=== PATIENT | female | born 2000 | race Caucasian/White ===

== ENCOUNTER 2020-05-26 20:30 | Observation (INO) | payer OTHER, SELFPAY ==
--- OUTSIDE RECORDS SUMMARY | 2020-05-26 20:32 | XMS REPORT | Continuity of Care Document ---
:2000 Author Organization [facility] t Address [facility]3 Amari Rivera [address] [place] [address] Care Team Providers Name Role Phone Doctor Unassigned, Name Attending Clinician Unavailable Problems This patient has no known problems. Allergies, Adverse Reactions, Alerts This patient has no known allergies or adverse reactions. Medications This patient has no known medications. Procedures This patient has no known procedures. Encounters Start End Encounter Admission Attending Care Care Encounter Source Date/Time Date/Time Type Type Clinicians Facility Department ID 2019-12-04 2019-12-04 Orders Doctor BERTA [id number] 00:00:00 00:00:00 Only UnassignedMICHELLE [id number] [place] [facility] [id number] Results This patient has no known results.
[2020-05-26] MEDS ORDERED: ONDANSETRON 4 MG/2 ML VIAL ONE (20:58)
[2020-05-26] MEDS ORDERED: NA CHLORIDE 0.9% 1,000 ML ONE ×2 (20:58→21:36)
[2020-05-26 21:21] LABS: Absolute Lymphocytes (CBC) 1.2 K/uL (0.7-4.9); Basophils % 0.1 % (0-1.3); Hematocrit 43.9 % (36.0-45.0); Lymphocytes % 10.1 % (15.3-44.8); MPV 10.2 fL (7.6-11.3)
[2020-05-26 21:30] LABS: Albumin 4.9 g/dL (3.4-5.0); Bilirubin Direct 0.1 mg/dL (0-0.2); Bilirubin Total 0.6 mg/dL (0.2-1.0); Potassium 3.5 mmol/L (3.5-5.1); Protein, Total 8.1 g/dL (6.4-8.2)
[2020-05-26] MEDS ORDERED: DIPHENHYDRAMINE 50 MG/ML VIAL ONE (21:36)
[2020-05-26] MEDS ORDERED: METOCLOPRAMIDE 10 MG/2mL INJ ONE (21:36)
[2020-05-26] MEDS ORDERED: MAGNE/ALUM HYDROXD 30 ML UCUP ONE (22:20)
[2020-05-26] MEDS ORDERED: LIDOCAINE VISCOUS 2% SOLN 15 ML UDC ONE (22:20)
[2020-05-26 22:51] LABS: Blood Morphology Comment NOT SEEN (NOT SEEN); Platelet Estimate ADEQ
[2020-05-26] MEDS ORDERED: PIPER/TAZO/NS 3.375gm 3.375 GM/100 ML BAG ONE (23:26)
[2020-05-26 23:42] LABS: Urine Blood NEGATIVE (NEG); Urine Glucose NEGATIVE (NEG); Urine Protein NEGATIVE (NEG)
[2020-05-26 23:42] LABS: Barbiturates NEGATIVE (NEGATIVE); Benzodiazepines NEGATIVE (NEGATIVE); Cocaine NEGATIVE (NEGATIVE); METHAMPHETAM NEGATIVE (NEGATIVE); Methadone NEGATIVE (NEGATIVE); Opiates NEGATIVE (NEGATIVE); Phencyclidine NEGATIVE (NEGATIVE); THC Cannibis POSITIVE (NEGATIVE)
[2020-05-27] MEDS ORDERED: NA CHLORIDE 0.9% 1,000 ML ONE (00:59)
--- NOTE | 2020-05-27 01:03 | EDPHYS ---
Physician Documentation [facility] Name: Dafne Munguia Age: 20 yrs Sex: Female : 2000 Arrival Date: 05/26/2020 Time: 20:32 Bed 6 Private MD: ED Physician Adrian Martinez HPI: 05/26 20:49 This 20 yrs old Female presents to ER via Wheelchair with complaints of mh7 Vomiting, Dehydration. 20:49 The patient presents to the emergency department with nausea, that is moderate, mh7 vomiting, that is intermittent. Onset: The symptoms/episode began/occurred today. Possible causes: unknown. The symptoms are aggravated by nothing. The symptoms are alleviated by nothing. 20:50 Associated signs and symptoms: Pertinent positives: abdominal pain, nausea, vomiting, mh7 Pertinent negatives: anorexia, belching, constipation, diarrhea, dysuria, fever, flatulence, GI bleeding, hematuria, vaginal discharge. Severity of symptoms: At their worst the symptoms were moderate today, in the emergency department the symptoms are unchanged. Patient states that she has been walking outside for four hours then started having nausea and vomiting. She has had some abdominal cramping. Denies any fever, chest pain, cough, SOB, diarrhea, dysuria, sick contacts, or recent travel.. 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 - Social history:: Smoking status: Patient denies any tobacco usage or history of. Patient uses street drugs, marijuana, Patient/guardian denies using alcohol. ROS: 20:50 Constitutional: Negative for fever, chills, and weight loss, Eyes: Negative for injury, mh7 pain, redness, and discharge, ENT: Negative for injury, pain, and discharge, Neck: Negative for injury, pain, and swelling, Cardiovascular: Negative for chest pain, palpitations, and edema, Respiratory: Negative for shortness of breath, cough, wheezing, and pleuritic chest pain, Back: Negative for injury and pain, : Negative for injury, bleeding, discharge, and swelling, MS/Extremity: Negative for injury and deformity, Skin: Negative for injury, rash, and discoloration, Neuro: Negative for headache, weakness, numbness, tingling, and seizure, Psych: Negative for depression, anxiety, suicide ideation, homicidal ideation, and hallucinations, Allergy/Immunology: Negative for hives, rash, and allergies, Endocrine: Negative for neck swelling, polydipsia, polyuria, polyphagia, and marked weight changes, Hematologic/Lymphatic: Negative for swollen nodes, abnormal bleeding, and unusual bruising. Exam: 20:50 Head/Face: Normocephalic, atraumatic. Eyes: Pupils equal round and reactive to light, mh7 extra-ocular motions intact. Lids and lashes normal. Conjunctiva and sclera are non-icteric and not injected. Cornea within normal limits. Periorbital areas with no swelling, redness, or edema. Neck: Trachea midline, no thyromegaly or masses palpated, and no cervical lymphadenopathy. Supple, full range of motion without nuchal rigidity, or vertebral point tenderness. No Meningismus. Chest/axilla: Normal chest wall appearance and motion. Nontender with no deformity. No lesions are appreciated. Cardiovascular: Regular rate and rhythm with a normal S1 and S2. No gallops, murmurs, or rubs. Normal PMI, no JVD. No pulse deficits. Respiratory: Lungs have equal breath sounds bilaterally, clear to auscultation and percussion. No rales, rhonchi or wheezes noted. No increased work of breathing, no retractions or nasal flaring. Abdomen/GI: Soft, non-tender, with normal bowel sounds. No distension or tympany. No guarding or rebound. No evidence of tenderness throughout. Back: No spinal tenderness. No costovertebral tenderness. Full range of motion. Skin: Warm, dry with normal turgor. Normal color with no rashes, no lesions, and no evidence of cellulitis. MS/ Extremity: Pulses equal, no cyanosis. Neurovascular intact. Full, normal range of motion. Neuro: Awake and alert, GCS 15, oriented to person, place, time, and situation. Cranial nerves II-XII grossly intact. Motor strength 5/5 in all extremities. Sensory grossly intact. Cerebellar exam normal. Normal gait. Psych: Awake, alert, with orientation to person, place and time. Behavior, mood, and affect are within normal limits. 20:50 Constitutional: The patient appears in no acute distress, alert, awake, uncomfortable. Vital Signs: 20:40 BP 145 / 93; Pulse 63; Resp 16; Temp 97.6(O); Pulse Ox 100% on R/A; Weight 65.77 kg jb4 (R); Height 5 ft. 5 in. (165.10 cm) (R); Pain 10/10; 22:15 BP 159 / 98; Pulse 62; Resp 16; Pulse Ox 100% on R/A; jb4 23:15 BP 126 / 76; Pulse 73; Resp 16; Pulse Ox 100% on R/A; Pain 5/10; jb4 05/27 00:00 BP 112 / 70; Pulse 53; Resp 16; Pulse Ox 98% on R/A; rr5 01:15 BP 124 / 93; Pulse 55; Resp 16; Pulse Ox 100% ; Pain 10/10; rr5 01:39 BP 126 / 87; Pulse 53; Resp 17; Temp 98; Pulse Ox 98% ; rr5 05/26 20:40 Body Mass Index 24.13 (65.77 kg, 165.10 cm) jb4 MDM: 05/26 20:47 Patient medically screened. 7 05/27 00:58 Differential diagnosis: Nonspecific abd pain, gastritis, cholecystitis, pancreatitis, mh7 appendicitis, diverticulitis, viral gastroenteritis, gastroenteritis. Data reviewed: vital signs, nurses notes, lab test result(s), CBC, electrolytes, radiologic studies, CT scan. Data interpreted: Pulse oximetry: on room air is 100 %. Interpretation: normal. Counseling: I had a detailed discussion with the patient and/or guardian regarding: the historical points, exam findings, and any diagnostic results supporting the discharge/admit diagnosis, lab results, radiology results, the need for further work-up and treatment in the hospital. Response to treatment: the patient's symptoms have mildly improved after treatment. Physician consultation: Alcon Sen MD regarding patient's condition, and will see patient in inpatient room. Admission orders: after a detailed discussion of the patient's condition and case, the admit orders are written by me. 05/26 20:49 Order name: Basic Metabolic Panel; Complete Time: 21:36 [facility] 05/26 20:49 Order name: CBC with Diff; Complete Time: 23:02 [facility] 05/26 20:49 Order name: Hepatic Function; Complete Time: 21:36 [facility] 05/26 20:49 Order name: Lipase; Complete Time: 21:36 [facility] 05/26 20:49 Order name: Test, Serum; Complete Time: 21:36 [facility] 05/26 20:49 Order name: UDS; Complete Time: 23:47 [facility] 05/26 20:49 Order name: CPK; Complete Time: 21:36 [facility] 05/26 21:24 Order name: Manual Differential; Complete Time: 23:02 [facility] 05/26 23:16 Order name: Urine --Ancillary (enter results); Complete Time: 23:47 [facility] 05/26 23:16 Order name: Urine Dipstick--Ancillary (enter results); Complete Time: 23:47 [facility] 05/27 01:07 Order name: Basic Metabolic Panel [facility] 05/27 01:07 Order name: Basic Metabolic Panel [facility] 05/27 01:07 Order name: Lipase [facility] 05/27 01:07 Order name: Lipase [facility] 05/26 21:37 Order name: CT Abd/Pelvis - IV Contrast Only [facility] 05/27 01:07 Order name: Liver (Hepatic) Function [facility] 05/27 01:08 Order name: NPO [facility] 05/27 01:08 Order name: CBC with Automated Diff [facility] 05/27 01:08 Order name: CBC with Automated Diff [facility] 05/27 01:08 Order name: Liver (Hepatic) Function [facility] 05/26 20:49 Order name: IV Saline Lock; Complete Time: 21:00 [facility] 05/26 20:49 Order name: Labs collected and sent; Complete Time: 21:01 [facility] 05/26 20:49 Order name: Urine Dipstick-Ancillary (obtain specimen); Complete Time: 23:18 [facility] Administered Medications: 05/26 20:50 Drug: NS 0.9% 1000 ml {Note: Administered by RN. Danielito} Route: IV; Rate: 1000 ml; jb4 Site: right antecubital; 20:50 Drug: Pepcid 20 mg {Note: Administered by RN. Danielito} Route: IVP; Site: right jb4 antecubital; 21:22 Follow up: Response: No adverse reaction jb4 20:51 Drug: Zofran (Ondansetron) 4 mg {Note: Administered by DRU Esteves.} Route: IVP; Site: [facility] right antecubital; 21:22 Follow up: Response: No adverse reaction; Nausea unchanged; Vomiting unchanged jb4 21:30 Drug: Reglan 10 mg Route: IVP; Site: left antecubital; jb4 22:05 Follow up: Response: No adverse reaction; Marked relief of symptoms; Pain is decreased; jb4 Nausea is decreased; Vomiting decreased 21:32 Drug: Benadryl 25 mg Route: IVP; Site: left antecubital; jb4 22:05 Follow up: Response: No adverse reaction; Marked relief of symptoms jb4 21:33 Drug: NS 0.9% 1000 ml Route: IV; Rate: 1 bolus; Site: left antecubital; jb4 22:20 Drug: GI Cocktail without - (Maalox Suspension 30 ml, Lidocaine Liquid 2 % 15 jb4 ml) Route: PO; 23:35 Drug: Zosyn 3.375 grams Route: IVPB; Infused Over: 60 mins; Site: left antecubital; jb4 05/27 00:45 Drug: NS 0.9% 1000 ml Route: IV; Rate: 1000 ml; Site: left antecubital; rr5 01:41 Follow up: Response: No adverse reaction; IV Status: Completed infusion; IV Intake: rr5 1000ml 01:30 Drug: morphine 4 mg {Note: rass 0.} Route: IVP; Site: left antecubital; rr5 01:41 Follow up: Response: No adverse reaction; Pain is decreased; RASS: Alert and Calm (0) rr5 Disposition: 05/27/20 01:02 Hospitalization ordered by Alcon Sen for Observation. Preliminary diagnosis are Abdominal Pain, Vomiting. - Bed requested for Telemetry/MedSurg (observation). - Status is Observation. jb4 - Condition is Stable. - Problem is new. - Symptoms have improved. Signatures: Dispatcher [employer] EDWei Avery RN RN Flavia Borrego RN RN Aditya Peck RN RN [facility] Harmeet Biggs RN RN rr5 Adrian Martinez MD MD 7 Corrections: (The following items were deleted from the chart) 01:18 01:02 Hospitalization Ordered by Alcon Sen MD for Observation. Preliminary diagnosis cg is Abdominal Pain; Vomiting. Bed requested for Telemetry/MedSurg (observation). Status is Observation. Condition is Stable. Problem is new. Symptoms have improved. mh7 01:54 01:18 05/27/2020 01:02 Hospitalization Ordered by Alcon Sen MD for Observation. jb4 Preliminary diagnosis is Abdominal Pain; Vomiting. Bed requested for Telemetry/MedSurg (observation). Status is Observation. Condition is Stable. Problem is new. Symptoms have improved. cg
--- NOTE | 2020-05-27 01:03 | ER ---
Nurse's Notes [facility] Name: Dafne Munguia Age: 20 yrs Sex: Female : 2000 Arrival Date: 05/26/2020 Time: 20:32 Bed 6 Private MD: Diagnosis: Abdominal Pain;Vomiting Presentation: 05/26 20:40 Chief complaint: Patient states: I was walking around in the sun today for about 4 jb4 hours without eating or drinking anything. I have been vomiting since 1300. My stomach, chest, and esophagus are burning. Coronavirus screen: Proceed with normal triage. Ebola Screen: No symptoms or risks identified at this time. Initial Sepsis Screen: Does the patient meet any 2 criteria? No. Patient's initial sepsis screen is negative. Does the patient have a suspected source of infection? No. Patient's initial sepsis screen is negative. Risk Assessment: Do you want to hurt yourself or someone else? Patient reports no desire to harm self or others. Onset of symptoms was May 26, 2020. Transition of care: patient was not received from another setting of care. 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 - Social history:: Smoking status: Patient denies any tobacco usage or history of. Patient uses street drugs, marijuana, Patient/guardian denies using alcohol. Screenin:00 Abuse screen: Denies threats or abuse. Denies injuries from another. Nutritional rr5 screening: No deficits noted. Tuberculosis screening: No symptoms or risk factors identified. Fall Risk IV access (20 points). Total Brantley Fall Scale indicates No Risk (0-24 pts). Assessment: 20:49 General: Appears in no apparent distress. comfortable, Behavior is calm, cooperative. jb4 Pain: Complains of pain in chest and abdomen Pain does not radiate. Pain currently is 10 out of 10 on a pain scale. Quality of pain is described as burning, Pain began 1300 Is continuous. Neuro: Level of Consciousness is awake, alert, obeys commands, Oriented to person, place, time, situation. Cardiovascular: Patient's skin is warm and dry. Respiratory: Airway is patent Respiratory effort is even, unlabored, Respiratory pattern is regular, symmetrical. GI: Abdomen is flat, Bowel sounds present X 4 quads. Abd is soft X 4 quads Abd is non tender in right upper quadrant, left upper quadrant and right lower quadrant Abdomen is tender to palpation in left lower quadrant Reports lower abdominal pain, nausea, vomiting. : No signs and/or symptoms were reported regarding the genitourinary system. EENT: No signs and/or symptoms were reported regarding the EENT system. Derm: Skin is intact, Skin is dry, Skin is pale, Skin temperature is warm. Musculoskeletal: Circulation, motion, and sensation intact. Range of motion: intact in all extremities. 21:08 Reassessment: Pt's family member called, said something inaudible and hung up. Pt jb4 notified. 22:04 Reassessment: Patient appears in no apparent distress at this time. Patient and/or jb4 family updated on plan of care and expected duration. Pain level reassessed. Patient is alert, oriented x 3, equal unlabored respirations, skin warm/dry/pink. Patient states feeling better. 23:00 Reassessment: Patient appears in no apparent distress at this time. Patient and/or jb4 family updated on plan of care and expected duration. Pain level reassessed. Patient is alert, oriented x 3, equal unlabored respirations, skin warm/dry/pink. Provider at the bedside explaining test results. Pt verbalizes wanting to go home, provider and myself explained to the patient the possibility of worsening of symptoms up to the point of . Pt verbalized understanding of teaching, verbalized willingness to think it over. 23:30 Reassessment: Pt charging her phone to call family to determine if she wants to be jb4 admitted. 05/27 00:00 Reassessment: Patient appears in no apparent distress at this time. Patient and/or jb4 family updated on plan of care and expected duration. Pain level reassessed. Patient is alert, oriented x 3, equal unlabored respirations, skin warm/dry/pink. 01:00 Reassessment: Patient appears in no apparent distress at this time. Patient and/or jb4 family updated on plan of care and expected duration. Pain level reassessed. Patient is alert, oriented x 3, equal unlabored respirations, skin warm/dry/pink. Pt reports pain in her abdomen. Is doubled over in pain. Provider notified, see MAR for orders. Vital Signs: 05/26 20:40 BP 145 / 93; Pulse 63; Resp 16; Temp 97.6(O); Pulse Ox 100% on R/A; Weight 65.77 kg jb4 (R); Height 5 ft. 5 in. (165.10 cm) (R); Pain 10/10; 22:15 BP 159 / 98; Pulse 62; Resp 16; Pulse Ox 100% on R/A; jb4 23:15 BP 126 / 76; Pulse 73; Resp 16; Pulse Ox 100% on R/A; Pain 5/10; jb4 05/27 00:00 BP 112 / 70; Pulse 53; Resp 16; Pulse Ox 98% on R/A; rr5 01:15 BP 124 / 93; Pulse 55; Resp 16; Pulse Ox 100% ; Pain 10/10; rr5 01:39 BP 126 / 87; Pulse 53; Resp 17; Temp 98; Pulse Ox 98% ; rr5 05/26 20:40 Body Mass Index 24.13 (65.77 kg, 165.10 cm) jb4 ED Course: 05/26 20:32 Patient arrived in ED. cl3 20:33 Adrian Martinez MD is Attending Physician. mh7 20:40 Aditya Peck RN is Primary Nurse. jb4 20:44 Triage completed. jb4 20:45 Arm band placed on right wrist. jb4 20:55 Inserted saline lock: 20 gauge in left antecubital area, using aseptic technique. Blood rr5 collected. 21:01 Patient has correct armband on for positive identification. Bed in low position. Call rr5 light in reach. Pulse ox on. NIBP on. 22:14 CT Abd/Pelvis - IV Contrast Only In Process Unspecified. EDMS 05/27 01:00 Alcon Sen MD is Hospitalizing Provider. 7 01:41 No provider procedures requiring assistance completed. Patient admitted, IV remains in rr5 place. intact, No redness/swelling at site. Administered Medications: 05/26 20:50 Drug: NS 0.9% 1000 ml {Note: Administered by RN. Danielito} Route: IV; Rate: 1000 ml; jb4 Site: right antecubital; 20:50 Drug: Pepcid 20 mg {Note: Administered by RN. Danielito} Route: IVP; Site: right jb4 antecubital; 21:22 Follow up: Response: No adverse reaction jb4 20:51 Drug: Zofran (Ondansetron) 4 mg {Note: Administered by RN. Danielito} Route: IVP; Site: jb right antecubital; 21:22 Follow up: Response: No adverse reaction; Nausea unchanged; Vomiting unchanged jb4 21:30 Drug: Reglan 10 mg Route: IVP; Site: left antecubital; jb4 22:05 Follow up: Response: No adverse reaction; Marked relief of symptoms; Pain is decreased; jb4 Nausea is decreased; Vomiting decreased 21:32 Drug: Benadryl 25 mg Route: IVP; Site: left antecubital; jb4 22:05 Follow up: Response: No adverse reaction; Marked relief of symptoms jb4 21:33 Drug: NS 0.9% 1000 ml Route: IV; Rate: 1 bolus; Site: left antecubital; jb4 22:20 Drug: GI Cocktail without - (Maalox Suspension 30 ml, Lidocaine Liquid 2 % 15 jb4 ml) Route: PO; 23:35 Drug: Zosyn 3.375 grams Route: IVPB; Infused Over: 60 mins; Site: left antecubital; jb4 05/27 00:45 Drug: NS 0.9% 1000 ml Route: IV; Rate: 1000 ml; Site: left antecubital; rr5 01:41 Follow up: Response: No adverse reaction; IV Status: Completed infusion; IV Intake: rr5 1000ml 01:30 Drug: morphine 4 mg {Note: rass 0.} Route: IVP; Site: left antecubital; rr5 01:41 Follow up: Response: No adverse reaction; Pain is decreased; RASS: Alert and Calm (0) rr5 Intake: 01:41 IV: 1000ml; Total: 1000ml. rr5 Outcome: 01:02 Decision to Hospitalize by Provider. [facility] 01:41 Admitted to Med/surg accompanied by nurse, via stretcher, room 210, with chart, Report rr5 called to danyelle 01:41 Condition: stable 01:41 Instructed on the need for admit. 01:54 Patient left the ED. jb4 Signatures: Dispatcher [employer] EDAditya Fletcher RN RN jb4 Harmeet Biggs RN RN rr5 Valeriano Flores cl3 Adrian Martinez MD MD mh7
[2020-05-27] MEDS ORDERED: MORPHINE 4 MG/ML SYR IV PRN (01:06)
[2020-05-27] MEDS ORDERED: ONDANSETRON 4 MG/2 ML VIAL IV PRN (01:06)
[2020-05-27] MEDS ORDERED: MORPHINE 4 MG/ML SYR ONE (01:38)
[2020-05-27] MEDS ORDERED: D5 0.45 NS 1,000 ML IV SCH (02:00)
[2020-05-27 03:44] VITALS: BMI 24.0
[2020-05-27] MEDS ORDERED: PIPER/TAZO/NS 3.375gm 3.375 GM/100 ML BAG IVPB SCH ×2 (09:00)
[2020-05-27] MEDS ORDERED: Ringers Lactate 1,000 ML IV ONE (09:22)
[2020-05-27] MEDS ORDERED: BUPIVACA 0.25%/EPI 0.0005%/PF 30 ML VIAL ONE (09:23)
[2020-05-27] MEDS ORDERED: propofoL 200 MG/20 ML VIAL IV ONE (09:26)
[2020-05-27] MEDS ORDERED: MIDAZOLAM HCL 2 MG/2 ML INJ ONE (09:26)
[2020-05-27] MEDS ORDERED: FENTANYL CITR 100 MCG/2 ML ONE ×2 (09:26→10:28)
[2020-05-27] MEDS ORDERED: dexAMETHasone 10 MG/ML VIAL ONE (09:27)
[2020-05-27] MEDS ORDERED: LIDOCAINE 2% MPF 5 ML VIAL ONE (09:27)
[2020-05-27] MEDS ORDERED: KETOROLAC 30 MG/ML INJ ONE (09:27)
[2020-05-27] MEDS ORDERED: ROCURONIUM 50 MG/5 ML VIAL IV ONE (09:28)
[2020-05-27] MEDS ORDERED: ONDANSETRON 4 MG/2 ML VIAL ONE (09:28)
--- NOTE | 2020-05-27 09:57 | HP ---
Date of Admission: 05/27/2020 Brief History Of Present Illness: The patient is a 20-year-old female, who presents to [facility] with 1-day history of epigastric abdominal pain. She was working outside. She felt like she g ot dehydrated, had some nausea, vomiting, profuse abdominal pain in the epigastrium and periumbilical region which radiated predominantly down to the right lower quadrant. She has not had similar episo kraig before of this level of intensity, but has had a few episodes of abdominal pain in the right lowe r quadrant before, but were very mild compared to this. They only lasted for a day or two and ultima tely she resolved. She states that many of her family members have had their appendix removed. She is concerned that it might be an appendicitis, and as such, she came to the emergency room with the esther hawkins-stated complaint. Since being admitted, she has a significant improvement of pain with pain med ication, but otherwise continues to have pain in the right lower quadrant. It is essentially focused at this point and has some irritation to the suprapubic and right lower quadrant predominantly, but is predominantly focused and most intense in the right lower quadrant. She had some nausea and vomit ing associated. No sick contacts. No recent travel. No new food exposures. Past Medical History: Denies any medical problems. Past Surgical History: She has had an umbilical hernia repair at age 2. She does not recall the det ails of which other than she had her umbilical hernia repair, unknown mesh placement. She additional ly had left forearm surgery for an injury. Allergies: SHE IS ALLERGIC TO AN ANTIFUNGAL MEDICATION, NOT SULFA BY HER DESCRIPTION. SHE IS NOT AW ARE OF BEING ALLERGIC TO ANY SULFA ANTIBIOTICS, WHICH IS LISTED IN THE COMPUTER. SHE STATES THAT SHE IS ONLY ALLERGIC TO A FOOT SPRAY, WHICH WAS AN ANTIFUNGAL, WHICH CAUSED IRRITATION. Medications: She denies taking medications. She admits to smoking marijuana daily. She denies any recreational drug use. Otherwise, she drinks alcohol very sparingly by her report and denies cigaret te usage. Review of Systems: Ten-point review of systems other than HPI, denies. Family History: Reviewed and noncontributory. Physical Examination: Vital Signs: At the time of my examination, blood pressure was 119/71, pulse 75, respiratory rate 20 , temperature 98.0. Her pain level was between a 3 and a 5. She is saturating 97% on room air. General: She is awake, alert, and oriented. Psychiatric: She is appropriate and conversive. HEENT: Normocephalic. Sclerae anicteric. Mucous membranes are moist. Oropharynx is clear. Neck: Supple. No JVD. Chest: Normal expansion and excursion. Cardiovascular: Regular rate and rhythm. Pulmonary: Clear to auscultation bilaterally. Abdomen: Soft with positive right lower quadrant tenderness to palpation, focal at McBurney point. She has some mild voluntary guarding. No rebound. She has a scar from a well-healed umbilical herni a repair. There is no obvious umbilical hernia at this point. Pelvis: Stable. Extremities: No clubbing, cyanosis, edema. Skin: Warm and dry. Laboratory Data: Reveals a white blood cell count 11.6, hemoglobin of 14.9, hematocrit of 43.9, plat elet count is 182, neutrophils 87%. Her sodium 141, potassium 3.5, chloride 108, carbon dioxide 23, BUN 14, creatinine 0.8, glucose is 118. Her total bilirubin is 0.6, direct component 0.1. Her AST w as 33, ALT 36, alkaline phosphatase was 83. Her CK was 357, lipase was 49. Urine test was negative. She had trace leukocyte esterase in her urine, 4+ ketones. Her THC screen was positive; otherwise, tox screen was negative. Otherwise, she had a CT scan performed of the abdomen and pelvis . The official dictation was read as nonvisualization of the appendix and small amount of fluid in t he right lower quadrant. Acute appendicitis cannot be entirely excluded. Correlate with rebound ten derness. Physiologic pelvic change with heterogeneous enlargement of the uterus, 2 cm left ovarian c yst, and moderate amount of free pelvic fluid. No followup imaging is recommended. [id number] re periportal edema and a moderate hiatal hernia. Assessment And Plan: This is a 20-year-old female, who comes in with abdominal pain, nausea, vomitin g, and pain now localized to the right lower quadrant concerning for possible early appendicitis. 1.IV fluid hydration. 2.Antibiotic coverage with Zosyn 3.375 IV q.6. 3.I have explained the risks, benefits, and alternatives of diagnostic laparoscopy and possible appe ndectomy including, but not limited to bleeding, infection, damage to the surrounding tissue, need fo r further operative procedures. The patient agrees to proceed as indicated. BRANDIE/GLENN Voice ID: [id number]
[2020-05-27] MEDS ORDERED: GLYCOPYRROLATE 0.2 MG/ML SYR ONE ×2 (10:34→10:35)
[2020-05-27] MEDS ORDERED: NEOSTIGMINE 1 MG/ML -5 ML ONE (10:35)
--- NOTE | 2020-05-27 10:44 | P.OP ---
Preoperative diagnosis: Appendicitis Postoperative diagnosis: Appendicitis Primary procedure: Laparoscopic Appendectomy Anesthesia: GETA + Local Estimated blood loss: <5cc Specimen: Vermiform Appendix Findings: Mild dilation, RLQ inflammatory changes to periappediceal pelvis Complications: None Transferred to: Recovery Room Condition: Good
[2020-05-27 10:59] VITALS: O2SAT 100
[2020-05-27] MEDS ORDERED: HYDROCODONE/APAP 5/325 MG TAB PO PRN (11:36)
--- NOTE | 2020-05-27 11:47 | OP ---
Date of Procedure: 05/27/2020 Surgeon: Alcon Sen MD, Preoperative Diagnosis: Appendicitis. Postoperative Diagnosis: Appendicitis. Procedure Performed: Laparoscopic appendectomy. Anesthesia: General endotracheal plus local with 0.25% Marcaine with epinephrine. Estimated Blood Loss: Less than 5 mL. Specimen: Vermiform appendix. Findings: Mild dilatation to the appendix and right lower quadrant. Inflammatory changes in the per iappendiceal pelvis. Complications: None. Disposition: Transferred to recovery room in good condition. Procedure In Detail: After informed consent was obtained, the patient was brought to the operating r oom, prepped and draped in the usual sterile fashion. After adequate anesthesia was achieved, an inf raumbilical area was anesthetized with 0.25% Marcaine, sharply incised. A 5 mm trocar was introduced into the abdomen without evidence of complication. Insufflation was obtained to 15 mm at this time. No injury to vital structures upon entry into the abdomen. The abdomen was inspected this time. T here were some inflammatory changes and free physiologic fluid, which appeared murky in the pelvis an d the right lower quadrant and some mild inflammatory changes of the right lower quadrant in the sergo appendiceal region. Two additional trocars were placed, 1 in the right lower quadrant, 1 in the left lower quadrant. This was similarly anesthetized and sharply incised, and 5 mm trocar was introduced in the abdomen without evidence of complication. The umbilical trocar was then up-sized to a 12 mm under direct visualization without evidence of complication. The patient was positioned head down an d right side up position. Ratcheted grasper was used to grasp the patient's appendix, create a mesoa ppendiceal window at the confluence of the cecum with a [place] retractor and the Endo TRESA 35 blue l oad fired across the base of the appendix with good approximation of tissues. The mesoappendix was t hen taken down using LigaSure device without any additional hemostatic measures required. The staple line appeared to be good and intact without any evidence of bleeding or leakage. The appendix was t hen placed in EndoCatch bag and removed through the umbilical trocar and sent off for pathologic exam ination. The abdomen was completely reinsufflated at this point and irrigated copiously with multipl e liters of saline and suctioned out dry. The patient was positioned multiple ways and the pelvis wa s inspected. The adnexa was inspected also which had some physiologic fluid and evidence of possible recent ruptured luteal cyst, but no obvious cysts were appreciated. The area was copiously irrigate d multiple times. There was no bleeding. No additional hemostasis is required. No abscess or drain able collections were evident. All effluent was then sucked out until completely dry. The patient w as then positioned back in neutral position. The remainder of the effluent was suctioned out and the trocar site was inspected and the trocar was removed at the umbilical position. The umbilical troca r site was then closed using a Michael-Danilo suture passer with 0 Vicryl in an interrupted fashion without evidence of complication with good apposition of tissues. The abdomen was then completely de sufflated under direct visualization without evidence of complication. All trocars were removed. Al l skin incisions were copiously irrigated and closed with 4-0 Monocryl in a running fashion. Dermabo nd was placed over top. The patient tolerated the procedure well without evidence of complication, t ransferred to the PACU in good condition. All counts were correct at the end of the case. BRANDIE/GLENN Voice ID: [id number] Report ID: [id number]
[2020-05-27 12:14] VITALS: BP 129/79; TEMP 97.7
--- NOTE | 2020-05-30 08:52 | RAD REPORT ---
EXAM DESCRIPTION: CT - Abdomen Pelvis W Contrast - 05/27/2020 7:50 am ADDENDUM #1 ADDENDUM: THIS REPORT CONTAINS FINDINGS THAT MAY BE CRITICAL TO PATIENT'S CARE: The findings were verbally discussed via telephone conference with Adrian Martinez by Dr. Vega on 05/26/2020 10:57 PM CDT. The results were acknowledged and understood. Electronically signed by: Asif Vega DO 05/26/2020 10:57 PM CDT End of Addendum EXAM DESCRIPTION: CT Abdomen and Pelvis With Intravenous Contrast CLINICAL HISTORY: The patient is 20 years old and is Female; Abd pain; Nausea / vomiting TECHNIQUE: Axial computed tomography images of the abdomen and pelvis with intravenous contrast. S agittal and coronal reformatted images were created and reviewed. This CT exam was performed using one or more of the following dose reduction techniques: automated exposure control, adjustment of t he mA and/or kV according to patient size, and/or use of iterative reconstruction technique. DLP: 829 mGy*cm COMPARISON: None. FINDINGS: LUNG BASES: Lung bases are clear. HEART: Visualized heart is normal. MEDIASTINUM: Moderate hiatal hernia. ABDOMEN: LIVER: Moderate to severe periportal edema. GALLBLADDER AND BILE DUCTS: Unremarkable. No calcified stones. No ductal dilation. PANCREAS: Unremarkable. No mass. No ductal dilation. SPLEEN: Unremarkable. No splenomegaly. ADRENALS: Unremarkable. No mass. KIDNEYS AND URETERS: Subcentimeter left renal cyst. No hydronephrosis. STOMACH AND BOWEL: Unremarkable. No obstruction. No mucosal thickening. PELVIS: APPENDIX: Nonvisualization of the appendix. Small amount of fluid in the right lower quadrant. BLADDER: Bladder is decompressed. REPRODUCTIVE: Unremarkable as visualized. ABDOMEN and PELVIS: INTRAPERITONEAL SPACE: Physiologic pelvic changes with heterogenous enlargement of the uterus, 2 c m left ovarian cyst and moderate amount of free pelvic fluid. No free air. BONES/JOINTS: No acute fracture. No dislocation. SOFT TISSUES: Unremarkable. VASCULATURE: Unremarkable. No abdominal aortic aneurysm. LYMPH NODES: Unremarkable. No enlarged lymph nodes. IMPRESSION: 1. Nonvisualization of the appendix and small amount of fluid in the right lower quadr ant. Acute appendicitis cannot be entirely excluded. Correlate with rebound tenderness. 2. Physiologic pelvic changes with heterogenous enlargement of the uterus, 2 cm left ovarian cyst a nd moderate amount of free pelvic fluid. No follow-up imaging is recommended. Reference: US recommendations based on Radiology 2010 Sep;256(3):943-54; CT/MR recommendations based on J Am Ivon Radiol 2013;10:675-681. 3. Moderate to severe periportal edema. 4. Moderate hiatal hernia. Electronically signed by: Asif Vega DO 05/26/2020 10:44 PM CDT Due to temporary technical issues with the PACS/Fluency reporting system, reports are being signed by the in house radiologist without review as a courtesy to ensure prompt reporting. The interpreting r adiologist is fully responsible for the content of the report.
== END 2020-05-27 12:55 | disposition home or self-care (01) ==
LOC: ER 20:30 → ERHOLD 05-27 01:15 → 2ND 05-27 01:37
PROVIDERS: ADMIT Surgery; ATTEND Surgery
PROC: 0DTJ4ZZ Resection of Appendix, Percutaneous Endoscopic Approach (ICD-10-PCS; principal; 2020-05-27 09:15)
DX: K37 Unspecified appendicitis (principal); F12.90 Cannabis use, unspecified, uncomplicated; Z20.828 Contact with and (suspected) exposure to other viral communicable diseases; Z88.8 Allergy status to other drugs, medicaments and biological substances
CPT/HCPCS: 36415; 74177; 80048; 80076; 80307; 81003; 81025; 82550; 83690; 84703; 85025; 88304; 96361; 96374; 96375; 99285; G0378; J1100; J1200; J2250; J2405; J2543; J2704; J2710; J2765; J3010; J7030; J7120; J7799; Q9967; U0002

== ENCOUNTER 2020-07-28 17:10 | Emergency (ER) | payer BC, SELFPAY ==
--- OUTSIDE RECORDS SUMMARY | 2020-07-28 17:12 | XMS REPORT | Continuity of Care Document ---
:2000 Author Organization [facility] t Address [address] [place] [address] Care Team Providers Name Role Phone Doctor [...] ID 2019-12-04 2019-12-04 Orders Doctor BERTA [id number] 00:00:00 00:00:00 Only UnassMICHELLE schroeder [id number] [place] [facility] [id number] Results This patient has no known results.
[2020-07-28 18:56] LABS: Urine Blood NEGATIVE (NEG); Urine Glucose NEGATIVE (NEG); Urine Protein NEGATIVE (NEG); Urine Specific Gravity >1.030 (1.005-1.030); Urine pH 5.5 (5.0-7.0)
[2020-07-28] MEDS ORDERED: ONDANSETRON 4 MG (ODT) TAB ONE (19:01)
[2020-07-28] MEDS ORDERED: KETOROLAC 30 MG/ML INJ ONE (19:12)
--- NOTE | 2020-07-28 20:08 | EDPHYS ---
Physician Documentation [facility] Name: Dafne Munguia Age: 20 yrs Sex: Female : 2000 Arrival Date: 07/28/2020 Time: 17:12 Bed 19 Private MD: ED Physician Valente Mccormack HPI: 07/28 21:48 This 20 yrs old Female presents to ER via Ambulatory with complaints of kb Headache, Throat Problem. 21:50 The patient presents with sore throat. The patient describes throat pain as constant. kb Onset: The symptoms/episode began/occurred 3 day(s) ago. Severity of symptoms: At their worst the symptoms were moderate, in the emergency department the symptoms are unchanged. Modifying factors: The symptoms are alleviated by nothing, the symptoms are aggravated by nothing. Associated signs and symptoms: Pertinent positives: fever, Sore throat. The patient has not experienced similar symptoms in the past. The patient has not recently seen a physician. 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 - Social history:: Smoking status: Patient denies any tobacco usage or history of. ROS: 21:48 Cardiovascular: Negative for chest pain, palpitations, and edema, Respiratory: Negative kb for shortness of breath, cough, wheezing, and pleuritic chest pain, Abdomen/GI: Negative for abdominal pain, nausea, vomiting, diarrhea, and constipation, Back: Negative for injury and pain, MS/Extremity: Negative for injury and deformity, Skin: Negative for injury, rash, and discoloration. 21:48 Constitutional: Positive for body aches, fatigue, fever, malaise. 21:48 ENT: Positive for sore throat. 21:48 Neuro: Positive for headache. Exam: 21:48 Constitutional: This is a well developed, well nourished patient who is awake, alert, kb and in no acute distress. Head/Face: Normocephalic, atraumatic. ENT: Nares patent. No nasal discharge, no septal abnormalities noted. Tympanic membranes are normal and external auditory canals are clear. Oropharynx with no redness, swelling, or masses, exudates, or evidence of obstruction, uvula midline. Mucous membranes moist. Chest/axilla: Normal chest wall appearance and motion. Nontender with no deformity. No lesions are appreciated. Cardiovascular: Regular rate and rhythm with a normal S1 and S2. No gallops, murmurs, or rubs. Normal PMI, no JVD. No pulse deficits. Respiratory: Lungs have equal breath sounds bilaterally, clear to auscultation and percussion. No rales, rhonchi or wheezes noted. No increased work of breathing, no retractions or nasal flaring. Abdomen/GI: Soft, non-tender, with normal bowel sounds. No distension or tympany. No guarding or rebound. No evidence of tenderness throughout. Skin: Warm, dry with normal turgor. Normal color with no rashes, no lesions, and no evidence of cellulitis. MS/ Extremity: Pulses equal, no cyanosis. Neurovascular intact. Full, normal range of motion. Neuro: Awake and alert, GCS 15, oriented to person, place, time, and situation. Cranial nerves II-XII grossly intact. Motor strength 5/5 in all extremities. Sensory grossly intact. Cerebellar exam normal. Normal gait. 21:48 Neck: Lymph nodes: lymphadenopathy is appreciated, anterior cervical nodes. Vital Signs: 17:37 BP 126 / 83; Pulse 97; Resp 14; Temp 99.0(TE); Pulse Ox 99% on R/A; Weight 72.57 kg; ss Height 5 ft. 4 in. (162.56 cm); Pain 8/10; 18:53 BP 142 / 72; Pulse 87; Resp 16; Temp 98.5; Pulse Ox 98% on R/A; ll2 19:50 BP 113 / 49; Pulse 78; Resp 16; Pulse Ox 99% on R/A; ll2 17:37 Body Mass Index 27.46 (72.57 kg, 162.56 cm) ss MDM: 18:28 Patient medically screened. kb 21:48 Data reviewed: vital signs, nurses notes. Data interpreted: Pulse oximetry: on room air kb is 99 %. Interpretation: normal. Counseling: I had a detailed discussion with the patient and/or guardian regarding: the historical points, exam findings, and any diagnostic results supporting the discharge/admit diagnosis, lab results, the need for outpatient follow up, a family practitioner, to return to the emergency department if symptoms worsen or persist or if there are any questions or concerns that arise at home. 07/28 18:38 Order name: Urine Dipstick--Ancillary (enter results); Complete Time: 18:59 em1 07/28 18:38 Order name: Urine --Ancillary (enter results); Complete Time: 18:59 em1 07/28 18:50 Order name: Flu; Complete Time: 19:45 kb 07/28 18:50 Order name: Strep; Complete Time: 19:45 kb 07/28 19:43 Order name: Throat Culture EDMS Administered Medications: 18:58 Drug: Zofran (Ondansetron) 4 mg Route: PO; ll2 19:00 Follow up: Response: No adverse reaction ll2 19:08 Drug: TORadol 30 mg Route: IM; Site: left deltoid; ll2 Disposition: 07/28/20 20:07 Discharged to Home. Impression: Acute lymphadenitis, Acute pharyngitis. - Condition is Stable. - Discharge Instructions: Pharyngitis, [id number], Viral Respiratory Infection, [id number]. - Medication Reconciliation Form, Thank You Letter, Antibiotic Education, Prescription Opioid Use, Work release form form. - Follow up: Emergency Department; When: As needed; Reason: Worsening of condition. Follow up: Private Physician; When: 2 - 3 days; Reason: Recheck today's complaints, Continuance of care, Re-evaluation by your physician. Addendum: 08/02/2020 19:06 Co-signature as Attending Physician, Valente Mccormack MD. r n Signatures: Dispatcher [facility] Valentina Umanzor, FERMIN-Jovan EXCELLENCE MANAGER-CkValente Leach MD MD rn Smirch, Shelby, RN RN ss Linscombe, Lacie, RN RN ll2 Corrections: (The following items were deleted from the chart) 07/28 20:08 20:07 07/28/2020 20:07 Discharged to Home. Impression: Acute lymphadenitis. Condition kb is Stable. Forms are Medication Reconciliation Form, Thank You Letter, Antibiotic Education, Prescription Opioid Use. Follow up: Emergency Department; When: As needed; Reason: Worsening of condition. Follow up: Private Physician; When: 2 - 3 days; Reason: Recheck today's complaints, Continuance of care, Re-evaluation by your physician. kb 20:29 20:08 07/28/2020 20:07 Discharged to Home. Impression: Acute lymphadenitis; Acute ll2 pharyngitis. Condition is Stable. Forms are Medication Reconciliation Form, Thank You Letter, Antibiotic Education, Prescription Opioid Use. Follow up: Emergency Department; When: As needed; Reason: Worsening of condition. Follow up: Private Physician; When: 2 - 3 days; Reason: Recheck today's complaints, Continuance of care, Re-evaluation by your physician. kb
--- NOTE | 2020-07-28 20:08 | ER ---
Nurse's Notes [facility] Name: Dafne Munguia Age: 20 yrs Sex: Female : 2000 Arrival Date: 07/28/2020 Time: 17:12 Bed 19 Private MD: Diagnosis: Acute lymphadenitis;Acute pharyngitis Presentation: 07/28 17:37 Chief complaint: Patient states: Bump behind ear x 1 week that seems to be spreading ss down throat. Sore throat and chills that come and go that began yesterday. Coronavirus screen: Client denies travel out of the [place] in the last 14 days. Ebola Screen: Patient denies exposure to infectious person. Patient denies travel to an Ebola-affected area in the 21 days before illness onset. Initial Sepsis Screen: Does the patient meet any 2 criteria? No. Patient's initial sepsis screen is negative. Does the patient have a suspected source of infection? No. Patient's initial sepsis screen is negative. Risk Assessment: Do you want to hurt yourself or someone else? Patient reports no desire to harm self or others. Note Pt believes she may be . States, "It won't show up on a urine test. I'm scheduled to have a blood test on the .". Onset of symptoms was July 22, 2020. 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 - Social history:: Smoking status: Patient denies any tobacco usage or history of. Screenin:27 Abuse screen: Denies threats or abuse. Nutritional screening: No deficits noted. ll2 Tuberculosis screening: No symptoms or risk factors identified. Fall Risk None identified. Assessment: 18:51 General: Appears in no apparent distress. Behavior is calm, cooperative, appropriate ll2 for age. Pain: Complains of pain in neck and right ear Pain currently is 7 out of 10 on a pain scale. Neuro: Level of Consciousness is awake, alert, obeys commands, Oriented to person, place, time, situation. Cardiovascular: Capillary refill < 3 seconds Patient's skin is warm and dry. Respiratory: Airway is patent Respiratory effort is even, unlabored, Respiratory pattern is regular, symmetrical. GI: No signs and/or symptoms were reported involving the gastrointestinal system. : No signs and/or symptoms were reported regarding the genitourinary system. EENT: No signs and/or symptoms were reported regarding the EENT system. Derm: Skin is intact, is healthy with good turgor, Skin is dry, Skin is pink, warm \\T\\ dry. Musculoskeletal: Circulation, motion, and sensation intact. Range of motion: intact in all extremities. Vital Signs: 17:37 BP 126 / 83; Pulse 97; Resp 14; Temp 99.0(TE); Pulse Ox 99% on R/A; Weight 72.57 kg; ss Height 5 ft. 4 in. (162.56 cm); Pain 8/10; 18:53 BP 142 / 72; Pulse 87; Resp 16; Temp 98.5; Pulse Ox 98% on R/A; ll2 19:50 BP 113 / 49; Pulse 78; Resp 16; Pulse Ox 99% on R/A; ll2 17:37 Body Mass Index 27.46 (72.57 kg, 162.56 cm) ED Course: 17:12 Patient arrived in ED. ag5 17:39 Triage completed. ss 17:39 Arm band placed on right wrist. ss 18:19 Ariana Knutson, DRU is Primary Nurse. ll2 18:27 Valentina Umanzor FNP-C [facility]. kb 18:27 Valente Mccormack MD is Attending Physician. kb 20:27 Patient has correct armband on for positive identification. Bed in low position. Call ll2 light in reach. Side rails up X 1. Pulse ox on. NIBP on. 20:28 No provider procedures requiring assistance completed. Patient did not have IV access ll2 during this emergency room visit. Administered Medications: 18:58 Drug: Zofran (Ondansetron) 4 mg Route: PO; ll2 19:00 Follow up: Response: No adverse reaction ll2 19:08 Drug: TORadol 30 mg Route: IM; Site: left deltoid; ll2 Outcome: 20:07 Discharge ordered by . kb 20:29 Discharged to ll2 20:29 Condition: stable 20:29 Discharge instructions given to patient, Instructed on discharge instructions, follow up and referral plans. Demonstrated understanding of instructions, follow-up care. 20:29 Patient left the ED. ll2 Signatures: Valentina Umanzor FNP-C FNP-Gladys Nogueira, RN RN Frank Kate ag5 Ariana Knutson RN RN ll2
[2020-07-28 20:36] VITALS: TEMP 98.5
[2020-07-28 20:37] VITALS: BP 113/49; O2SAT 99
== END 2020-07-28 20:29 | disposition home or self-care (01) ==
LOC: ER 17:10
DX: L04.9 Acute lymphadenitis, unspecified (principal); Z88.8 Allergy status to other drugs, medicaments and biological substances
CPT/HCPCS: 81003; 81025; 87070; 87081; 87804; 96372; 99283

== ENCOUNTER 2020-10-02 13:47 | Emergency (ER) | payer BC ==
--- OUTSIDE RECORDS SUMMARY | 2020-10-02 13:49 | XMS REPORT | Continuity of Care Document ---
:2000 Author Organization [facility] t Address [address] [place] [address] Care Team Providers Name Role Phone Lew Viveros MD Attending Clinician Problems This patient has no known problems. Allergies, Adverse Reactions, Alerts This patient has no known allergies or adverse reactions. Medications This patient has no known medications. Procedures This patient has no known procedures. Encounters Start End Encounter Admission Attending Care Care Encounter Source Date/Time Date/Time Type Type Clinicians Facility Department ID 2020-08-02 2020-08-02 Telephone Ana Laura Viveros [id number] 00:00:00 00:00:00 Lew Alanis [id number] Rajani [id number] Profleo [id number] [facility] [address] Building Results This patient has no known results.
--- OUTSIDE RECORDS SUMMARY | 2020-10-02 13:50 | XMS REPORT | Summary of Care ---
:2000 Author Organization [facility] - [facility] Address [address] [place] [address] Care Team Providers Name Role Phone Pcp, Does Not Have A Primary Care Provider Encounter Details Date Type Department Care Team Description 08/01/2020 Orders Only [facility] Doctor Unassigned, No [address] [facility] [place] [address] [address] [id number] Allergies Active Allergy Reactions Severity Noted Date Comments Undecylenic Ac-Zinc Undecylena Hives 12/01/2015 documented as of this encounter (statuses as of 08/01/2020) Medications Medication Sig Dispensed Refills Start Date End Date Status ferrous sulfate (IRON) Take 325 mg by 0 Active 325 mg (65 mg iron) mouth 3 (three) tablet times daily with meals. miSOPROStol 200 mcg Take 1 tablet by 2 tablet 0 09/29/2018 Active tablet mouth SEE-INSTRUCTIONS. Take one tab the night before and one tab the morning of procedure ondansetron 4 mg Take 1 tablet by 12 tablet 0 04/20/2019 Active disintegrating mouth every 8 tabletIndications: (eight) hours as Nausea and vomiting in needed for Nausea adult patient, Chest and Vomiting pain in adult, Adverse (N/V). effect of nicotinic acid, initial encounter documented as of this encounter (statuses as of 08/01/2020) Active Problems Problem Noted Date 39 weeks gestation of 08/21/2018 Liveborn , of thakkar , born in [facility] by vaginal 08/21/2018 delivery Obesity (BMI 30-39.9) 08/15/2018 Anemia of in third trimester 07/23/2018 Gastroesophageal reflux disease, esophagitis presence not specified 07/14/2018 Family history of Down syndrome 01/23/2018 documented as of this encounter (statuses as of 08/01/2020) Resolved Problems Problem Noted Date Resolved Date Cervical shortening 08/21/2018 08/21/2018 35 weeks gestation of 07/23/2018 08/21/20 18 uterine contractions, antepartum, third trimester 08/21/2018 Constipation, unspecified constipation type 02/20/2018 08/21/2018 Nausea and vomiting during prior to 22 weeks 01/2307/30/2018 gestation Nausea and vomiting during 01/09/2018 Nausea and vomiting in 01/08/2018 018 with inconclusive viability 01/08/2018 07/30/2018 Hypokalemia 01/08/2018 07/30/2018 Uses oral contraception 12/23/2015 01/08/2018 documented as of this encounter (statuses as of 08/01/2020) Immunizations Name Administration Dates Next Due Influenza Virus Vaccine Quad .5 mL IM 6+ MO 08/07/2018 08/07/2019 MMR 08/22/2018 TDAP 06/18/2018 documented as of this encounter Social History Tobacco Use Types Packs/Day Years Used Date Never Smoker Smokeless Tobacco: Never Used Alcohol Use Drinks/Week oz/Week Comments No 0 Standard drinks or equivalent 0.0 occasional with parental consent Sex Assigned at Date Recorded Not on file documented as of this encounter Last Filed Vital Signs Not on filedocumented in this encounter Plan of Treatment Health Maintenance Due Date Last Done Comments VARICELLA VACCINES (1 of 2 - 02/20/2001 2-dose childhood series) MENINGOCOCCAL B VACCINES (1 of 02/20/2010 2 - Risk Bexsero 2-dose series) HPV VACCINES (1 - 2-dose 02/20/2011 series) Depression Screening 2012 WELL CARE VISIT: 12-21 YEARS 01/17/2018 01/17/2017, (yearly) 12/01/2015 CHLAMYDIA SCREENING 07/28/2019 07/28/2018, 07/23/2018, 01/17/2017 INFLUENZA VACCINE (#1) 2020 08/07/2018 DTaP,Tdap,and Td Vaccines (2 - 06/18/2028 06/18/2018 Td) MENINGOCOCCAL VACCINE Aged Out No longer eligible based on patient's age to complete this to pic PNEUMOCOCCAL 0-64 YEARS Aged Out No longe r eligible based COMBINED SERIES on patient's age to complete this to pic documented as of this encounter Procedures Procedure Name Priority Date/Time Associated Diagnosis Comme nts ASSIGNMENT OF BENEFITS Routine 08/01/2020 8:10 AM CDT documented in this encounter Results Not on filedocumented in this encounter Insurance Payer Benefit Plan / Subscriber ID Effective Dates Phone Addre ss Type Group BCBS OF BL[employer] [id number] 2020-[place]ase [phone] [address] [facility] [id number] [place] [address] documented as of this encounter Advance Directives Name Relationship Healthcare Agent Communication Relationship Abbi Lopez Mother Health Care Agent
--- OUTSIDE RECORDS SUMMARY | 2020-10-02 13:50 | XMS REPORT | Summary of Care ---
:2000 Author Organization [facility] Address [address] [place] [address] Care Team Providers Name Role Phone Pcp, Does Not Have A Primary Care Provider Reason for Visit Reason Comments LAB Encounter Details Date Type Department Care Team Description 08/01/2020 House Repairer Visit [facility] Ana Laura Viveros MD [address] [facility] [address] [place] [address] Screen for STD (sexually transmitted dis ease); Professional Office 2, [facility] Lab Breast tenderness; Building Phlebotomy Nausea; Lab Patient requested diagnostic testing Professional Office Building [address] [facility] , [address] [place] [address] Allergies Active Allergy Reactions Severity Noted Date Comments Undecylenic Ac-Zinc Undecylena Hives 12/01/2015 documented as of this encounter (statuses as of 08/01/2020) Medications Medication Sig Dispensed Refills Start Date End Date Status ferrous sulfate (IRON) Take 325 mg by 0 Active 325 mg (65 mg iron) mouth 3 (three) tablet times daily with meals. ondansetron 4 mg Take 1 tablet by 12 tablet 0 04/20/2019 Active disintegrating mouth every 8 tabletIndications: (eight) hours as Nausea and vomiting in needed for Nausea adult patient, Chest and Vomiting pain in adult, Adverse (N/V). effect of nicotinic acid, initial encounter vit Take by mouth. 0 A ctive calc,iron,folic ( VITAMIN ORAL) documented as of this encounter (statuses as of 08/01/2020) Active Problems Problem Noted Date 39 weeks gestation of 08/21/2018 Liveborn infant, of thakkar , born in [facility] by vaginal 08/21/2018 delivery Obesity (BMI [...] Never Used Alcohol Use Drinks/Week oz/Week Comments Not Currently 0 Standard drinks or equivalent occasional with parental consent Sex Assigned at Date Recorded Not on file COVID-19 Exposure Response Date Recorded In the last month, have you been in contact with No / Unsure 08/01/2020 8:12 AM CDT someone who was confirmed or suspected to have Coronavirus / COVID-19? documented as of this encounter Last Filed Vital Signs Not on filedocumented in this encounter Nursing Notes Venice Sloan - 08/01/2020 9:00 AM CDT Venipuncture collection performed by clean technique on the left anticubitus. Total of 1 attempts were made. Slight pressure and a bandage/dressing were applied to the site(s). The patient experienced no complications. The following specimens were processed according to instructions and sent to [facility] laboratories per lab order on 08/01/20: LT BLUE SST 3 RED 1 LAV 1 PPT DK GREEN (LiHep) DK GREEN (SodH) MOORE DK BLUE (K2) DK BLUE (S) ACD Blood Culture NIPT/NTD documented in this encounter Plan of Treatment Health [...] to pic documented as of this encounter Results Not on filedocumented in this encounter Visit Diagnoses Diagnosis Screen for STD (sexually transmitted dis ease) Screening examination for venereal disea se Breast tenderness Mastodynia Nausea Nausea alone Patient requested diagnostic testing Other specified general medical examinat ion documented in this encounter Insurance Payer Benefit Plan / Subscriber ID Effective Dates Phone Addre ss Type Group BCBS OF BLUE [employer]ENTIALS [id number] 2020-[place]ase [phone] [address] [facility] [address] [place] [address] documented as of this encounter Advance Directives Name Relationship Healthcare Agent Communication Relationship Abbi John Mother Health Care Agent
--- OUTSIDE RECORDS SUMMARY | 2020-10-02 13:50 | XMS REPORT | Summary of Care ---
:2000 Author Organization [facility] Address [address] [place] [address] Care Team Providers Name Role Phone Pcp, Does Not Have A Primary Care Provider Reason for Visit Reason Comments STD Screen Nausea SPOTTING 2-3 days last week Encounter Details Date Type Department Care Team Description 08/01/2020 Initial [facility] Women's ViverosAna Laura am, MD Breast tenderness (Primary Dx); Visit Healthcare- [address] [place] [address] Screen for STD (sexually transmitted disease); Annabelle ADORNO Nausea; [address] [facility] [address] requested [address] testing [address], [address] [place] [phone] Allergies Active Allergy Reactions Severity Noted Date Comments Undecylenic Ac-Zinc Undecylena Hives 12/01/2015 documented as of this encounter (statuses as of 08/01/2020) Medications Medication Sig Dispensed Refills Start Date End Date Status ferrous sulfate Take 325 mg by 0 Active (IRON) 325 mg (65 mouth 3 mg iron) tablet (three) times daily with meals. ondansetron 4 mg Take 1 tablet 12 tablet 0 04/20/2019 Active disintegrating by mouth every tabletIndications: 8 (eight) Nausea and vomiting hours as in adult patient, needed for Chest pain in Nausea and adult, Adverse Vomiting effect of nicotinic (N/V). acid, initial encounter vit Take by 0 Active calc,iron,folic mouth. ( VITAMIN ORAL) miSOPROStol 200 mcg Take 1 tablet 2 tablet 0 09/29/201808/01 Discontinued tablet by mouth 20 (Therapy SEE-INSTRUCTIO compl eted) NS. Take one tab the night before and one tab the morning of procedure documented as of this encounter (statuses as of 08/01/2020) Active Problems Problem Noted Date 39 weeks gestation of 08/21/2018 Liveborn , of thakkar , born in [facility] by vaginal 08/21/2018 delivery Obesity (BMI 30-39.9) [...] of this encounter Last Filed Vital Signs Vital Sign Reading Time Taken Comments Blood Pressure 126/78 08/01/2020 8:31 AM CDT Pulse 105 08/01/2020 8:31 AM CDT Temperature 37.1 C (98.8 F) 08/01/2020 8:31 AM CDT Respiratory Rate 18 08/01/2020 8:31 AM CDT Oxygen Saturation - - Inhaled Oxygen Concentration - - Weight 60.1 kg (132 lb 6.4 oz) 08/01/2020 8:31 AM CDT Height 167.6 cm (5' 6") 08/01/2020 8:31 AM CDT Body Mass Index 21.37 08/01/2020 8:31 AM CDT documented in this encounter Progress Notes Ana Laura Viveros MD - 08/01/2020 8:00 AM CDT Chief complaint: Chief Complaint Patient presents with STD Screen Nausea SPOTTING 2-3 days last week HPI Dafne Munguia is a 20 year old female . Patient is here for test and STD testing. Denies symptoms. LMP was 07/06/2020, given her 3 5/7 weeks. Patient reports having normal menstrual cycles monthly except for this month, she has vaginal spotting for about 2-3 days last week with nausea and breast tenderness. Patient reports has started taking prenatals. Histories OB History Para Term AB Living 2 1 1 0 1 1 SAB TAB Ectopic Multiple Live Births 0 0 0 0 1 # Outcome Date GA Lbr Eleazar/2nd Weight Sex Delivery Anes PTL Lv 2 AB 12/28/19 1 Term 08/21/18 39w0d 7 lb 9 oz (3.43 kg) M VAGINAL EPI SO Past Medical History: Diagnosis Date Anemia of in third trimester 07/23/2018 Anxiety situational in the past two years Family History Problem Relation Age of Onset Hypertension Mother Asthma Mother Arthritis Mother Asthma Sister Asthma Brother Diabetes Maternal Grandmother Hypertension Maternal Grandmother Diabetes Maternal Grandfather Hypertension Maternal Grandfather High cholesterol Maternal Grandfather Diabetes Paternal Grandmother Heart Paternal Grandmother Arthritis Paternal Grandmother defects NoFHx Breast Cancer NoFHx Colon Cancer NoFHx Ovarian Cancer NoFHx Uterine Cancer NoFHx Cancer NoFHx Depression NoFHx Genetic NoFHx Mental retardation NoFHx Neurological NoFHx Osteoporosis NoFHx Psychiatry NoFHx Family Status Relation Name Status Mo Alive Fa Alive Sis (Not Specified) Bro (Not Specified) MGMo (Not Specified) MGFa (Not Specified) PGMo (Not Specified) NoFHx (Not Specified) Past Surgical History: Procedure Laterality Date ABDOMEN SURGERY PROC UNLISTED APPENDECTOMY 04/2020 FRACTURE SURGERY Left Forearm HERNIA REPAIR @ age 2 UMBILICAL HERNIORRHAPHY @ age 2 Social History Socioeconomic History Marital status: Single Spouse name: Not on file Number of children: Not on file Years of education: Not on file Highest education level: Not on file Occupational History Occupation: [employer] Student Comment: [employer] Social Needs Financial resource strain: Not on file Food insecurity Worry: Not on file Inability: Not on file Transportation needs Medical: Not on file Non-medical: Not on file Tobacco Use Smoking status: Never Smoker Smokeless tobacco: Never Used Substance and Sexual Activity Alcohol use: Not Currently Comment: occasional with parental consent Drug use: Not Currently Types: Marijuana Comment: Last THC consumption over a year Sexual activity: Yes Partners: Male control/protection: None Lifestyle Physical activity Days per week: Not on file Minutes per session: Not on file Stress: Not on file Relationships Social connections Talks on phone: Not on file Gets together: Not on file Attends restoration service: Not on file Active member of club or organization: Not on file Attends meetings of clubs or organizations: Not on file Relationship status: Not on file Intimate partner violence Fear of current or ex partner: Not on file Emotionally abused: Not on file Physically abused: Not on file Forced sexual activity: Not on file Other Topics Concern Service Not Asked Blood Transfusions Not Asked Caffeine Concern Not Asked Occupational Exposure Not Asked Hobby Hazards Not Asked Sleep Concern Not Asked Stress Concern Not Asked Weight Concern Not Asked Special Diet Not Asked Back Care Not Asked Exercise Not Asked Bike Helmet Not Asked Seat Belt Yes Self-Exams Yes Comment: Breast Self Awarness discussed Social History Narrative Denies any physical or domestic abuse within the home Lives with her Fiance' Anglican Preference: Latter-Day Social History Substance and Sexual Activity Sexual Activity Yes Partners: Male control/protection: None Labs No new labs Radiology No new radiology. Allergies Dafne is allergic to antifungal [undecylenic ac-zinc undecylena]. Medications Dafne has a current medication list which includes the following prescription(s): vit calc,iron,folic, ondansetron, and ferrous sulfate. Review of Systems Constitutional: Negative for chills, fatigue and fever. HENT: Negative for congestion, rhinorrhea, sneezing and sore throat. Respiratory: Negative for cough, chest tightness, shortness of breath and wheezing. Breasts: Negative for discharge, mass, pain and unequal size. Tenderness Cardiovascular: Negative for chest pain and palpitations. Gastrointestinal: Positive for nausea. Negative for abdominal distention, abdominal pain, anal bleeding, blood in stool, constipation, diarrhea and vomiting. Genitourinary: Negative for dysuria, urgency, frequency, vaginal bleeding and vaginal discharge. Musculoskeletal: Negative for gait problem. Skin: Negative for rash. Neurological: Negative for syncope, light-headedness and headaches. Psychiatric/Behavioral: Negative for dysphoric mood, self-injury and suicidal ideas. Hematological: Negative for cold intolerance and heat intolerance. Does not bruise/bleed easily. Endocrine: Negative for cold intolerance and heat intolerance. BP 126/78 (BP Location: Left arm, Patient Position: Sitting, BP CUFF SIZE: Adult Medium) | Pulse 105 | Temp 37.1 C (98.8 F) (Oral) | Resp 18 | Ht 5' 6" (1.676 m) | Wt 132 lb 6.4 oz (60.1 kg) | LMP 07/06/2020 (Exact Date) | No | BMI 21.37 kg/m Pregravid BMI: Could not be calculated Physical Exam Vitals reviewed. Constitutional: She is oriented to person, place, and time. Her body habitus is normal. Cardiovascular: Regular rate and rhythm. Pulmonary/Chest: Normal inspiratory effort. Neuro/Psychiatric: She has a normal mood and affect. She is oriented to person, place, and time. Assessment/Plan Breast tenderness (primary encounter diagnosis) Plan: HCG, QUANTITATIVE, Screen for STD (sexually transmitted disease) Plan: ADC / [facility] - DRUG SCREEN TRIAGE, ADC OR [facility] ONLY - RPR, GC & CHLAMYDIA AMPLIFIED ASSAY, TRICHOMONAS AMPLIFIED ASSAY, HEPATITIS B SURFACE ANTIGEN, HCV ANTIBODY, POCT TEST, POCT URINALYSIS W/O SPECIFIC GRAVITY, WORKUP, BLOOD BANK, HIV 1/2 AG-AB WITH REFLEX, HSV 1 AND 2 GLYCOPROTEIN G IGG Nausea Plan: POCT TEST, HCG, QUANTITATIVE, Patient requested diagnostic testing Plan: HCG, QUANTITATIVE, . If Beta-HCG is negative and if patient does not have a period, RTC for further evaluation. This visit did not involve counseling and coordination that comprised more than 50% of the visit time. Scribe's Attestation I, Drew Mcdonnell , am scribing for, and in the presence of, Ana Laura Viveros MD who performed the services described here-in. Drew Mcdonnell, August 01, 2020, 8:31 AM Physician's Attestation I have seen and examined the patient and agreed with the note above Ana Laura Viveros MD 08/01/2020 8:48 AM documented in this encounter Plan of Treatment Name Type Priority Associated Diagnoses Order S chedule ADC / [facility] - DRUG SCREEN LAB Routine Screen for STD (s exually Ordered: 08/01/2020 TRIAGE transmitted disease) ADC OR [facility] ONLY - RPR LAB Routine Screen for STD (sexually Expected: 08/01/2020, transmitted disease) Expires : 10/31/2020 GC & CHLAMYDIA AMPLIFIED LAB Routine Screen for STD ( sexually Ordered: 08/01/2020 ASSAY transmitted disease) TRICHOMONAS AMPLIFIED LAB Routine Screen for STD (sex ually Ordered: 08/01/2020 ASSAY transmitted disease) HEPATITIS B SURFACE LAB Routine Screen for STD (sexua lly Expected: 08/01/2020, ANTIGEN transmitted disease) Expires : 10/31/2020 HCV ANTIBODY LAB Routine Screen for STD (sexually Exp ected: 08/01/2020, transmitted disease) Expires : 10/31/2020 WORKUP, BLOOD LAB Routine Screen for STD (se xually Expected: 08/01/2020, BANK transmitted disease) Expires : 10/31/2020 HIV 1/2 AG-AB WITH REFLEX LAB Routine Screen for STD (sexually Expected: 08/01/2020, transmitted disease) Expires : 08/01/2021 HSV 1 AND 2 GLYCOPROTEIN G LAB Routine Screen for STD (sexually Expected: 08/01/2020, IGG transmitted disease) Expires : 08/01/2021 HCG, QUANTITATIVE, LAB Routine Breast tender ness Expected: 08/01/2020, Nausea Expires: 08/01/2021 Patient requested diagnostic testing Health Maintenance Due Date Last Done Comments [...] Name Priority Date/Time Associated Diagnosis Comme nts POCT URINALYSIS W/O Routine 08/01/2020 Screen for STD Result s for this SPECIFIC GRAVITY (sexually transmitted pr ocedure are in the disease) results section . POCT TEST Routine 08/01/2020 Screen for STD Result s for this (sexually transmitted proced ure are in the disease) results section. Nausea documented in this encounter Results POCT URINALYSIS W/O SPECIFIC GRAVITY (08/01/2020) Pathologist Sig nature POCT PH U 6.5 5 - 8 mg/dl POCT U LEUK EST neg Negative - Negative POCT U NIT neg Negative - Negative POCT U PROT neg Negative - Negative POCT U GLU neg Negative - Negative POCT U KETONE trace Negative - Negative POCT U BLD neg Negative - Negative Specimen Urine - URINE, CLEAN CATCH POCT TEST (08/01/2020) Pathologist Sig nature POCT PREG Negative On board controls acceptable Yes with C Line POCT PREG LOT # POCT PREG TEST DATE Specimen Urine - URINE, CLEAN CATCH documented in this encounter Visit Diagnoses Diagnosis Breast tenderness - Primary Mastodynia Screen for STD (sexually transmitted dis ease) Screening examination for venereal disea se Nausea Nausea alone Patient requested diagnostic testing Other specified general medical examinat ion documented in this encounter Insurance Payer Benefit Plan / Subscriber ID Effective Dates Phone Addre ss Type Group BCBS OF [employer] [id number] 2020-[place] [phone] [address] [place] [id number] [place] [address] documented as of this encounter Advance Directives Name Relationship Healthcare Agent Communication Relationship Abbi Lopez Mother Health Care Agent
--- OUTSIDE RECORDS SUMMARY | 2020-10-02 13:50 | XMS REPORT | Summary of Care ---
:2000 Author Organization [facility] Address [address] [place] [address] Care Team Providers Name Role Phone Pcp, Does Not Have A Primary Care Provider Reason for Visit Reason Comments Results Encounter Details Date Type Department Care Team Description 08/01/2020 Telephone [facility] Women's ViverosAna Laura MD Results Healthcare- [address] [address] [address] [place] [address] [place] [address] [phone] Allergies Active Allergy Reactions Severity Noted Date [...] Liveborn infant, of thakkar , [facility] by vaginal 08/21/2018 delivery Obesity (BMI [...] Signs Not on filedocumented in this encounter Miscellaneous Notes Telephone Encounter - Aarti Jennings RN - 08/01/2020 5:04 PM CDTSee result note Aarti Jennings RN 08/01/2020 5:04 PM Telephone Encounter - Krystyna Meza - 08/01/2020 2:24 PM CDTPatient is calling and is requesting to speak to the nurse in regards to her lab results, please call patient back in regards to this encounter. documented in this encounter Plan of Treatment [...] ss Type Group BCBS OF BLUE ESSENTIALS [id number] 2020-[place]ase [phone] [address] [address] [id number] [place] [address] documented as of this encounter Advance Directives Name Relationship Healthcare Agent Communication Relationship Abbi John Mother Health Care Agent
--- OUTSIDE RECORDS SUMMARY | 2020-10-02 13:51 | XMS REPORT | Summary of Care ---
:2000 Author Organization [facility] Address [address] [place] [address] Care Team Providers Name Role Phone Pcp, Does Not Have A Primary Care Provider Reason for Visit Reason Comments STD Screen Nausea SPOTTING 2-3 days last week Encounter Details Date Type Department Care Team Description 08/01/2020 Initial [facility] Women's ViverosAna Laura am, MD Breast tenderness (Primary Dx); Visit Healthcare- [address] [place] [address] Screen for STD (sexually transmitted disease); Annabelle ADORNO Nausea; [address] [facility] Kris [address], [address] [place] [phone] Allergies Active Allergy Reactions Severity Noted Date Comments Undecylenic Ac-Zinc Undecylena Hives 12/01/2015 documented as of this encounter (statuses as of 08/02/2020) Medications Medication Sig Dispensed Refills Start Date [...] as of this encounter (statuses as of 08/02/2020) Active Problems Problem Noted Date 39 weeks gestation of 08/21/2018 Liveborn , of thakkar , born in [facility] by vaginal 08/21/2018 delivery Obesity (BMI 30-39.9) 08/15/2018 Anemia of in third trimester 07/23/2018 Gastroesophageal reflux disease, esophagitis presence not specified 07/14/2018 Family history of Down syndrome 01/23/2018 documented as of this encounter (statuses as of 08/02/2020) Resolved Problems Problem Noted Date Resolved Date [...] as of this encounter (statuses as of 08/02/2020) Immunizations Name Administration Dates Next Due Influenza [...] level: Not on file 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 Allergies Dafen is allergic to antifungal [undecylenic ac-zinc undecylena]. [...] STD (sexually transmitted disease) Plan: ADC / [facility] - DRUG SCREEN TRIAGE, ADC OR [facility] ONLY - RPR, GC & CHLAMYDIA AMPLIFIED [...] 08/01/2020 8:48 AM documented in this encounter Miscellaneous Notes Addendum Note - Teresa Humphreys MA - 08/01/2020 8:00 AM CDT Addended by: TERESA HUMPHREYS on: 08/02/2020 09:52 AM Modules accepted: Orders ddendum Note - Jeffery Barnard - 08/01/2020 8:00 AM CDT Addended by: JEFFERY BARNARD on: 08/02/2020 09:02 AM Modules accepted: Orders documented in this encounter Plan of Treatment Name Type Priority Associated Diagnoses Date/Ti me GC & CHLAMYDIA AMPLIFIED LAB Routine Screen for STD ( sexually 08/01/2020 8:46 AM ASSAY transmitted disease) CDT TRICHOMONAS AMPLIFIED LAB Routine Screen for STD (sex ually 08/01/2020 8:46 AM ASSAY transmitted disease) CDT HSV 1 AND 2 GLYCOPROTEIN LAB Routine Screen for STD ( sexually 08/01/2020 9:05 AM G IGG transmitted disease) CDT Name Type Priority Associated Diagnoses Order S chedule HSV 1 AND 2 GLYCOPROTEIN G LAB Routine Screen for STD (sexually Expected: 08/01/2020, IGG transmitted disease) Expires : 08/01/2021 URINE DRUG (LCMSMS) - LAB Routine Nausea Expect ed: 08/02/2020, CANNABINOID Expires: 2020 (MARIJUANA/THC) PANEL Health Maintenance Due Date Last Done Comments [...] Name Priority Date/Time Associated Diagnosis Comme nts ADC / LCC - DRUG Routine 08/01/2020 8:46 Screen for STD Resul ts for this SCREEN TRIAGE AM CDT (sexually procedure are in transmitted disease) the res ults section. POCT URINALYSIS W/O Routine 08/01/2020 Screen for STD Result s for this SPECIFIC GRAVITY (sexually procedure a re in transmitted disease) the res ults section. POCT TEST Routine 08/01/2020 Screen for STD Result s for this (sexually procedure are i n transmitted dise ase) the results Nausea section. documented in this encounter Results HCG, QUANTITATIVE, (08/01/2020 9:05 AM CDT) Pathologist Sig nature BETA HCG <2.39 Non- female [facility] HOSP ITAL and male patients: <5 LABORATORY mIU/mL Specimen Blood Narrative Performed At [facility] LABORATORY Gestational Age Range (mIU/mL) 1-10 Weeks 4 4-400303 11-15 Weeks 29619-028334 16-22 Weeks 7480-525717 23-40 Weeks 1531-770149 Biotin has been reported to cause a negative bias, interpret results relative to patient's use of biotin. Performing Organization Address City/State/Zipcode Phone Number [facility] CLIA: [id number] [place], [place] [id number] LABORATORY [address] HIV 1/2 AG-AB WITH REFLEX (08/01/2020 9:05 AM CDT) Pathologist Sig [facility] HIV 1/2 Ag-Ab with Negative Negative [facility] HOSPITAL LABORATORY HIV Semi-quantitative 0.10 [facility] LABORATORY Specimen Blood Narrative Performed At Non-reactive for HIV-1 antigen and HIV-1/HIV-2 [facility] LABORATORY antibodies. No laboratory evidence of HIV infection. Repeat in 2-4 weeks if acute HIV infection is suspected. Performing Organization Address City/State/Zipcode Phone Number [facility] CLIA: [id number] [place] [address] [place] [address] HCV ANTIBODY (08/01/2020 9:05 AM CDT) Pathologist Sig nature HCV Ab Negative [facility] LABORATORY SERVICES HCV Semi-Quantitative 0.01 [facility] LABORATORY SERVICES Specimen Blood Performing Organization Address City/[facility]/Zipcode Phone Number [facility] LABORATORY SERVICES CLIA: [id number] [place], [place] [address] [address] [place] [address] HEPATITIS B SURFACE ANTIGEN (08/01/2020 9:05 AM CDT) Pathologist Sig [facility] HBsAg Negative Negative [facility] LABORATORY SERVICES HBsAg 0.12 [facility] LABORATORY Semi-Quantitative SERVICES Specimen Blood Performing Organization Address City/[facility]/Zipcode Phone Number [facility] LABORATORY SERVICES CLIA: [id number] [place], [place] [address]185 [address] [place] [address] ADC OR [facility] ONLY - RPR (08/01/2020 9:05 AM CDT) Pathologist Sig [facility] RPR (Qualitative) Nonreactive Nonreactive [facility] LABORATORY Specimen Blood Performing Organization Address City/State/Zipcode Phone Number [facility] CLIA: [id number] [place], [place] [address] LABORATORY [address] [place] [address] WORKUP, BLOOD BANK (08/01/2020 9:03 AM CDT) Pathologist Sig [facility] ABO & RH O POSITIVE LAB Comment: Performed at [facility] Laboratory Services - [facility] Blood Bank [address] [place] [address], [place], [place] [address] Toll Free: [phone] CLIA No. [id number] IAT Negative LAB Comment: Performed at [facility] Laboratory Services - [facility] Blood Bank [address] [place] [address] Toll Free: [phone] CLIA No. [id number] Specimen Blood - VENOUS Performing Organization Address City/[facility] Phone Number D LAB ADC / LCC - DRUG SCREEN TRIAGE (08/01/2020 8:46 AM CDT) BENZO U Negative Negative [facility] LABORAT[facility] KARSTEN U Negative Negative [facility] AMPHET Negative Negative [facility] LABOR[facility] THC Presumptive Positive Negative [facility] (A)Comment: HOSPITAL Confirmation of LABORATORY Presumptive Positive THC result requires physician order. METHADONE Negative Negative [facility] LABORATORY Meth U Negative Negative [facility] LAB[facility] OPIATES Negative Negative [facility] Cocaine Metabolite Negative Negative [facility] PROPOXY Negative Negative [facility] Tric U Negative Negative [facility] PCP Negative Negative [facility] OXYCOD Negative Negative [facility] LABOR[facility] Specimen Urine - URINE, CLEAN CATCH Narrative Performed At Urine Drug Cutoff Ranges [facility] LABORATORY Benzodiazepines: 150 ng/mL Barbiturates: 200 ng/mL Amphetamine: 500 ng/mL Cannabinoids: 50 ng/mL Methadone: 200 ng/mL Methamphetamine: 500 ng/mL Opiates: 100 ng/mL or 2000 ng/mL Cocaine: 150 ng/mL Propoxyphene: 300 ng/mL Tricyclics: 300 ng/mL Oxycodone: 100 ng/mL PCP: 25 ng/mL The results are to be used only for medical (i.e., treatment) purposes. Unconfirmed screening results must not be used for non-medical purposes (e.g., employment testing, legal testing). Performing Organization Address [facility] Phone Number [facility] CLIA: [id number] [place] [address] POCT URINALYSIS W/O SPECIFIC GRAVITY (08/01/2020) Pathologist [...] ss Type Group BCBS OF BLUE ESSENTIALS [id number] 2020-[facility] [phone] [address] [place] [address] documented as of this encounter Advance Directives Name Relationship Healthcare Agent Communication Relationship Abbi Lopez Mother Health Care Agent
--- OUTSIDE RECORDS SUMMARY | 2020-10-02 13:51 | XMS REPORT | Summary of Care ---
:2000 Author Organization [facility] Address [address] [place] [address] Care Team Providers Name Role Phone Pcp, Does Not Have A Primary Care Provider Reason for Visit Reason Comments New Medication Encounter Details Date Type Department Care Team Description 08/02/2020 Case Management [facility] Women's Sirena Baptiste N ew Medication Healthcare- [facility] [address] [place] [address], [address] [place] [address] [address] [address] [place] [address] [phone] Allergies Active Allergy Reactions Severity Noted Date [...] as Nausea and vomiting in needed for adult patient, Chest Nausea and pain in adult, Adverse Vomiting (N/V). effect of nicotinic acid, initial encounter vit Take by mouth. 0 A ctive calc,iron,folic ( VITAMIN ORAL) azithromycin 500 mg Take 2 tablets 2 tablet 0 08/02/202007/07 Active tabletIndications: by mouth daily Chlamydia trachomatis for 1 day. infection of lower genitourinary sites documented as of this encounter (statuses as of 08/02/2020) Active Problems Problem Noted Date 39 weeks gestation of 08/21/2018 Liveborn infant, of thakkar , born in [facility] by vaginal 08/21/2018 delivery Obesity (BMI [...] filedocumented in this encounter Visit Diagnoses Diagnosis Chlamydia trachomatis infection of lower genitourinary sites - Primary documented in this encounter Insurance Payer Benefit Plan / Subscriber ID Effective Dates Phone Addre ss Type Group BCBS OF Skin Scan [id number] 2020-[facility] [phone] [address] [id number] [place] [address] documented as of this encounter Advance Directives Name Relationship Healthcare Agent Communication Relationship Abbi Lopez Mother Health Care Agent
--- OUTSIDE RECORDS SUMMARY | 2020-10-02 13:51 | XMS REPORT | Summary of Care ---
:2000 Author Organization [facility] Address [address] [place] [address] Care Team Providers Name Role Phone Pcp, Does Not Have A Primary Care Provider Reason for Visit Reason Comments Results Encounter Details Date Type Department Care Team Description 08/02/2020 Telephone [facility] Women's CasperAna Laura MD Results Healthcare- [address] [address] [address] [place] [address] [place] [address] [phone] Allergies Active Allergy Reactions Severity Noted Date [...] Liveborn , of thakkar , born in [facility] by vaginal 08/21/2018 delivery Obesity (BMI [...] this encounter Miscellaneous Notes Telephone Encounter - Jeffery Barnard - 08/02/2020 2:22 PM CDT Component Ref Range & Units 1d ago 2yr ago C. trachomatis Nucleic Acid Negative PositiveAbnormal Negative N. gonorrhoeae Nucleic Acid Negative Negative Negative Patient advised and aware Partner treatment called in for Hafsa Umana MARIANO [facility] Azithromycin 1 gram One dose as partner treatment No Refills Telephone Encounter - Gisela Larson - 08/02/2020 1:56 PM CDTPt states she received results on my chart but is also wanting to know if DR CASPER can give her enoughmedication for her partner also. elephone Encounter - Ally Vee - 08/02/2020 1:02 PM CDTPatient is calling back regarding her results and is requesting a call back as soon as possible. elephone Encounter - Aleida Mccoy - 08/02/2020 12:35 PM CDTPt returning call back in regards to results. documented in this encounter Plan of Treatment [...] ss Type Group BCBS OF BLUE ESSENTIALS [id number] 2020-[facility] [phone] [address] [facility] 7 [id number] [place] [address] documented as of this encounter Advance Directives Name Relationship Healthcare Agent Communication Relationship Abbi Lopez Mother Health Care Agent
--- OUTSIDE RECORDS SUMMARY | 2020-10-02 13:51 | XMS REPORT | Summary of Care ---
:2000 Author Organization [facility] Address [address] [place] [address] Care Team Providers Name Role Phone Pcp, Does Not Have A Primary Care Provider Reason for Visit Reason Comments STD Screen Nausea SPOTTING 2-3 days last week Encounter Details Date Type Department Care Team Description 08/01/2020 Initial [facility] Women's ViverosAna Laura am, MD Breast tenderness (Primary Dx); Visit Healthcare- [address] [place] [address] Screen for STD (sexually transmitted disease); Annabelle ADORNO Nausea; 146 [facility] [address] testing [address], [address] [place] [address] Allergies Active Allergy Reactions Severity Noted [...] Liveborn , of thakkar , born in [facility] by vaginal 08/21/2018 delivery Obesity (BMI [...] level: Not on file 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: [employer] Social Needs Financial resource strain: [...] file Gets together: Not on file Attends anabaptist service: Not on file Active member of [...] within the home Lives with her Fiance' Zoroastrian Preference: Buddhism Social History Substance and Sexual Activity Sexual [...] STD (sexually transmitted disease) Plan: ADC / [facility] - DRUG SCREEN TRIAGE, ADC OR [facility] ONLY - RPR, GC & [...] this encounter Miscellaneous Notes Addendum Note - Jeffery Barnard - 08/01/2020 8:00 [...] on patient's age to complete this to [facility] PNEUMOCOCCAL 0-64 YEARS Aged Out No longe [...] QUANTITATIVE, (08/01/2020 9:05 AM CDT) Pathologist Sig [facility] BETA HCG <2.39 Non- female [facility] ITAL and male patients: <5 LABORATORY mIU/mL Specimen Blood Narrative Performed At [facility] LABORATORY Gestational Age Range (mIU/mL) 1-10 Weeks 4 4-620629 11-15 Weeks [address]-753859 16-22 Weeks 7480-157191 23-40 Weeks 1531-084583 Biotin has been reported to cause a negative bias, interpret results relative to patient's use of biotin. Performing Organization Address City/State/Zipcode Phone Number [facility] CLIA: [id number] [place] [address] HIV 1/2 AG-AB WITH REFLEX (08/01/2020 9:05 AM CDT) Pathologist Sig nature HIV 1/2 Ag-Ab with Negative Negative [facility] HOSPITAL LABORATORY HIV Semi-quantitative 0.10 [facility] LABORATORY Specimen Blood Narrative Performed At Non-reactive for HIV-1 antigen and HIV-1/HIV-2 [facility] LABORATORY antibodies. No laboratory evidence of HIV infection. Repeat in 2-4 weeks if acute HIV infection is suspected. Performing Organization Address [facility]/Zipcode Phone Number [facility] CLIA: [id number] [place] [address] [place] [address] HCV ANTIBODY (08/01/2020 9:05 AM CDT) Pathologist Sig nature HCV Ab Negative [facility] LABORATORY SERVICES HCV Semi-Quantitative 0.01 [facility] LABORATORY SERVICES Specimen Blood Performing Organization Address City/[facility] Phone Number [facility] LABORATORY SERVICES CLIA: [id number] [place] [address] [place] [address] HEPATITIS B SURFACE ANTIGEN (08/01/2020 9:05 AM CDT) Pathologist Sig nature HBsAg Negative Negative [facility] LABORATORY SERVICES HBsAg 0.12 [facility] LABORATORY Semi-Quantitative SERVICES Specimen Blood Performing Organization Address [facility] Phone Number [facility] LABORATORY SERVICES CLIA: [id number] [place] [address] [place] [address] ADC OR [facility] ONLY - RPR (08/01/2020 9:05 AM CDT) Pathologist Sig nature RPR (Qualitative) Nonreactive Nonreactive [facility] LABORATORY Specimen Blood Performing Organization Address [facility] Number [facility] CLIA: [id number] [place] [address] WORKUP, BLOOD BANK (08/01/2020 9:03 AM CDT) Pathologist Sig nature ABO & RH O POSITIVE LAB Comment: Performed at [facility] Laboratory Services - [facility] Blood Bank [address] [place] [address] Toll Free: [phone] CLIA No. [id number] IAT Negative LAB Comment: Performed at [facility] Laboratory Services - [facility] Blood Bank [address] [place] [address] Toll Free: [phone] CLIA No. [id number] Specimen Blood - VENOUS Performing Organization Address [facility] Phone Number [facility] LAB ADC / LCC - DRUG SCREEN TRIAGE (08/01/2020 8:46 AM CDT) BENZO U Negative Negative [facility] LABORATORY KARSTEN U Negative Negative [facility] LABORAT[facility] AMPHET Negative Negative [facility] LABORATORY THC Presumptive Positive Negative [facility] (A)Comment: HOSPITAL Confirmation of LABORATORY Presumptive Positive THC result requires physician order. METHADONE Negative Negative [facility] LABORATORY Meth U Negative Negative [facility] LABOR[facility] OPIATES Negative Negative [facility] LAB[facility] Cocaine Metabolite Negative Negative [facility] PROPOXY Negative Negative [facility] Tric U Negative Negative [facility] PCP Negative Negative [facility]OR[facility] OXYCOD Negative Negative [facility] LABORATORY Specimen Urine - URINE, CLEAN CATCH Narrative Performed At Urine Drug Cutoff Ranges [facility] LABORATORY Benzodiazepines: 150 ng/mL Barbiturates: 200 [...] employment testing, legal testing). Performing Organization Address City/State/Zipcode Phone Number [facility] CLIA: [id number] [place] [address] POCT URINALYSIS W/O [...] ss Type Group BCBS OF BLUE ESSENTIALS [id number] 2020-[facility] [phone] [address] [place] [address] [id number] [place] [address] documented as of this encounter Advance Directives Name Relationship Healthcare Agent Communication Relationship Abbi Lopez Mother Health Care Agent
--- OUTSIDE RECORDS SUMMARY | 2020-10-02 13:51 | XMS REPORT | Summary of Care ---
:2000 Author Organization [facility] Address [address] [place] [address] Care Team Providers Name Role Phone Pcp, Does Not Have A Primary Care Provider Reason for Visit Reason Comments Results Encounter Details Date Type Department Care Team Description 08/02/[address] [facility] [place] [facility] Women's CasperAna Laura MD Results Healthcare- [address] [address] [address] [place] [address] [place] [address] [phone] Allergies Active Allergy Reactions Severity Noted Date [...] Liveborn , of thakkar , born in [facility] by vaginal 08/21/2018 delivery Obesity (BMI 30-39.9) [...] in for Hafsa Umana MARIANO 2000 Pharm Jerry Avilaeny Azithromycin 1 gram One dose as partner treatment No Refills Patient states she will call back to schedule her 3 month ZBIGNIEW at her convenience. Telephone Encounter - Gisela Larson - 08/02/2020 [...] ss Type Group BCBS OF BLUE ESSENTIALS [id number] 2020-[facility]ase [phone] [address] [facility] 7 [phone] [place] [address] documented as of this encounter Advance Directives Name Relationship Healthcare Agent Communication Relationship Abbi Lopez Mother Health Care Agent
[2020-10-02 14:44] LABS: Absolute Lymphocytes (CBC) 2.2 K/uL (0.7-4.9); Basophils % 0.3 % (0-1.3); Hematocrit 41.1 % (36.0-45.0); Lymphocytes % 22.1 % (15.3-44.8); RBC Red Blood Cell Count 4.56 M/uL (3.86-4.86)
[2020-10-02 14:51] LABS: Urine Blood 3+ (NEG); Urine Glucose NEGATIVE (NEG); Urine Protein NEGATIVE (NEG)
[2020-10-02 14:59] LABS: BUN Blood Urea Nitrogen 6 mg/dL (7-18); Bicarbonate 25 mmol/L (21-32); Glucose Level 88 mg/dL (74-106); HCG, Quantitative 194 mIU/mL (1-3); Potassium 3.6 mmol/L (3.5-5.1); Sodium Level 143 mmol/L (136-145)
--- NOTE | 2020-10-02 15:42 | EDPHYS ---
Physician Documentation [facility] Name: Dafne Munguia Age: 20 yrs Sex: Female : 2000 Arrival Date: 10/02/2020 Time: 13:51 Bed 15 Private MD: ED Physician Valente Mccormack HPI: 10/02 14:10 This 20 yrs old Female presents to ER via Unassigned with complaints of kb Vaginal Bleeding - + Preg, Abdominal Cramping. 14:10 The patient presents to the emergency department with abdominal pain, of the suprapubic kb area, that started this morning, described as crampy, vaginal bleeding, that is light. course: care: first appt scheduled for tomorrow, Leakage of Fluid: none appreciated, Ultrasound: the patient has not had an ultrasound, Risk/complications: no obvious risks or complications are appreciated. Previous pregnancies: in previous pregnancies patient has had. Associated signs and symptoms: Pertinent positives: abdominal pain, vaginal bleeding, Pertinent negatives: chest pain, diarrhea, dysuria, fever, frequency, nausea, ruptured membranes, seizure, shortness of breath, vaginal discharge, vomiting. The patient has not experienced similar symptoms in the past. The patient has not recently seen a physician. 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 - Social history:: Smoking status: Patient denies any tobacco usage or history of. ROS: 14:10 Constitutional: Negative for fever, chills, and weight loss, Cardiovascular: Negative kb for chest pain, palpitations, and edema, Respiratory: Negative for shortness of breath, cough, wheezing, and pleuritic chest pain, Back: Negative for injury and pain, MS/Extremity: Negative for injury and deformity, Skin: Negative for injury, rash, and discoloration, Neuro: Negative for headache, weakness, numbness, tingling, and seizure. 14:10 Abdomen/GI: Positive for abdominal cramps. 14:10 : Positive for vaginal bleeding. Exam: 14:10 Constitutional: This is a well developed, well nourished patient who is awake, alert, kb and in no acute distress. Head/Face: Normocephalic, atraumatic. Chest/axilla: Normal chest wall appearance and motion. Nontender with no deformity. No lesions are appreciated. Cardiovascular: Regular rate and rhythm with a normal S1 and S2. No gallops, murmurs, or rubs. Normal PMI, no JVD. No pulse deficits. Respiratory: Lungs have equal breath sounds bilaterally, clear to auscultation and percussion. No rales, rhonchi or wheezes noted. No increased work of breathing, no retractions or nasal flaring. Abdomen/GI: Soft, non-tender, with normal bowel sounds. No distension or tympany. No guarding or rebound. No evidence of tenderness throughout. Skin: Warm, dry with normal turgor. Normal color with no rashes, no lesions, and no evidence of cellulitis. MS/ Extremity: Pulses equal, no cyanosis. Neurovascular intact. Full, normal range of motion. Neuro: Awake and alert, GCS 15, oriented to person, place, time, and situation. Cranial nerves II-XII grossly intact. Motor strength 5/5 in all extremities. Sensory grossly intact. Cerebellar exam normal. Normal gait. Vital Signs: 14:15 BP 145 / 86; Pulse 78; Resp 18 S; Temp 99.3(O); Pulse Ox 100% on R/A; Weight 68.04 kg ca1 (R); Height 5 ft. 5 in. (165.10 cm) (R); 15:10 BP 100 / 83; Pulse 88; Resp 18 S; Pulse Ox 100% on R/A; ca1 15:45 BP 110 / 79; Pulse 79; Resp 16 S; Pulse Ox 100% on R/A; ca1 14:15 Body Mass Index 24.96 (68.04 kg, 165.10 cm) ca1 MDM: 14:07 Patient medically screened. kb 14:11 Data reviewed: vital signs, nurses notes. Data interpreted: Pulse oximetry: on room air kb is 100 %. Interpretation: normal. 15:41 Counseling: I had a detailed discussion with the patient and/or guardian regarding: the kb historical points, exam findings, and any diagnostic results supporting the discharge/admit diagnosis, lab results, radiology results, the need for outpatient follow up, an OB/Gyne specialist, to return to the emergency department if symptoms worsen or persist or if there are any questions or concerns that arise at home. 10/02 14:07 Order name: Quantitative Hcg; Complete Time: 15:00 kb 10/02 14:07 Order name: Abo/rh Typing; Complete Time: 14:58 kb 10/02 14:07 Order name: Basic Metabolic Panel; Complete Time: 15:00 kb 10/02 14:07 Order name: CBC with Diff; Complete Time: 14:58 kb 10/02 14:38 Order name: Urine Microscopic Only kb 10/02 14:38 Order name: Urine Microscopic Only EDMS 10/02 14:07 Order name: Urine Test (obtain specimen); Complete Time: 14:34 kb 10/02 14:07 Order name: IV Saline Lock; Complete Time: 14:34 kb 10/02 14:07 Order name: Labs collected and sent; Complete Time: 14:34 kb 10/02 14:07 Order name: NPO; Complete Time: 14:34 kb 10/02 14:07 Order name: Urine Dipstick-Ancillary (obtain specimen); Complete Time: 14:34 kb 10/02 14:38 Order name: US Transvaginal Ob kb 10/02 14:44 Order name: Urine Dipstick--Ancillary (enter results); Complete Time: 14:58 eb 10/02 14:44 Order name: Urine --Ancillary (enter results); Complete Time: 14:58 eb Administered Medications: No medications were administered Disposition: 16:26 Co-signature as Attending Physician, Valente Mccormack MD. rn Disposition: 10/02/20 15:42 Discharged to Home. Impression: Threatened . - Condition is Stable. - Discharge Instructions: Vaginal Bleeding During , First Trimester, Threatened Miscarriage, [id number], Pelvic Rest. - Medication Reconciliation Form, Thank You Letter, Antibiotic Education, Prescription Opioid Use form. - Follow up: Emergency Department; When: As needed; Reason: Worsening of condition. Follow up: Private Physician; When: 2 - 3 days; Reason: Recheck today's complaints, Continuance of care, Re-evaluation by your physician. Signatures: Dispatcher [employer] CHELSIE Umanzor Valentina, TAXICAB DISPATCHER-C TAXICAB DISPATCHER-Ckb Valente Mccormack MD MD rn AcobHanna RN RN ca1 Corrections: (The following items were deleted from the chart) 15:51 15:42 10/02/2020 15:42 Discharged to Home. Impression: Threatened . Condition ca1 is Stable. Forms are Medication Reconciliation Form, Thank You Letter, Antibiotic Education, Prescription Opioid Use. Follow up: Emergency Department; When: As needed; Reason: Worsening of condition. Follow up: Private Physician; When: 2 - 3 days; Reason: Recheck today's complaints, Continuance of care, Re-evaluation by your physician. kb
--- NOTE | 2020-10-02 15:42 | ER ---
Nurse's Notes [facility] Name: Dafne Munguia Age: 20 yrs Sex: Female : 2000 Arrival Date: 10/02/2020 Time: 13:51 Bed 15 Private MD: Diagnosis: Threatened Presentation: 10/02 14:15 Chief complaint: Patient states: Spotting and cramping started this morning, has gotten ca1 worse. Coronavirus screen: Client denies travel out of the [place] in the last 14 days. At this time, the client does not indicate any symptoms associated with coronavirus-19. Ebola Screen: Patient negative for fever greater than or equal to 101.5 degrees Fahrenheit, and additional compatible Ebola Virus Disease symptoms Patient denies exposure to infectious person. Patient denies travel to an Ebola-affected area in the 21 days before illness onset. No symptoms or risks identified at this time. Initial Sepsis Screen: Does the patient meet any 2 criteria? No. Patient's initial sepsis screen is negative. Does the patient have a suspected source of infection? No. Patient's initial sepsis screen is negative. Risk Assessment: Do you want to hurt yourself or someone else? Patient reports no desire to harm self or others. Onset of symptoms was October 02, 2020. 14:15 Method Of Arrival: Ambulatory ca1 14:15 Acuity: [place] 3 ca1 Triage Assessment: 14:19 General: Appears in no apparent distress. comfortable, Behavior is calm, cooperative, ca1 appropriate for age. Pain: Complains of pain in suprapubic area. EENT: No signs and/or symptoms were reported regarding the EENT system. Neuro: Level of Consciousness is awake, alert, obeys commands, Oriented to person, place, time, situation. Cardiovascular: Heart tones S1 S2 present Capillary refill < 3 seconds Patient's skin is warm and dry. Respiratory: Airway is patent Respiratory effort is even, unlabored, Respiratory pattern is regular, symmetrical, Breath sounds are clear bilaterally. GI: Abdomen is round non-distended, Bowel sounds present X 4 quads. Abd is soft and non tender X 4 quads. : Reports vaginal bleeding that is spotty. Derm: Skin is intact, is healthy with good turgor, Skin is pink, warm \T\ dry. Musculoskeletal: Circulation, motion, and sensation intact. Capillary refill < 3 seconds. 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 - Social history:: Smoking status: Patient denies any tobacco usage or history of. Screenin:21 Abuse screen: Denies threats or abuse. Denies injuries from another. Nutritional ca1 screening: No deficits noted. Tuberculosis screening: No symptoms or risk factors identified. Fall Risk IV access (20 points). Assessment: 14:21 Reassessment: see triage notes. ca1 15:10 Reassessment: US at bedside. ca1 15:10 Reassessment: Patient appears in no apparent distress at this time. Patient and/or ca1 family updated on plan of care and expected duration. Pain level reassessed. Patient is alert, oriented x 3, equal unlabored respirations, skin warm/dry/pink. 15:45 Reassessment: Patient appears in no apparent distress at this time. Patient and/or ca1 family updated on plan of care and expected duration. Pain level reassessed. Patient is alert, oriented x 3, equal unlabored respirations, skin warm/dry/pink. Vital Signs: 14:15 BP 145 / 86; Pulse 78; Resp 18 S; Temp 99.3(O); Pulse Ox 100% on R/A; Weight 68.04 kg ca1 (R); Height 5 ft. 5 in. (165.10 cm) (R); 15:10 BP 100 / 83; Pulse 88; Resp 18 S; Pulse Ox 100% on R/A; ca1 15:45 BP 110 / 79; Pulse 79; Resp 16 S; Pulse Ox 100% on R/A; ca1 14:15 Body Mass Index 24.96 (68.04 kg, 165.10 cm) ca1 ED Course: 13:51 Patient arrived in ED. bg2 14:07 Valentina Umanzor FNP-C is PHCP. kb 14:07 Valente Mccormack MD is Attending Physician. kb 14:18 Hanna Williamson, RN is Primary Nurse. ca1 14:19 Triage completed. ca1 14:19 Arm band placed on right wrist. ca1 14:21 Patient has correct armband on for positive identification. Placed in gown. Bed in low ca1 position. Call light in reach. Side rails up X 1. Pulse ox on. NIBP on. Warm blanket given. 14:21 No provider procedures requiring assistance completed. ca1 14:31 Initial lab(s) drawn, by me, sent to lab. Inserted saline lock: 20 gauge in left ca1 antecubital area, using aseptic technique. Blood collected. 15:41 US Transvaginal Ob In Process Unspecified. EDMS 15:41 Ultrasound completed. Patient tolerated well. Notified SENSOR OPERATOR/PA valentina. sg3 15:51 IV discontinued, intact, bleeding controlled, No redness/swelling at site. Pressure ca1 dressing applied. Administered Medications: No medications were administered Outcome: 15:42 Discharge ordered by MD. kb 15:51 Discharged to home ambulatory, with significant other. ca1 15:51 Condition: stable 15:51 Discharge instructions given to patient, Instructed on discharge instructions, follow up and referral plans. Demonstrated understanding of instructions, follow-up care. 15:51 Patient left the ED. ca1 Signatures: Dispatcher [employer] EDMS Valentina Umanzor FNP-C FNP-Rosa Andrade 2 Lorena Kaur sg3 Hanna Williamson, RN RN ca1
--- NOTE | 2020-10-02 15:55 | RAD REPORT ---
EXAM DESCRIPTION: US - Transvaginal OB - 10/02/2020 3:41 pm CLINICAL HISTORY: Abd cramping, ;Vaginal bleeding COMPARISON: None FINDINGS: Retroflexed uterus shows no myometrial mass. Normal shaped very small intrauterine gestati onal sac is identified. No pole or yolk sac identifiable. Both ovaries are identified and viktoria l. No adnexal mass. Gestational sac measurements correspond to a 5 week 0 day age. No intrauterine hematoma or mass. IMPRESSION: A 5 week 0 day size fluid collection in the endometrial cavity is most likely a very ear ly IUP. No intrauterine hematoma or mass. No yolk sac or pole identifiable. No adnexal abnormalities.
[2020-10-02 16:32] LABS: Urine Bacteria <20 /HPF (<20); Urine RBC NONE SEEN /HPF (NONE SEEN)
[2020-10-02 18:51] VITALS: TEMP 99.3; O2SAT 100
[2020-10-02 18:53] VITALS: BP 110/79
== END 2020-10-02 15:51 | disposition home or self-care (01) ==
LOC: ER 13:47
DX: O20.0 Threatened abortion (principal); Z3A.01 Less than 8 weeks gestation of pregnancy
CPT/HCPCS: 36415; 76817; 80048; 81003; 81015; 81025; 84702; 85025; 86900; 86901; 99284

== ENCOUNTER 2021-01-23 00:34 | Emergency (ER) | payer BC ==
--- OUTSIDE RECORDS SUMMARY | 2021-01-23 00:38 | XMS REPORT | Continuity of Care Document ---
:2000 Author Organization [facility] t Address [address] [place] [address] Care Team Providers Name Role Phone Te Jain MD Attending Clinician Problems This patient has no known problems. Allergies, Adverse Reactions, Alerts This patient has no known allergies or adverse reactions. Medications This patient has no known medications. Procedures This patient has no known procedures. Encounters Start End Encounter Admission Attending Care Care Encounter Source Date/Time Date/Time Type Type Clinicians Facility Department ID 2020-12-21 2020-12-21 Case [facility] [id number] 00:00:00 00:00:00 Management Lottie Alanis [id number] [place] [id number] [facility] [phone] [address] 2020-12-16 2020-12-16 Office [facility] [id number] 11:14:06 12:17:33 Visit Lottie Alanis [id number] [place] [id number] [facility] [phone] [address] Building Results This patient has no known results.
[2021-01-23 01:11] LABS: Urine Blood NEGATIVE (NEG); Urine Glucose NEGATIVE (NEG); Urine Protein NEGATIVE (NEG); Urine Specific Gravity 1.025 (1.005-1.030)
[2021-01-23] MEDS ORDERED: ONDANSETRON 4 MG/2 ML VIAL ONE (01:17)
[2021-01-23] MEDS ORDERED: NA CHLORIDE 0.9% 1,000 ML ONE (01:17)
[2021-01-23 01:23] LABS: Absolute Lymphocytes (CBC) 3.2 K/uL (0.7-4.9); Basophils % 0.3 % (0-1.3); Hematocrit 41.7 % (36.0-45.0); Lymphocytes % 42.6 % (15.3-44.8); RBC Red Blood Cell Count 4.71 M/uL (3.86-4.86)
[2021-01-23 01:30] LABS: ALT/SGPT 34 U/L (12-78); AST/SGOT 20 U/L (15-37); Albumin 4.5 g/dL (3.4-5.0); Alkaline Phosphatase 86 U/L (45-117); BUN Blood Urea Nitrogen 17 mg/dL (7-18); Bicarbonate 26 mmol/L (21-32); Bilirubin Direct 0.1 mg/dL (0-0.2); Bilirubin Total 0.4 mg/dL (0.2-1.0); Glucose Level 85 mg/dL (74-106); Lipase 92 U/L (73-393); Potassium 3.9 mmol/L (3.5-5.1); Sodium Level 142 mmol/L (136-145)
[2021-01-23 01:36] LABS: Barbiturates NEGATIVE (NEGATIVE); Benzodiazepines NEGATIVE (NEGATIVE); Cocaine NEGATIVE (NEGATIVE); METHAMPHETAM NEGATIVE (NEGATIVE); Methadone NEGATIVE (NEGATIVE); Opiates NEGATIVE (NEGATIVE); Phencyclidine NEGATIVE (NEGATIVE); THC Cannibis POSITIVE (NEGATIVE)
--- NOTE | 2021-01-23 02:05 | ER ---
Nurse's Notes [facility] Name: Dafne Munguia Age: 20 yrs Sex: Female : 2000 Arrival Date: 01/23/2021 Time: 00:39 Bed 8 Private MD: Diagnosis: Nausea with vomiting, unspecified;Generalized abdominal pain;Viral Syndrome Presentation: 01/23 00:55 Chief complaint: Patient states: Reports left lower pelvic pain, epigastric pain, N/V lp1 for the past month. Denies any urinary symptoms; reports episode of dizziness and shortness of breath yesterday. Coronavirus screen: Client denies travel out of the [place] in the last 14 days. shortness of breath. Ebola Screen: No symptoms or risks identified at this time. Initial Sepsis Screen: Does the patient meet any 2 criteria? No. Patient's initial sepsis screen is negative. Does the patient have a suspected source of infection? No. Patient's initial sepsis screen is negative. Risk Assessment: Do you want to hurt yourself or someone else? Patient reports no desire to harm self or others. Onset of symptoms was January 23, 2021. 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 - Social history:: Smoking status: Patient reports the use of cigarette tobacco products, smokes one-half pack cigarettes per day, Patient uses street drugs, marijuana. Screenin:45 Abuse screen: Denies threats or abuse. Nutritional screening: No deficits noted. em Tuberculosis screening: No symptoms or risk factors identified. Fall Risk None identified. Assessment: 01:05 General: Appears in no apparent distress. Behavior is calm, cooperative, appropriate ea for age. Pain: Complains of pain in abdomen. Neuro: Level of Consciousness is awake, alert, obeys commands, Oriented to person, place, time, situation. Cardiovascular: Patient's skin is warm and dry. Respiratory: Airway is patent Respiratory effort is even, unlabored, Respiratory pattern is regular, symmetrical. Derm: Skin is pink, warm \T\ dry. 01:57 Reassessment: Patient and/or family updated on plan of care and expected duration. Pain ea level reassessed. Patient is alert, oriented x 3, equal unlabored respirations, skin warm/dry/pink. Provider at bedside updating pt on plan of care. 02:12 Reassessment: Patient and/or family updated on plan of care and expected duration. Pain ea level reassessed. Patient is alert, oriented x 3, equal unlabored respirations, skin warm/dry/pink. Discharge instruction given to patient verbalized the understanding of instruction. pt left ED ambulatory tolerating well. Vital Signs: 00:55 BP 147 / 87; Pulse 77; Resp 16; Temp 98.4(O); Pulse Ox 99% on R/A; Weight 61.23 kg (R); lp1 Height 5 ft. 6 in. (167.64 cm); 01:53 BP 128 / 68; Pulse 70; Resp 17; Pulse Ox 98% ; ea 00:55 Body Mass Index 21.79 (61.23 kg, 167.64 cm) lp1 ED Course: 00:39 Patient arrived in ED. am4 00:42 Mauricio Jaed, DRU is Primary Nurse. em 00:43 Adrian Martinez MD is Attending Physician. mh7 00:45 Patient has correct armband on for positive identification. Bed in low position. Pulse em ox on. NIBP on. 00:45 Arm band placed on. em 00:57 Triage completed. lp1 01:07 UDS Sent. ds4 01:12 XRAY Chest (1 view) In Process Unspecified. EDMS 02:12 No provider procedures requiring assistance completed. IV discontinued, intact, ea bleeding controlled, No redness/swelling at site. Pressure dressing applied. Administered Medications: 01:03 Drug: Zofran (Ondansetron) 4 mg Route: IVP; Site: left antecubital; ea 01:03 Drug: NS 0.9% 1000 ml Route: IV; Rate: 1000 ml; Site: left antecubital; ea Outcome: 02:04 Discharge ordered by . 7 02:12 Discharged to home ambulatory, with family. ea 02:12 Condition: stable 02:12 Discharge instructions given to patient, Instructed on discharge instructions, follow up and referral plans. medication usage, Demonstrated understanding of instructions, follow-up care, medications, Prescriptions given X 2. 02:13 Patient left the ED. ea Signatures: Dispatcher [employer] EDMauricio Casanova RN RN Emily Fonseca RN RN lp1 Cuong Cho ds4 Leslie Rincon RN RN ea Holmes, Maurice, MD MD 7 Catherine Mcginnis 4
--- NOTE | 2021-01-23 02:05 | EDPHYS ---
Physician Documentation [facility] Name: Dafne Munguia Age: 20 yrs Sex: Female : 2000 Arrival Date: 01/23/2021 Time: 00:39 Bed 8 Private MD: ED Physician Adrian Martinez HPI: 01/23 01:09 This 20 yrs old Female presents to ER via Ambulatory with complaints of mh7 Urinary Problem. 01:09 The patient presents with abdominal pain in the left lower quadrant. Onset: The mh7 symptoms/episode began/occurred 1 month(s) ago, intermittent upper abdominal pain for one month. The symptoms radiate to the left flank. 01:10 Associated signs and symptoms: Pertinent positives: nausea and vomiting, shortness of mh7 breath, with coughing. The symptoms are described as intermittent, vague, waxing/waning. Modifying factors: The symptoms are alleviated by nothing, the symptoms are aggravated by nothing. 01:12 Severity of pain: At its worst the pain was moderate yesterday, in the emergency 7 department the pain has improved moderately. The patient has been recently seen by a physician: the patient's primary care provider, 4 day(s) ago, started on Azithromycin. CHEMIST PHARMACEUTICAL: 00:59 LMP 01/16/2021 lp1 Historical: - Allergies: 00:59 antifungal medication; lp1 00:59 Sulfa (Sulfonamide Antibiotics); lp1 - Home Meds: 00:59 None [Active]; lp1 - PMHx: 00:59 Anemia; Hernia; lp1 - PSHx: 00:59 Appendectomy; Hernia repair; lp1 - Immunization history:: Adult Immunizations up to date. - Social history:: Smoking status: Patient reports the use of cigarette tobacco products, smokes one-half pack cigarettes per day, Patient uses street drugs, marijuana. ROS: 01:12 Constitutional: Negative for fever, chills, and weight loss, Eyes: Negative for injury, mh7 pain, redness, and discharge, ENT: Negative for injury, pain, and discharge, Neck: Negative for injury, pain, and swelling, Cardiovascular: Negative for chest pain, palpitations, and edema. 01:12 : Negative for injury, bleeding, discharge, and swelling, MS/Extremity: Negative for injury and deformity, Skin: Negative for injury, rash, and discoloration, Neuro: Negative for headache, weakness, numbness, tingling, and seizure, Psych: Negative for depression, anxiety, suicide ideation, homicidal ideation, and hallucinations, Allergy/Immunology: Negative for hives, rash, and allergies, Endocrine: Negative for neck swelling, polydipsia, polyuria, polyphagia, and marked weight changes, Hematologic/Lymphatic: Negative for swollen nodes, abnormal bleeding, and unusual bruising. 01:12 Respiratory: Positive for cough, with no reported sputum. Exam: 01:12 Constitutional: This is a well developed, well nourished patient who is awake, alert, mh7 and in no acute distress. Head/Face: Normocephalic, atraumatic. Eyes: Pupils equal round and reactive to light, extra-ocular motions intact. Lids and lashes normal. Conjunctiva and sclera are non-icteric and not injected. Cornea within normal limits. Periorbital areas with no swelling, redness, or edema. Neck: Trachea midline, no thyromegaly or masses palpated, and no cervical lymphadenopathy. Supple, full range of motion without nuchal rigidity, or vertebral point tenderness. No Meningismus. Chest/axilla: Normal chest wall appearance and motion. Nontender with no deformity. No lesions are appreciated. Cardiovascular: Regular rate and rhythm with a normal S1 and S2. No gallops, murmurs, or rubs. Normal PMI, no JVD. No pulse deficits. Respiratory: Lungs have equal breath sounds bilaterally, clear to auscultation and percussion. No rales, rhonchi or wheezes noted. No increased work of breathing, no retractions or nasal flaring. Skin: Warm, dry with normal turgor. Normal color with no rashes, no lesions, and no evidence of cellulitis. MS/ Extremity: Pulses equal, no cyanosis. Neurovascular intact. Full, normal range of motion. Neuro: Awake and alert, GCS 15, oriented to person, place, time, and situation. Cranial nerves II-XII grossly intact. Motor strength 5/5 in all extremities. Sensory grossly intact. Cerebellar exam normal. Normal gait. Psych: Awake, alert, with orientation to person, place and time. Behavior, mood, and affect are within normal limits. 01:58 Back: No spinal tenderness. No costovertebral tenderness. Full range of motion. 7 01:58 Abdomen/GI: Inspection: abdomen appears normal, Bowel sounds: normal, in all quadrants, Palpation: abdomen is soft and non-tender, in all quadrants, Rectal exam: the exam is deferred, because of patient request, Indicators: McBurney's point is not tender, Donaldson's sign is negative, Rovsing's sign is negative, Obturator sign is negative, Psoas sign is negative, Liver: no appreciated palpable abnormalities, Hernia: not appreciated. 01:58 : CVA tenderness, is absent, Pelvic Exam: The exam is refused by the patient/guardian. The risks and consequences are understood by the patient, Bladder: is normal. Vital Signs: 00:55 BP 147 / 87; Pulse 77; Resp 16; Temp 98.4(O); Pulse Ox 99% on R/A; Weight 61.23 kg (R); lp1 Height 5 ft. 6 in. (167.64 cm); 01:53 BP 128 / 68; Pulse 70; Resp 17; Pulse Ox 98% ; ea 00:55 Body Mass Index 21.79 (61.23 kg, 167.64 cm) lp1 MDM: 01:58 Differential diagnosis: Ectopic , gastritis, gastroesophageal reflux disease, mh7 non-specific abd pain, pancreatitis, Peptic Ulcer Disease, Pyelonephritis, Ureterolithiasis, urinary tract infection. Data reviewed: vital signs, nurses notes, lab test result(s), CBC, electrolytes, urinalysis, urine drug screen, UPT: negative radiologic studies, plain films. Counseling: I had a detailed discussion with the patient and/or guardian regarding: the historical points, exam findings, and any diagnostic results supporting the discharge/admit diagnosis, lab results, radiology results, to return to the emergency department if symptoms worsen or persist or if there are any questions or concerns that arise at home. Response to treatment: the patient's symptoms have markedly improved after treatment. Refusal of service: The patient/guardian displays adequate decision making capability and despite a detailed discussion of alternatives, benefits, risks, and consequences refuses: CT Scan. 02:04 Patient medically screened. [facility] 01/23 00:55 Order name: Basic Metabolic Panel; Complete Time: :47 ea 01/23 00:55 Order name: CBC with Diff; Complete Time: :47 ea 01/23 00:55 Order name: Hepatic Function; Complete Time: :47 ea 01/23 00:55 Order name: Lipase; Complete Time: :47 ea 01/23 00:55 Order name: UDS; Complete Time: :47 ea 01/23 01:07 Order name: Urine --Ancillary (enter results); Complete Time: 01:47 ds4 01/23 00:55 Order name: XRAY Chest (1 view) 01/23 00:55 Order name: IV Saline Lock; Complete Time: : 01/23 00:55 Order name: Labs collected and sent; Complete Time: : ea 01/23 00:57 Order name: Urine Dipstick-Ancillary (obtain specimen); Complete Time: : 01/23 00:57 Order name: Urine Test (obtain specimen); Complete Time: : 01/23 01:07 Order name: Urine Dipstick--Ancillary (enter results); Complete Time: :47 ds4 Administered Medications: 01:03 Drug: Zofran (Ondansetron) 4 mg Route: IVP; Site: left antecubital; ea 01:03 Drug: NS 0.9% 1000 ml Route: IV; Rate: 1000 ml; Site: left antecubital; ea Disposition: 01/23/21 02:04 Discharged to Home. Impression: Nausea with vomiting, unspecified, Generalized abdominal pain, Viral Syndrome. - Condition is Stable. - Discharge Instructions: Abdominal Pain, Adult, Nausea and Vomiting, Adult, [id number]. - Prescriptions for Zofran ODT 4 mg Oral tablet,disintegrating - place 1 tablet by TRANSLINGUAL route every 8 hours As needed; 6 tablet. Bentyl 20 mg Oral Tablet - take 1 tablet by ORAL route every 6 hours As needed; 20 tablet. - Medication Reconciliation Form, Thank You Letter, Antibiotic Education, Prescription Opioid Use form. - Follow up: Private Physician; When: 1 - 2 days; Reason: Worsening of condition, Recheck today's complaints, Continuance of care, Re-evaluation by your physician. - Problem is chronic. - Symptoms have improved. Signatures: Dispatcher [employer] EDEmily Botello RN RN lp1 Leslie Rincon RN RN ea Adrian Martinez MD MD mh7 Corrections: (The following items were deleted from the chart) 01:57 01:09 Onset: The symptoms/episode began/occurred yesterday, intermittent upper 7 abdominal pain for one month, 7 02:13 02:04 01/23/2021 02:04 Discharged to Home. Impression: Nausea with vomiting, ea unspecified; Generalized abdominal pain; Viral Syndrome. Condition is Stable. Forms are Medication Reconciliation Form, Thank You Letter, Antibiotic Education, Prescription Opioid Use. Follow up: Private Physician; When: 1 - 2 days; Reason: Worsening of condition, Recheck today's complaints, Continuance of care, Re-evaluation by your physician. Problem is chronic. Symptoms have improved. 7
[2021-01-23 02:17] VITALS: TEMP 98.4
[2021-01-23 02:19] VITALS: BP 128/68; O2SAT 98
--- NOTE | 2021-01-23 13:05 | RAD REPORT ---
EXAM DESCRIPTION: Chest Radiography COMPARISON: None. CLINICAL HISTORY: [facility] MA[facility] COUGH FINDINGS: A single AP view of the chest demonstrates a normal cardiomediastinal silhouette. No pneumothorax or pleural effusion. No consolidation or pulmonary edema. Osseous structures are intact. IMPRESSION: No acute chest process. Electronically signed by: Sage Hartmann MD 01/23/2021 1:17 AM CDT Due to temporary technical issues with the PACS/Fluency reporting system, reports are being signed by the in house radiologist without review as a courtesy to ensure prompt reporting. The interpreting r adiologist is fully responsible for the content of the report.
== END 2021-01-23 02:13 | disposition home or self-care (01) ==
LOC: ER 00:34
DX: B34.9 Viral infection, unspecified (principal); R11.2 Nausea with vomiting, unspecified; F17.210 Nicotine dependence, cigarettes, uncomplicated; Z88.2 Allergy status to sulfonamides; Z88.8 Allergy status to other drugs, medicaments and biological substances
CPT/HCPCS: 85025; 80048; 36415; 81025; 80076; 80307 ×8; 81003; 83690; 71045; J7030; J2405; 96361; 96374; 99284

== ENCOUNTER 2021-02-13 23:01 | Emergency (ER) | payer BC ==
--- OUTSIDE RECORDS SUMMARY | 2021-02-13 23:04 | XMS REPORT | Continuity of Care Document ---
:2000 Author Organization [facility] t Address [address] [place] [address] Care Team Providers Name Role Phone Te [...] Clinicians Facility Department ID 2020-12-21 2020-12-21 Case [facility] [id number] 00:00:00 00:00:00 Management Lottie Alanis [id number] [place] [id number] [facility] [phone] [address] Building 2020-12-16 2020-12-16 [facility] [id number] 11:14:06 12:17:33 Visit Lottie Alanis [id number] [place] [id number] [facility] [phone] [address] Building Results This patient has no known results.
[2021-02-14 00:07] LABS: Urine Blood 3+ (Negative); Urine Glucose Negative (Negative); Urine Protein 2+ (Negative); Urine Specific Gravity >=1.030 (1.005-1.030)
[2021-02-14 00:16] LABS: Absolute Lymphocytes (CBC) 2.5 K/uL (0.7-4.9); Basophils % 0.3 % (0-1.3); Hematocrit 39.9 % (36.0-45.0); MPV 10.2 fL (7.6-11.3); RBC Red Blood Cell Count 4.54 M/uL (3.86-4.86)
[2021-02-14 00:33] LABS: ALT/SGPT 31 U/L (12-78); AST/SGOT 40 U/L (15-37); Alkaline Phosphatase 76 U/L (45-117); BUN Blood Urea Nitrogen 11 mg/dL (7-18); Bicarbonate 24 mmol/L (21-32); Bilirubin Total 0.4 mg/dL (0.2-1.0); Glucose Level 95 mg/dL (74-106); Potassium 3.9 mmol/L (3.5-5.1); Sodium Level 142 mmol/L (136-145); Troponin (Emerg Dept Use Only) < 0.02 ng/mL (0.0-0.045)
[2021-02-14 00:43] LABS: Urine Specific Gravity/Preg >1.030 (1.005-1.030)
--- NOTE | 2021-02-14 02:36 | ER ---
Nurse's Notes [facility] Name: Dafne Munguia Age: 20 yrs Sex: Female : 2000 Arrival Date: 02/13/2021 Time: 23:04 Bed 15 Private MD: Diagnosis: Cough Presentation: 02/13 23:17 Note no answer from the lobby at this time. em 23:32 Chief complaint: Patient states: I was at [facility] yesterday . I have knots in my neck jb4 and it causes pain to radiate from my shoulder to my neck. 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 I have had a white patch in the back of my throat for weeks now. They said I have strep and gave me a penicillin shot yesterday but it isn't better and it feels like I have swelling my neck at times that makes it hard to breathe. Coronavirus screen: Client denies travel out of the [place] in the last 14 days. Ebola Screen: No symptoms or risks identified at this time. Initial Sepsis Screen: Does the patient meet any 2 criteria? No. Patient's initial sepsis screen is negative. Does the patient have a suspected source of infection? No. Patient's initial sepsis screen is negative. Risk Assessment: Do you want to hurt yourself or someone else? Patient reports no desire to harm self or others. Onset of symptoms was February 12, 2021. Transition of care: patient was not received from another setting of care. 23:32 Method Of Arrival: Ambulatory 4 23:32 Acuity: [place] 3 jb4 Historical: - Allergies: 23:44 antifungal medication; jb4 23:44 Sulfa (Sulfonamide Antibiotics); jb4 - PMHx: 23:44 Anemia; Hernia; Tumor; jb4 - PSHx: 23:44 Appendectomy; Hernia repair; Tumor Removal; jb4 - Immunization history:: Adult Immunizations up to date. - Social history:: Smoking status: Patient denies any tobacco usage or history of. Patient/guardian denies using alcohol, street drugs. Screenin:44 Abuse screen: Denies threats or abuse. Nutritional screening: No deficits noted. jb4 Tuberculosis screening: No symptoms or risk factors identified. Fall Risk None identified. Assessment: 23:44 General: Appears in no apparent distress. uncomfortable, Behavior is calm, cooperative, jb4 appropriate for age. Pain: Complains of pain in chest Pain radiates to neck Pain currently is 7 out of 10 on a pain scale. Quality of pain is described as burning. Neuro: Level of Consciousness is awake, alert, obeys commands, Oriented to person, place, time, situation. Cardiovascular: Heart tones S1 S2 present Patient's skin is warm and dry. Rhythm is sinus rhythm. Respiratory: Airway is patent Respiratory effort is even, unlabored, Respiratory pattern is regular, symmetrical, Breath sounds are clear bilaterally. GI: No signs and/or symptoms were reported involving the gastrointestinal system. : No signs and/or symptoms were reported regarding the genitourinary system. EENT: Throat is clear is pink with gag reflex present. Derm: Skin is intact, Skin is pink, warm \T\ dry. Musculoskeletal: Circulation, motion, and sensation intact. Range of motion: intact in all extremities. 02/14 00:36 Reassessment: Patient appears in no apparent distress at this time. Patient and/or jb4 family updated on plan of care and expected duration. Pain level reassessed. Patient is alert, oriented x 3, equal unlabored respirations, skin warm/dry/pink. 01:45 Reassessment: Patient appears in no apparent distress at this time. Patient and/or jb4 family updated on plan of care and expected duration. Pain level reassessed. Patient is alert, oriented x 3, equal unlabored respirations, skin warm/dry/pink. 02:58 Reassessment: Patient appears in no apparent distress at this time. Patient and/or jb4 family updated on plan of care and expected duration. Pain level reassessed. Patient is alert, oriented x 3, equal unlabored respirations, skin warm/dry/pink. Vital Signs: 02/13 23:32 BP 147 / 81; Pulse 66; Resp 16; Temp 98.4; Pulse Ox 98% on R/A; Weight 66.22 kg (R); jb4 Height 5 ft. 6 in. (167.64 cm); Pain 05/13; 02/14 00:30 BP 124 / 70; Pulse 75; Resp 16; Pulse Ox 100% on R/A; jb4 01:00 BP 116 / 66; Pulse 62; Resp 18; Pulse Ox 97% on R/A; jb4 02:22 BP 112 / 69; Pulse 74; Resp 16; Pulse Ox 99% on R/A; jb4 02/13 23:32 Body Mass Index 23.56 (66.22 kg, 167.64 cm) jb ED Course: 02/13 23:04 Patient arrived in ED. ag3 23:18 Duran Pride PA is PHCP. [facility] 23:18 Hector Jacobs MD is Attending Physician. [facility] 23:32 Aditya Peck, RN is Primary Nurse. jb4 23:43 Triage completed. jb4 23:44 Arm band placed on right wrist. jb4 23:44 Patient has correct armband on for positive identification. Bed in low position. Call [facility] light in reach. Side rails up X 1. sales vendor on. Pulse ox on. NIBP on. 02/14 01:51 CT Soft Tissue Neck W/contr In Process Unspecified. EDMS 01:51 CT Chest For PE Angio In Process Unspecified. EDMS 02:59 No provider procedures requiring assistance completed. IV discontinued, intact, jb4 bleeding controlled, No redness/swelling at site. Pressure dressing applied. Administered Medications: No medications were administered Outcome: 02:36 Discharge ordered by . ma2 02:59 Discharged to home ambulatory. jb4 02:59 Condition: stable 02:59 Discharge instructions given to patient, Instructed on discharge instructions, follow up and referral plans. Demonstrated understanding of instructions, follow-up care. 02:59 Patient left the ED. [facility] Signatures: Dispatcher [employer] EDAZ Duran Pride PA PA Mauricio Swenson RN RN Aditya Peck, RN RN [facility] Hector Jacobs MD MD [facility] Nelida Lockhart 3
--- NOTE | 2021-02-14 02:36 | EDPHYS ---
Physician Documentation [facility] Name: Dafne Munguia Age: 20 yrs Sex: Female : 2000 Arrival Date: 02/13/2021 Time: 23:04 Bed 15 Private MD: ED Physician Hector Jacobs HPI: 02/13 23:18 This 20 yrs old Female presents to ER via Ambulatory with complaints of sore jmm throat, chest pain. 23:18 The patient presents with sore throat. Onset: The symptoms/episode began/occurred jmm gradually, 1 day(s) ago. Modifying factors: The symptoms are alleviated by nothing, the symptoms are aggravated by nothing. This is a 20 year old female with a history of anemia, that presents to the ED with complaints of sore throat, fb sensation, which has been ongoing for months according to the patient. Was evaluated in [place] and diagnosed with strep. 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 Patient also complains of ongoing chest pain/sob. Denies fever, chills. Patient states abx have not helped symptoms. . Historical: - Allergies: 23:44 antifungal medication; jb4 23:44 Sulfa (Sulfonamide Antibiotics); jb4 - PMHx: 23:44 Anemia; Hernia; Tumor; jb4 - PSHx: 23:44 Appendectomy; Hernia repair; Tumor Removal; jb4 - Immunization history:: Adult Immunizations up to date. - Social history:: Smoking status: Patient denies any tobacco usage or history of. Patient/guardian denies using alcohol, street drugs. ROS: 23:18 Constitutional: Negative for fever, chills, and weight loss. jmm 23:18 ENT: Positive for hearing loss, sore throat. 23:18 Cardiovascular: Positive for chest pain. 23:18 Respiratory: Positive for shortness of breath. 23:18 All other systems are negative. Exam: 23:18 Constitutional: This is a well developed, well nourished patient who is awake, alert, jmm and in no acute distress. Head/Face: atraumatic. Eyes: EOMI, no conjunctival erythema appreciated ENT: Moist Mucus Membranes Neck: Trachea midline, Supple Chest/axilla: Normal chest wall appearance and motion. Cardiovascular: Regular rate and rhythm. No edema appreciated Respiratory: Normal respirations, no respiratory distress appreciated Abdomen/GI: Non distended, soft Back: Normal ROM Skin: General appearance color normal MS/ Extremity: Moves all extremities, no obvious deformities appreciated, no edema noted to the lower extremities Neuro: Awake and alert, normal gait Psych: Behavior is normal, Mood is normal, Patient is cooperative and pleasant 23:18 ENT: Posterior pharynx: is normal, peritonsillar mass, is not appreciated. Vital Signs: 23:32 BP 147 / 81; Pulse 66; Resp 16; Temp 98.4; Pulse Ox 98% on R/A; Weight 66.22 kg (R); jb4 Height 5 ft. 6 in. (167.64 cm); Pain 7/10; 02/14 00:30 BP 124 / 70; Pulse 75; Resp 16; Pulse Ox 100% on R/A; jb4 01:00 BP 116 / 66; Pulse 62; Resp 18; Pulse Ox 97% on R/A; jb4 02:22 BP 112 / 69; Pulse 74; Resp 16; Pulse Ox 99% on R/A; jb4 02/13 23:32 Body Mass Index 23.56 (66.22 kg, 167.64 cm) jb4 MDM: 02/13 23:18 Patient medically screened. [facility] 02/14 00:46 Transition of care: After a detail discussion of the patient's case, care is suhail transferred to Hector Jacobs MD. 02:35 Differential diagnosis: cough, covid. Data reviewed: vital signs, nurses notes. ma2 Counseling: I had a detailed discussion with the patient and/or guardian regarding: the historical points, exam findings, and any diagnostic results supporting the discharge/admit diagnosis, the presence of at least one elevated blood pressure reading (>120/80) during this emergency department visit, the need for outpatient follow up. Response to treatment: the patient's symptoms have markedly improved after treatment. 02/13 23:34 Order name: CBC with Diff [facility] 02/13 23:34 Order name: CMP [facility] 02/13 23:34 Order name: Troponin (emerg Dept Use Only); Complete Time: 00:34 [facility] 02/13 23:35 Order name: CBC with Automated Diff; Complete Time: 00:29 EDMO 02/13 23:35 Order name: Comprehensive Metabolic Panel; Complete Time: 00:34 [facility] 02/14 00:07 Order name: Urine Dipstick-Ancillary; Complete Time: 00:27 [facility] 02/13 23:34 Order name: Saline Lock; Complete Time: 00:06 [facility] 02/13 23:34 Order name: CT Soft Tissue Neck W/contr [facility] 02/13 23:34 Order name: CT Chest For PE Angio [facility] 02/13 23:34 Order name: EKG - Nurse/Tech; Complete Time: 23:46 [facility] 02/14 00:09 Order name: Urine --Ancillary (enter results); Complete Time: 00:46 tt3 Administered Medications: No medications were administered Disposition: 02/14/21 02:36 Discharged to Home. Impression: Cough. - Condition is Stable. - Discharge Instructions: Cough, Adult, [id number]. - Medication Reconciliation Form, Thank You Letter, Antibiotic Education, Prescription Opioid Use form. - Follow up: Private Physician; When: Tomorrow; Reason: If symptoms return, Continuance of care. Addendum: 03/06/2021 11:07 Co-signature as Attending Physician, Hector Jacobs MD. m a2 Signatures: Dispatcher [employer] [facility] Duran Pride PA PA [facility] Aditya Peck, DRU RN jb4 Hector Jacobs MD MD ma2 Corrections: (The following items were deleted from the chart) 02/14 02:59 02:36 02/14/2021 02:36 Discharged to Home. Impression: Cough. Condition is Stable. jb4 Forms are Medication Reconciliation Form, Thank You Letter, Antibiotic Education, Prescription Opioid Use. Follow up: Private Physician; When: Tomorrow; Reason: If symptoms return, Continuance of care. ma2
[2021-02-14 03:06] VITALS: TEMP 98.4
[2021-02-14 03:10] VITALS: BP 112/69; O2SAT 99
--- NOTE | 2021-02-14 12:18 | RAD REPORT ---
EXAM DESCRIPTION: Soft Tissue Neck W/Contr 02/14/2021 1:54 AM CDT CLINICAL HISTORY: 20 years, Female, sore throat, FB sensation, swelling COMPARISON: None. TECHNIQUE: Multiple transaxial tomograms of the neck were obtained from the base of the skull to the pulmonary apex utilizing 3 mm slice thickness at 3 mm interval reconstruction after the administrati on of IV contrast. No dosing amount was provided for interpretation. In addition coronal and sagittal spinal reformats were generated and reviewed. An individualized dose optimization technique, Automated Exposure Control, was utilized for the perfo rmed procedure. FINDINGS: Skull base demonstrate to be normal. Nasopharynx, oropharynx, hypopharynx is normal. P arapharyngeal space demonstrate to be normal. There is normal appearance of the mucosa with no eviden ce for significant abnormal enhancing lesions. There is no evidence for abscess formation. Parotid an d submandibular glands are normal. The visualized portions of the paranasal sinuses demonstrate to be within normal limits. Tiny nondiagnostic lymph nodes are seen within the posterior neck. Paraver tebral elements are grossly unremarkable. There is no evidence for significant lymphadenopathy. The thyroid gland demonstrate to be unremarkable. Visualized portions of the lung apices demonstrate to be within normal limits. IMPRESSION: Unremarkable CT scan soft tissue neck. No evidence for abnormal lesions and/or lymphadenopathy. Electronically signed by: Andrzej Thomas MD 02/14/2021 1:56 AM CDT Due to temporary technical issues with the PACS/Fluency reporting system, reports are being signed by the in house radiologists without review as a courtesy to insure prompt reporting. The interpreting radiologist is fully responsible for the content of the report.
--- NOTE | 2021-02-14 12:38 | RAD REPORT ---
EXAM DESCRIPTION: Chest For Pe Angio 02/14/2021 1:57 AM CDT CLINICAL HISTORY: 20 years, Female, shortness of breath COMPARISON: None. TECHNIQUE: Multiple transaxial tomograms of the chest were obtained from the lung apices through the lung bases utilizing 2 mm slice thickness at 2 mm interval reconstruction after the administration o f large bolus of IV contrast for complete opacification of the pulmonary arteries. Subsequent maximum intensity projection images were generated in the coronal and sagittal plane for r eview. An individualized dose optimization technique, Automated Exposure Control, was utilized for the perfo rmed procedure. FINDINGS: The lungs parenchyma demonstrate to be clear. No masses, nodules and/or consolidations are identified. The trachea mainstem bronchus demonstrate to be normal. There is no significant perica rdial or pleural effusions. The thoracic aorta demonstrate to be unremarkable. The heart is normal in size. No evidence for right ventricular strain. No evidence for coronary artery calcifications. There is no significant mediastinal and/or hilar lymphadenopathy. The axillary regions demonstrate to be clear. Pulmonary arteries demonstrate to be normal, no intraluminal defect are seen that would suggest pulmo nary embolus. The bone windows demonstrate no significant skeletal lesions. The visualized portions of the upper abdomen demonstrate to be unremarkable. IMPRESSION: No evidence for pulmonary embolus. No significant abnormality noted involving the lungs. Electronically signed by: Andrzej Thomas MD 02/14/2021 2:04 AM CDT Due to temporary technical issues with the PACS/Fluency reporting system, reports are being signed by the in house radiologists without review as a courtesy to insure prompt reporting. The interpreting radiologist is fully responsible for the content of the report.
--- NOTE | 2021-02-14 16:34 | EKG ---
Test Date: 2021-02-13 Test Time: 23:42:44 [employer] Associate: MG MEASUREMENT RESULTS: Intervals: Rate: 63 VT: 140 QRSD: 102 QT: 436 QTc: 446 [place]: P: 60 VT: 140 QRS: 73 T: 46 INTERPRETIVE STATEMENTS: Normal sinus rhythm Incomplete right bundle branch block Borderline ECG Compared to ECG 05/08/2016 01:31:49 Sinus arrhythmia no longer present Electronically Signed On 02-14-21 16:32:53 CDT by Rolando Soto
== END 2021-02-14 02:59 | disposition home or self-care (01) ==
LOC: ER 23:01
DX: R05 Cough (principal); J02.9 Acute pharyngitis, unspecified; R07.9 Chest pain, unspecified
CPT/HCPCS: 93005; 85025; 36415; 81025; 81003; 84484; 80053; 70491; 71275; Q9967; 99284

== ENCOUNTER 2021-05-25 19:43 | Emergency (ER) | payer BC, OTHER ==
--- OUTSIDE RECORDS SUMMARY | 2021-05-25 19:46 | XMS REPORT | Continuity of Care Document ---
:2000 Author Organization [facility] t Address [address] [place] [address] Care Team Providers Name Role Phone Te [...] Department ID 2020-12-21 2020-12-21 Case [facility] [id number] 00:00:00 00:00:00 Management Lottie Alanis [id number] [place] [id number] Professio [phone] nal 134 Building 2020-12-16 2020-12-16 Office [place] [id number] 11:14:06 12:17:33 Visit Lottie Alanis [id number] [place] [id number] Professio [phone] nal 134 Building Results This patient has no known results.
[2021-05-25 21:50] LABS: Urine Blood Negative (Negative); Urine Glucose Negative (Negative); Urine Protein Negative (Negative); Urine pH 5.5 (5.0-7.0)
[2021-05-25 22:38] LABS: Absolute Lymphocytes (CBC) 2.9 K/uL (0.7-4.9); Basophils % 0.5 % (0-1.3); Hematocrit 36.9 % (36.0-45.0); Lymphocytes % 32.4 % (15.3-44.8); MPV 9.8 fL (7.6-11.3); RBC Red Blood Cell Count 4.14 M/uL (3.86-4.86)
[2021-05-25 22:42] LABS: BUN Blood Urea Nitrogen 11 mg/dL (7-18); Bicarbonate 27 mmol/L (21-32); Glucose Level 89 mg/dL (74-106); HCG, Quantitative 466 mIU/mL (1-3); Potassium 3.6 mmol/L (3.5-5.1); Sodium Level 142 mmol/L (136-145)
--- NOTE | 2021-05-25 22:59 | EDPHYS ---
Physician Documentation [facility] Name: Dafne Munguia Age: 21 yrs Sex: Female : 2000 Arrival Date: 05/25/2021 Time: 20:07 Bed 18 Private MD: ED Physician Chris Viveros HPI: 05/25 23:55 This 21 yrs old Female presents to ER via Ambulatory with complaints of kb Abdominal Cramping, Abdominal Pain, UNSURE HOW FAR. 23:55 The patient presents to the emergency department with abdominal pain, of the right kb lower quadrant and left lower quadrant, that started 7 day(s) ago, described as crampy. course: care: private OB physician, Dr. Rosen. Previous pregnancies: in previous pregnancies patient has had. Associated signs and symptoms: Pertinent positives: abdominal pain, Pertinent negatives: vaginal discharge. The patient has not experienced similar symptoms in the past. The patient has not recently seen a physician. Reports abdominal cramping for 1 week. Had positive test a few days ago. Has had 2 miscarriages in the past. Came in today to rule out ectopic.. 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 Flu vaccine is not up to date. It has been more than one year since last vaccine. - Social history:: Smoking status: Patient reports the use of cigarette tobacco products, denies chronic smoking, but will smoke occasionally, Patient uses street drugs, marijuana. ROS: 23:54 Constitutional: Negative for fever, chills, and weight loss. kb 23:54 Abdomen/GI: Positive for abdominal cramps, Negative for nausea, vomiting, and diarrhea. 23:54 All other systems are negative. Exam: 23:55 Constitutional: This is a well developed, well nourished patient who is awake, alert, kb and in no acute distress. Head/Face: Normocephalic, atraumatic. ENT: Moist Mucous membranes Cardiovascular: Regular rate and rhythm with a normal S1 and S2. No gallops, murmurs, or rubs. No pulse deficits. Respiratory: Respirations even and unlabored. No increased work of breathing, no retractions or nasal flaring. Back: No spinal tenderness. No costovertebral tenderness. Full range of motion. Skin: Warm, dry with normal turgor. Normal color. MS/ Extremity: Pulses equal, no cyanosis. Neurovascular intact. Full, normal range of motion. Neuro: Awake and alert, GCS 15, oriented to person, place, time, and situation. Moves all extremities. Normal gait. Psych: Awake, alert, with orientation to person, place and time. Behavior, mood, and affect are within normal limits. 23:55 Abdomen/GI: Inspection: abdomen appears normal, Bowel sounds: normal, in all quadrants, Palpation: soft, in all quadrants, mild abdominal tenderness, in the suprapubic area. Vital Signs: 20:11 BP 127 / 67; Pulse 75; Resp 18; Temp 98.7; Pulse Ox 100% ; Weight 70.31 kg (R); Height bb 5 ft. 6 in. (167.64 cm); Pain 6/10; 22:00 BP 111 / 53; Pulse 68; Resp 18; Pulse Ox 100% on R/A; ld1 23:06 BP 118 / 62; Pulse 73; Resp 18; Pulse Ox 100% ; ld1 20:11 Body Mass Index 25.02 (70.31 kg, 167.64 cm) MDM: 21:49 Patient medically screened. kb 23:53 Data reviewed: vital signs, nurses notes. Data interpreted: Pulse oximetry: on room air kb is 100 %. Interpretation: normal. Counseling: I had a detailed discussion with the patient and/or guardian regarding: the historical points, exam findings, and any diagnostic results supporting the discharge/admit diagnosis, lab results, radiology results, the need for outpatient follow up, an OB/Gyne specialist, to return to the emergency department if symptoms worsen or persist or if there are any questions or concerns that arise at home. ED course: Patient has follow-up appointment with Dr. Rosen scheduled for next week. . 05/25 21:49 Order name: Urine Dipstick-Ancillary; Complete Time: 21:53 EDMS 05/25 21:51 Order name: Urine --Ancillary (enter results) mw2 05/25 21:51 Order name: Urine --Ancillary; Complete Time: 22:03 EDMS 05/25 21:57 Order name: Abo/rh Typing; Complete Time: 22:53 ld1 05/25 21:57 Order name: Basic Metabolic Panel; Complete Time: 22:43 ld1 05/25 21:57 Order name: CBC with Diff; Complete Time: 22:53 ld1 05/25 21:03 Order name: Urine Dipstick-Ancillary (obtain specimen); Complete Time: 21:59 kb 05/25 21:03 Order name: Urine Test (obtain specimen); Complete Time: 21:59 kb 05/25 21:57 Order name: Quantitative Hcg; Complete Time: 22:43 ld1 05/25 21:57 Order name: IV Saline Lock; Complete Time: 22:38 ld1 05/25 21:57 Order name: Labs collected and sent; Complete Time: 22:38 ld1 05/25 21:57 Order name: NPO; Complete Time: 21:59 ld1 05/25 21:57 Order name: US Transvaginal Ob ld1 Administered Medications: No medications were administered Disposition: 05/26 04:13 Co-signature as Attending Physician, Chris Viveros MD. pk Disposition Summary: 05/25/21 22:58 Discharge Ordered Location: Home kb Condition: Stable kb Diagnosis - Less than 8 weeks gestation of kb - Other abdominal pain - cramping kb Followup: kb - With: Emergency Department - When: As needed - Reason: Worsening of condition Followup: kb - With: Private Physician - When: 2 - 3 days - Reason: Recheck today's complaints, Continuance of care, Re-evaluation by your physician Discharge Instructions: - Discharge Summary Sheet kb - First Trimester of , [id number] kb Forms: - Medication Reconciliation Form kb - Thank You Letter kb - Antibiotic Education kb - Prescription Opioid Use kb Signatures: Dispatcher [employer] EDValentina Giang, SUPERINTENDENT GENERALJoseC Chris Manuel MD MD pkl Olivia Min RN RN bb Dibbern, Marlena, RN RN ld1
--- NOTE | 2021-05-25 22:59 | ER ---
Nurse's Notes [facility] Name: Dafne Munguia Age: 21 yrs Sex: Female : 2000 Arrival Date: 05/25/2021 Time: 20:07 Bed 18 Private MD: Diagnosis: Less than 8 weeks gestation of ;Other abdominal pain-cramping Presentation: 05/25 20:11 Chief complaint: Patient states: pt states lower abdomen pain, progressing for 1 week, bb positive home preg test 1 week ago hx of 2 miscarriages. Coronavirus screen: Client denies travel out of the [place] in the last 14 days. At this time, the client does not indicate any symptoms associated with coronavirus-19. Ebola Screen: Patient negative for fever greater than or equal to 101.5 degrees Fahrenheit, and additional compatible Ebola Virus Disease symptoms Patient denies exposure to infectious person. Patient denies travel to an Ebola-affected area in the 21 days before illness onset. No symptoms or risks identified at this time. Initial Sepsis Screen: Does the patient meet any 2 criteria? No. Patient's initial sepsis screen is negative. Does the patient have a suspected source of infection? No. Patient's initial sepsis screen is negative. Risk Assessment: Do you want to hurt yourself or someone else? Patient reports no desire to harm self or others. Onset of symptoms was May 16, 2021. 20:11 Method Of Arrival: Ambulatory bb 20:11 Acuity: [place] 3 bb Triage Assessment: 20:12 General: Appears in no apparent distress. uncomfortable, well groomed, well developed, bb well nourished, Behavior is calm, cooperative, appropriate for age. Pain: Complains of pain in pelvis Pain currently is 6 out of 10 on a pain scale. Pain began 1 week ago. GI: Reports lower abdominal pain, bloating, nausea. 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 Flu vaccine is not up to date. It has been more than one year since last vaccine. - Social history:: Smoking status: Patient reports the use of cigarette tobacco products, denies chronic smoking, but will smoke occasionally, Patient uses street drugs, marijuana. Screenin:00 Abuse screen: Denies threats or abuse. Denies injuries from another. Nutritional ld1 screening: No deficits noted. Tuberculosis screening: No symptoms or risk factors identified. Fall Risk None identified. Assessment: 22:00 General: Appears in no apparent distress. comfortable, Behavior is calm, cooperative, ld1 appropriate for age. 22:00 Pain: Complains of pain in abdomen Pain does not radiate. Pain currently is 8 out of 10 ld1 on a pain scale. Quality of pain is described as crampy, Pain began 2-3 days ago. Is continuous. Neuro: Level of Consciousness is awake, alert, obeys commands, Oriented to person, place, time, situation. Cardiovascular: Capillary refill < 3 seconds Patient's skin is warm and dry. Respiratory: Airway is patent Respiratory effort is even, unlabored, Respiratory pattern is regular, symmetrical. GI: Abdomen is flat, non-distended, Bowel sounds present X 4 quads. Abd is soft Abdomen is tender to palpation in suprapubic area Reports cramping. : No signs and/or symptoms were reported regarding the genitourinary system. Reports cramping, lower quadrant(s). EENT: No signs and/or symptoms were reported regarding the EENT system. Derm: No signs and/or symptoms reported regarding the dermatologic system. Musculoskeletal: No signs and/or symptoms reported regarding the musculoskeletal system. 23:06 Reassessment: Patient appears in no apparent distress at this time. No changes from ld1 previously documented assessment. Patient and/or family updated on plan of care and expected duration. Pain level reassessed. Patient is alert, oriented x 3, equal unlabored respirations, skin warm/dry/pink. Vital Signs: 20:11 BP 127 / 67; Pulse 75; Resp 18; Temp 98.7; Pulse Ox 100% ; Weight 70.31 kg (R); Height bb 5 ft. 6 in. (167.64 cm); Pain 6/10; 22:00 BP 111 / 53; Pulse 68; Resp 18; Pulse Ox 100% on R/A; ld1 23:06 BP 118 / 62; Pulse 73; Resp 18; Pulse Ox 100% ; ld1 20:11 Body Mass Index 25.02 (70.31 kg, 167.64 cm) ED Course: 20:07 Patient arrived in ED. cf2 20:12 Triage completed. bb 20:12 Arm band placed on right wrist. bb 21:03 Valentina Umanzor FNP-C is [facility]. kb 21:03 Chris Viveros MD is Attending Physician. kb 21:54 Marlena Zacarias, RN is Primary Nurse. ld1 22:00 Patient has correct armband on for positive identification. Bed in low position. Call ld1 light in reach. Side rails up X2. Pulse ox on. NIBP on. 22:00 No provider procedures requiring assistance completed. Inserted saline lock: 20 gauge ld1 in right antecubital area, using aseptic technique. Blood collected. 22:35 US Transvaginal Ob In Process Unspecified. EDMS 23:06 IV discontinued, intact, bleeding controlled, No redness/swelling at site. ld1 Administered Medications: No medications were administered Outcome: 22:58 Discharge ordered by MD. kb 23:06 Discharged to home ambulatory. ld1 23:06 Condition: stable 23:06 Discharge instructions given to patient, Instructed on discharge instructions, follow up and referral plans. Demonstrated understanding of instructions, follow-up care. 23:06 Patient left the ED. ld1 Signatures: Dispatcher [employer] EDMI Valentina Umanzor FNP-C FNP-Ckb Ballard, Brenda, RN RN Rowena Andrade 2 Marlena Zacarias, RN RN ld1
[2021-05-26 01:09] VITALS: TEMP 98.7; O2SAT 100
[2021-05-26 01:13] VITALS: BP 118/62
--- NOTE | 2021-05-26 08:01 | RAD REPORT ---
EXAM DESCRIPTION: US - Transvaginal OB - 05/25/2021 10:35 pm CLINICAL HISTORY: ABD CRAMPING, beta HCG value not available Preliminary findings were provided at the time of the study. COMPARISON: Transvaginal OB dated 10/02/2020 FINDINGS: Retroflexed normal sized uterus shows no myometrial finding. Endometrial cavity shows no m ass or polyp. No gestational sac or sac remnant identifiable. No measurable hematoma within the endom etrial cavity. No blood or fluid in the cul de sac. Both ovaries are identified and normal size. Normal blood flow seen in each ovary. No adnexal mass to suspect ectopic at this time. IMPRESSION: No intrauterine gestational sac or sac remnant. No finding to suspect ectopic . Repeat imaging can be performed if the patient remains symptomatic and serial beta HCG values indicat e ongoing .
== END 2021-05-25 23:06 | disposition home or self-care (01) ==
LOC: ER 19:43
DX: O26.891 Other specified pregnancy related conditions, first trimester (principal); O99.331 Smoking (tobacco) complicating pregnancy, first trimester; F17.210 Nicotine dependence, cigarettes, uncomplicated; Z3A.01 Less than 8 weeks gestation of pregnancy; Z88.2 Allergy status to sulfonamides; Z88.8 Allergy status to other drugs, medicaments and biological substances
CPT/HCPCS: 36415; 76817; 80048; 81003; 81025; 84702; 85025; 86900; 86901; 99284

== ENCOUNTER 2021-06-13 14:38 | Emergency (ER) | payer OTHER ==
--- OUTSIDE RECORDS SUMMARY | 2021-06-13 15:15 | XMS REPORT | Continuity of Care Document ---
:2000 Author Organization [facility] t Address [address] [place] [address] Care Team Providers Name Role Phone Te [...] Clinicians Facility Department ID 2020-12-21 2020-12-21 Case [facility] [id number] 00:00:00 00:00:00 Management Lottie Alanis [id number] [place] [id number] Professio [phone] nal 134 Building 2020-12-16 2020-12-16 [facility] [id number] 11:14:06 12:17:33 Visit Lottie Alanis [id number] [place] [id number] Professio [phone] nal 134 Building Results This patient has no known results.
[2021-06-13 16:03] LABS: Urine Blood Negative (Negative); Urine Glucose Negative (Negative); Urine Protein 2+ (Negative); Urine pH >=9.0 (5.0-7.0)
[2021-06-13] MEDS ORDERED: Ringers Lactate 1,000 ML IV ONE ×2 (16:12→17:08)
[2021-06-13] MEDS ORDERED: PROMETHAZINE INJ 25 MG/ML AMP ONE (16:12)
[2021-06-13] MEDS ORDERED: FAMOTIDINE 20 MG/2 ML VIAL IV ONE (16:27)
[2021-06-13 16:28] LABS: Absolute Lymphocytes (CBC) 1.4 K/uL (0.7-4.9); Basophils % 0.1 % (0-1.3); Hematocrit 41.6 % (36.0-45.0); Lymphocytes % 9.6 % (15.3-44.8); MPV 9.3 fL (7.6-11.3); RBC Red Blood Cell Count 4.73 M/uL (3.86-4.86)
[2021-06-13 16:34] LABS: ALT/SGPT 35 U/L (12-78); AST/SGOT 15 U/L (15-37); Albumin 4.4 g/dL (3.4-5.0); Alkaline Phosphatase 70 U/L (45-117); BUN Blood Urea Nitrogen 8 mg/dL (7-18); Bicarbonate 25 mmol/L (21-32); Bilirubin Direct 0.1 mg/dL (0-0.2); Bilirubin Total 0.4 mg/dL (0.2-1.0); Glucose Level 100 mg/dL (74-106); Lipase 40 U/L (73-393); Potassium 3.4 mmol/L (3.5-5.1); Protein, Total 7.7 g/dL (6.4-8.2); Sodium Level 139 mmol/L (136-145)
[2021-06-13 17:25] LABS: Blood Morphology Comment NOT SEEN (NOT SEEN); Platelet Estimate ADEQ; White Blood Cell Scan OK (OK)
--- NOTE | 2021-06-13 18:57 | ER ---
Nurse's Notes [facility] [place] Name: Dafne Munguia Age: 21 yrs Sex: Female : 2000 Arrival Date: 06/13/2021 Time: 14:45 Bed 23 Private MD: Diagnosis: Vomiting of , unspecified Presentation: 06/13 15:25 Chief complaint: Patient states: 6hrs ago started vomiting with blot clots noted. kg Coronavirus screen: Client denies travel out of the [place] in the last 14 days. At this time, unable to obtain information related to travel outside the [place] At this time, the client does not indicate any symptoms associated with coronavirus-19. Ebola Screen: Patient negative for fever greater than or equal to 101.5 degrees Fahrenheit, and additional compatible Ebola Virus Disease symptoms Patient denies exposure to infectious person. Patient denies travel to an Ebola-affected area in the 21 days before illness onset. Initial Sepsis Screen: Does the patient meet any 2 criteria? No. Patient's initial sepsis screen is negative. Risk Assessment: Do you want to hurt yourself or someone else?. Onset of symptoms was June 13, 2021. 15:25 Method Of Arrival: Ambulatory kg 15:25 Acuity: [place] 3 kg 19:04 Initial Sepsis Screen: Does the patient have a suspected source of infection? No. ld1 Patient's initial sepsis screen is negative. 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 - Social history:: Smoking status: Patient denies any tobacco usage or history of. Screenin:54 Abuse screen: Denies threats or abuse. Denies injuries from another. Nutritional ld1 screening: No deficits noted. Tuberculosis screening: No symptoms or risk factors identified. Fall Risk None identified. Assessment: 15:54 General: Appears in no apparent distress. uncomfortable, Behavior is calm, cooperative, ld1 appropriate for age. General:. Pain: Complains of pain in right upper quadrant and left upper quadrant Pain does not radiate. Pain currently is 8 out of 10 on a pain scale. Quality of pain is described as stabbing, Pain began 1 day ago. Is intermittent. Neuro: Level of Consciousness is awake, alert, obeys commands, Oriented to person, place, time, situation. Cardiovascular: Capillary refill < 3 seconds Patient's skin is warm and dry. Respiratory: Airway is patent Respiratory effort is even, unlabored, Respiratory pattern is regular, symmetrical. GI: Abdomen is flat, non-distended. GI: Reports upper abdominal pain, nausea, vomiting. : No signs and/or symptoms were reported regarding the genitourinary system. EENT: No signs and/or symptoms were reported regarding the EENT system. Derm: No signs and/or symptoms reported regarding the dermatologic system. Musculoskeletal: No signs and/or symptoms reported regarding the musculoskeletal system. 16:47 Reassessment: Patient appears in no apparent distress at this time. Patient and/or ld1 family updated on plan of care and expected duration. Pain level reassessed. Patient is alert, oriented x 3, equal unlabored respirations, skin warm/dry/pink. Patient states feeling better. 17:56 Reassessment: Patient appears in no apparent distress at this time. Patient and/or ld1 family updated on plan of care and expected duration. Pain level reassessed. Patient is alert, oriented x 3, equal unlabored respirations, skin warm/dry/pink. Laying in bed sleeping. RR 17. 18:42 Reassessment: Patient appears in no apparent distress at this time. Patient and/or ld1 family updated on plan of care and expected duration. Pain level reassessed. Patient is alert, oriented x 3, equal unlabored respirations, skin warm/dry/pink. Vital Signs: 15:25 BP 141 / 95; Pulse 71; Resp 20; Pulse Ox 97% on R/A; Weight 70.31 kg (R); Height 5 ft. kg 6 in. (167.64 cm); Pain 10/10; 15:54 BP 136 / 90; Pulse 76; Resp 18; Pulse Ox 100% on R/A; ld1 16:47 BP 129 / 71; Pulse 68; Resp 18; Pulse Ox 100% ; ld1 17:56 BP 107 / 64; Pulse 56; Resp 17; Pulse Ox 100% on R/A; ld1 18:42 BP 129 / 68; Pulse 68; Resp 18; Pulse Ox 100% ; ld1 15:25 Body Mass Index 25.02 (70.31 kg, 167.64 cm) kg ED Course: 14:45 Patient arrived in ED. mr 15:17 Raheem Christian PA is PHCP. jr8 15:17 Valente Mccormack MD is Attending Physician. jr8 15:28 Triage completed. kg 15:28 Arm band placed on left wrist. kg 15:47 Marlena Zacarias, DRU is Primary Nurse. ld1 15:54 Patient has correct armband on for positive identification. Bed in low position. Call ld1 light in reach. Side rails up X2. Pulse ox on. NIBP on. Door closed. Noise minimized. Warm blanket given. 15:54 Inserted saline lock: 20 gauge in right antecubital area, using aseptic technique. ld1 Blood collected. 15:54 No provider procedures requiring assistance completed. ld1 19:04 IV discontinued, intact, bleeding controlled, No redness/swelling at site. ld1 Administered Medications: 15:56 Drug: Ringers - Lactated Ringers Solution 1000 ml Route: IV; Rate: bolus; Site: right ld1 antecubital; 17:00 Follow up: Response: No adverse reaction; IV Status: Completed infusion; IV Intake: ld1 1000ml 15:56 Drug: Promethazine 25 mg Route: IVP; Site: right antecubital; ld1 16:07 Follow up: Response: No adverse reaction ld1 16:07 Drug: Pepcid (famotidine) 40 mg Route: IVP; Site: right antecubital; ld1 16:08 Follow up: Response: No adverse reaction ld1 16:47 Drug: Ringers - Lactated Ringers Solution 1000 ml Route: IV; Rate: bolus; Site: right ld1 antecubital; 17:56 Follow up: Response: No adverse reaction; IV Status: Completed infusion; IV Intake: ld1 1000ml Intake: 17:00 IV: 1000ml; Total: 1000ml. ld1 17:56 IV: 1000ml; Total: 2000ml. ld1 Outcome: 18:56 Discharge ordered by . jr8 19:04 Discharged to home ambulatory. ld1 19:04 Condition: stable 19:04 Discharge instructions given to patient, Instructed on discharge instructions, follow up and referral plans. medication usage, Demonstrated understanding of instructions, follow-up care, medications. 19:04 Patient left the ED. ld1 Signatures: Chelsea Warren Josh, PA PA jr8 Marlena Zacarias, RN RN ld1 Gayathri Walker RN RN kg
--- NOTE | 2021-06-13 18:57 | EDPHYS ---
Physician Documentation [facility] Name: Dafne Munguia Age: 21 yrs Sex: Female : 2000 Arrival Date: 06/13/2021 Time: 14:45 Bed 23 Private MD: ED Physician Valente Mccormack HPI: 06/13 17:03 This 21 yrs old Female presents to ER via Ambulatory with complaints of jr8 , Vomiting. 17:03 The patient presents to the emergency department with nausea, vomiting. Onset: The jr8 symptoms/episode began/occurred gradually, 1 week(s) ago. Possible causes: . The symptoms are aggravated by food , The symptoms are alleviated by nothing. Associated signs and symptoms: Pertinent positives: abdominal pain. Severity of symptoms: At their worst the symptoms were moderate in the emergency department the symptoms are unchanged. The patient has experienced a previous episode. The patient has not recently seen a physician. This is a 21-year-old female patient who presented to the emergency room for persistent nausea vomiting secondary to . Patient stated that her last menstrual period was on 17 April. Patient stated that she has had this with her last as well. Has not been able to keep anything down has been projectile vomiting. Has to be on famotidine as well as she has gastritis with bleeding in the past secondary to her vomiting. Complaining of epigastric pain. No vaginal bleeding or discharge at this time.. 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 - Social history:: Smoking status: Patient denies any tobacco usage or history of. ROS: 17:03 Eyes: Negative for injury, pain, redness, and discharge, ENT: Negative for injury, jr8 pain, and discharge, Neck: Negative for injury, pain, and swelling, Cardiovascular: Negative for chest pain, palpitations, and edema, Respiratory: Negative for shortness of breath, cough, wheezing, and pleuritic chest pain, Back: Negative for injury and pain, MS/Extremity: Negative for injury and deformity, Skin: Negative for injury, rash, and discoloration, Neuro: Negative for headache, weakness, numbness, tingling, and seizure. 17:03 Abdomen/GI: Positive for abdominal pain, nausea and vomiting, Negative for diarrhea, constipation, abdominal cramps, abdominal distension. Exam: 17:03 Eyes: Pupils equal round and reactive to light, extra-ocular motions intact. Lids and jr8 lashes normal. Conjunctiva and sclera are non-icteric and not injected. Cornea within normal limits. Periorbital areas with no swelling, redness, or edema. ENT: Nares patent. No nasal discharge, no septal abnormalities noted. Tympanic membranes are normal and external auditory canals are clear. Oropharynx with no redness, swelling, or masses, exudates, or evidence of obstruction, uvula midline. Mucous membranes moist. Neck: Trachea midline, no thyromegaly or masses palpated, and no cervical lymphadenopathy. Supple, full range of motion without nuchal rigidity, or vertebral point tenderness. No Meningismus. Cardiovascular: Regular rate and rhythm with a normal S1 and S2. No gallops, murmurs, or rubs. Normal PMI, no JVD. No pulse deficits. Respiratory: Lungs have equal breath sounds bilaterally, clear to auscultation and percussion. No rales, rhonchi or wheezes noted. No increased work of breathing, no retractions or nasal flaring. Back: No spinal tenderness. No costovertebral tenderness. Full range of motion. Skin: Warm, dry with normal turgor. Normal color with no rashes, no lesions, and no evidence of cellulitis. MS/ Extremity: Pulses equal, no cyanosis. Neurovascular intact. Full, normal range of motion. Neuro: Awake and alert, GCS 15, oriented to person, place, time, and situation. Cranial nerves II-XII grossly intact. Motor strength 5/5 in all extremities. Sensory grossly intact. 17:03 Constitutional: The patient appears alert, awake, uncomfortable. 17:03 Abdomen/GI: Inspection: abdomen appears normal, Bowel sounds: active, all quadrants, Palpation: soft, in all quadrants, moderate abdominal tenderness, in the epigastric area, mass, is not appreciated, rebound tenderness, is not appreciated, voluntary guarding, is not appreciated, involuntary guarding, is not appreciated, no appreciated organomegaly, Indicators: McBurney's point is not tender, Donaldson's sign is negative, Rovsing's sign is negative, Liver: tenderness, is not appreciated. Vital Signs: 15:25 BP 141 / 95; Pulse 71; Resp 20; Pulse Ox 97% on R/A; Weight 70.31 kg (R); Height 5 ft. kg 6 in. (167.64 cm); Pain 10/10; 15:54 BP 136 / 90; Pulse 76; Resp 18; Pulse Ox 100% on R/A; ld1 16:47 BP 129 / 71; Pulse 68; Resp 18; Pulse Ox 100% ; ld1 17:56 BP 107 / 64; Pulse 56; Resp 17; Pulse Ox 100% on R/A; ld1 18:42 BP 129 / 68; Pulse 68; Resp 18; Pulse Ox 100% ; ld1 15:25 Body Mass Index 25.02 (70.31 kg, 167.64 cm) kg MDM: 15:46 Patient medically screened. [facility] 18:21 Data reviewed: vital signs, nurses notes, lab test result(s), and as a result, I will jr8 discharge patient. Data interpreted: Pulse oximetry: on room air is 100 %. Interpretation: normal. Counseling: I had a detailed discussion with the patient and/or guardian regarding: the historical points, exam findings, and any diagnostic results supporting the discharge/admit diagnosis, lab results, the need for outpatient follow up, a family practitioner, to return to the emergency department if symptoms worsen or persist or if there are any questions or concerns that arise at home. Response to treatment: the patient's symptoms have markedly improved after treatment, patient is well hydrated. ED course: Patient doing markedly better. Patient no longer dry heaving or vomiting. Patient has had 2 L of fluid. Patient needs to follow-up with obstetrics and gynecology. We will put patient on Reglan. Knows to come back if worse.. 08 15:46 Order name: Basic Metabolic Panel [facility] 06/13 15:46 Order name: CBC with Diff [facility] 06/13 15:46 Order name: Hepatic Function [facility] 06/13 15:46 Order name: Lipase [facility] 06/13 15:47 Order name: Basic Metabolic Panel; Complete Time: 17:02 [facility] 06/13 15:47 Order name: Liver (Hepatic) Function; Complete Time: 17:02 [facility] 06/13 15:47 Order name: Lipase; Complete Time: 17:02 [facility] 06/13 15:47 Order name: CBC with Automated Diff; Complete Time: 17:28 [facility] 06/13 16:03 Order name: Urine Dipstick-Ancillary; Complete Time: 16:04 [facility] 06/13 16:05 Order name: Urine --Ancillary (enter results); Complete Time: 17:02 06/13 17:25 Order name: CBC Smear Scan; Complete Time: 17:28 [facility] 06/13 15:46 Order name: IV Saline Lock; Complete Time: 15:56 [facility] 06/13 15:46 Order name: Labs collected and sent; Complete Time: 15:56 [facility] 06/13 15:46 Order name: Urine Dipstick-Ancillary (obtain specimen); Complete Time: 16:07 [facility] 06/13 15:46 Order name: Urine Test (obtain specimen); Complete Time: 16:07 jr Administered Medications: 15:56 Drug: Ringers - Lactated Ringers Solution 1000 ml Route: IV; Rate: bolus; Site: right ld1 antecubital; 17:00 Follow up: Response: No adverse reaction; IV Status: Completed infusion; IV Intake: ld1 1000ml 15:56 Drug: Promethazine 25 mg Route: IVP; Site: right antecubital; ld1 16:07 Follow up: Response: No adverse reaction ld1 16:07 Drug: Pepcid (famotidine) 40 mg Route: IVP; Site: right antecubital; ld1 16:08 Follow up: Response: No adverse reaction ld1 16:47 Drug: Ringers - Lactated Ringers Solution 1000 ml Route: IV; Rate: bolus; Site: right ld1 antecubital; 17:56 Follow up: Response: No adverse reaction; IV Status: Completed infusion; IV Intake: ld1 1000ml Disposition Summary: 06/13/21 18:56 Discharge Ordered Location: Home [facility] Problem: new jr8 Symptoms: have improved jr8 Condition: Stable jr8 Diagnosis - Vomiting of , unspecified jr8 Followup: jr8 - With: Private Physician - When: 2 - 3 days - Reason: Recheck today's complaints, Continuance of care, Re-evaluation by your physician Discharge Instructions: - Discharge Summary Sheet jr8 - Hyperemesis Gravidarum jr8 - Morning Sickness jr8 Forms: - Medication Reconciliation Form jr8 - Thank You Letter jr8 - Antibiotic Education jr8 - Prescription Opioid Use jr8 Prescriptions: - Reglan 10 mg Oral Tablet - take 1 tablet by ORAL route every 6 hours . take 30 minutes before meals and at jr8 bedtime; 40 tablet; Refills: 0, Product Selection Permitted Addendum: 06/14/2021 19:50 Co-signature as Attending Physician, Valente Mccormack MD I agree with the assessment and r n plan of care. Attestation: The patient's history, exam findings, diagnostics, and a summary of any interventions or procedures was reviewed in detail with Raheem MEHTA. Signatures: Dispatcher [employer] EDValente Bruner MD MD rn Roszak, Josh, PA PA jr8 Marlena Zacarias RN RN ld1 Gayathri Walker RN RN kg
[2021-06-13 19:20] VITALS: O2SAT 100
[2021-06-13 19:24] VITALS: BP 129/68
== END 2021-06-13 19:04 | disposition home or self-care (01) ==
LOC: ER 14:38
DX: O21.9 Vomiting of pregnancy, unspecified (principal); Z3A.00 Weeks of gestation of pregnancy not specified
CPT/HCPCS: 85025; 80048; 36415; 81025; 80076; 81003; 83690; J2550; J7120 ×2; 96365; 96366; 96375; 99284

== ENCOUNTER 2021-11-23 18:35 | Emergency (ER) | payer OTHER ==
--- OUTSIDE RECORDS SUMMARY | 2021-11-23 18:39 | XMS REPORT | Continuity of Care Document ---
:2000 Author Organization [facility] t Address [address] [place] [address] Care Team Providers Name Role Phone PCP, DOES NOT HAVE A Primary Care Physician Unavailable ANNIE CASPER Attending Clinician Unavailable EDURADO Attending Clinician Unavailable Eduardo ORDAZ Attending Clinician Annie Casper MD Attending Clinician Doctor Unassigned, Name Attending Clinician Unavailable Ultrasound, Mfm Attending Clinician Unavailable Jodie Turner MD Attending Clinician JODIE TURNER Attending Clinician Unavailable Cristobal AMAYA, L Attending Clinician KADEN Attending Clinician Unavailable KADEN Admitting Clinician Unavailable Payers Payer Name Policy Type Policy Number Effective Date Expiration Date Lizet ALCALA II [id number] 2020 00:00:00 [facility] [id number] 2021 CHOICE MEDICAID 00:00:[place] [id number] 2020 ADVANTAGE (HMO) 00:00:00 Advance Directives Directive Decision Effective Termination Comments Source Date Date Healthcare Agents on N/A [facility] FileNameRelationProMedica [facility] HospitalealOd[facility] Agent Medical RelationshipCommunicationWilmington Branch ChamblessMotherHealth Care [phone] (Mobile) Problems Condition Condition Condition Status Onset Resolution Last Treating Co mments Source Name Details Category Date Date Treatment Clinician Date Dehydratio Dehydratio Disease Active 2020-11 U nivers n n 0-18 ity of 00:00: [place] 00 [facility] Marijuana Marijuana Disease Active 2020-11 Uni vers use use 0-07 ity of 00:00: [address] High-risk High-risk Disease Active 2020-11 Uni vers 0-07 [place] 00 [facility] Branch Gastroesop Gastroesop Disease Active U nivers hageal hageal 9-10 ity of reflux reflux 00:00: [place] disease, disease, 00 Medica l esophagiti esophagiti Br anch s presence s presence not not specified specified Nausea and Nausea and Disease Active U nivers vomiting vomiting 3-22 ity of during during 00:00: [place] 00 [facility] prior to prior to Branch 22 weeks 22 weeks gestation gestation Family Family Disease Active Univers history of history of 3-22 it y of Down Down 00:00: [place] syndrome syndrome 00 Medica l Branch Allergies, Adverse Reactions, Alerts Allergy Allergy Status Severity Reaction(s) Onset Inactive Treating Comm ents Source Name Type Date Date Clinician Naeem Propensi Active Hives Univer s andry ty to 1-28 ity of Ac-Zinc adverse 00:00: [place] Undecyle reaction 00 Medica l na s Branch UNDECYLE DRUG Active Hives Univers ANDRY 1-28 ity of AC-ZINC 00:00: [place] UNDECYLE 00 Medical Branch Social History Social Habit Start Date Stop Date Quantity Comments Source ASSERTION 2021-05-11 [facility] 00:00:00 [facility] Exposure to Not sure [facility] SARS-CoV-2 [facility] (event) [place] Alcohol intake 2021-11-23 2021-11-23 Ex-drinker [facility] 00:00:00 00:00:00 (finding) [facility] Sex Assigned At 2000 2000 Universit y of 00:00:00 00:00:00 [facility] Smoking Status Start Date Stop Date Source Never smoker [facility] Medications Ordered Filled Start Stop Current Ordering Indication Dosage Frequency Signature Comments Components Source Medication Medication Date Date Medication? Clinician (SIG) Name Name famotidine 2020-11 Inject Univ ers in NS 0.5 2-06 12-06 intravenou ity of mg/mL 14:40: 00:00 sly. [place] 40 :00 Medical Branch famotidine 2020-11 Yes [id number] 20mg Take 1 U nivers 20 mg 2-06 tablet by ity of tablet 00:00: mouth 2 [place] 00 (two) Medical times Branch daily. famotidine 2020-11 Yes [id number] 20mg Take 1 U nivers 20 mg 2-06 tablet by ity of tablet 00:00: mouth 2 [place] 00 (two) Medical times Branch daily. famotidine 2020-11 Yes [id number] 20mg Take 1 U nivers 20 mg 2-06 tablet by ity of tablet 00:00: mouth 2 [place] (two) Medical times Branch daily. famotidine 2020-11 Yes [id number] 20mg Take 1 U nivers 20 mg 2-06 tablet by ity of tablet 00:00: mouth 2 [place] 00 (two) Medical times Branch daily. famotidine 2020-11 Yes [id number] 20mg Take 1 U nivers 20 mg 2-06 tablet by ity of tablet 00:00: mouth 2 [place] (two) Medical times Branch daily. proMETHazin 2020-11 Yes [id number] 25mg Insert 1 Univers e 25 mg 0-18 Suppositor ity of suppository 00[place]00[place] rectum Medical every 4 Branch (four) hours as needed for Nausea and Vomiting (N/V). proMETHazin 2020-11 Yes [id number] 25mg Insert 1 Univers e 25 mg 0-18 Suppositor ity of suppository 00:00: [place] rectum Medical every 4 Branch (four) hours as needed for Nausea and Vomiting (N/V). proMETHazin 2020-11 Yes [id number] 25mg Insert 1 Univers e 25 mg 0-18 Suppositor ity of suppository 00:00: [place] rectum Medical every 4 Branch (four) hours as needed for Nausea and Vomiting (N/V). proMETHazin 2020-11 Yes [id number] 25mg Insert 1 Univers e 25 mg 0-18 Suppositor ity of suppository 00:00: [place] 00 rectum Medical every 4 Branch (four) hours as needed for Nausea and Vomiting (N/V). proMETHazin 2020-11 Yes [id number] 25mg Insert 1 Univers e 25 mg 0-18 Suppositor ity of suppository 00:00: [place] 00 rectum Medical every 4 Branch (four) hours as needed for Nausea and Vomiting (N/V). proMETHazin 2020-11 Yes [id number] 25mg Insert 1 Univers e 25 mg 0-18 Suppositor ity of suppository 00:00: [place] 00 rectum Medical every 4 Branch (four) hours as needed for Nausea and Vomiting (N/V). proMETHazin 2020-11 Yes [id number] 25mg Insert 1 Univers e 25 mg 0-18 Suppositor ity of suppository 00:00: [place] 00 rectum Medical every 4 Branch (four) hours as needed for Nausea and Vomiting (N/V). proMETHazin 2020-11 Yes [id number] 25mg Take 1 Univers e 25 mg 0-07 tablet by ity of tablet 00:00: mouth [place] 00 every 4 Medical (four) Branch hours as needed for Nausea and Vomiting (N/V). proMETHazin 2020-11 Yes [id number] 25mg Take 1 Univers e 25 mg 0-07 tablet by ity of tablet 00:00: mouth [place] 00 every 4 Medical (four) Branch hours as needed for Nausea and Vomiting (N/V). proMETHazin 2020-11 Yes [id number] 25mg Take 1 Univers e 25 mg 0-07 tablet by ity of tablet 00:00: mouth [place] 00 every 4 Medical (four) Branch hours as needed for Nausea and Vomiting (N/V). proMETHazin 2020-11 Yes [id number] 25mg Take 1 Univers e 25 mg 0-07 tablet by ity of tablet 00:00: mouth [place] 00 every 4 Medical (four) Branch hours as needed for Nausea and Vomiting (N/V). proMETHazin 2020-11 Yes [id number] 25mg Take 1 Univers e 25 mg 0-07 tablet by ity of tablet 00:00: mouth [place] 00 every 4 Medical (four) Branch hours as needed for Nausea and Vomiting (N/V). proMETHazin 2020-11 Yes [id number] 25mg Take 1 Univers e 25 mg 0-07 tablet by ity of tablet 00:00: mouth [place] 00 every 4 Medical (four) Branch hours as needed for Nausea and Vomiting (N/V). proMETHazin 2020-11 Yes [id number] 25mg Take 1 Univers e 25 mg 0-07 tablet by ity of tablet 00:00: mouth [place] 00 every 4 Medical (four) Branch hours as needed for Nausea and Vomiting (N/V). proMETHazin 2020-11 Yes [id number] 25mg Take 1 Univers e 25 mg 0-07 tablet by ity of tablet 00:00: mouth [place] 00 every 4 Medical (four) Branch hours as needed for Nausea and Vomiting (N/V). [id number] 2020-0 Yes Take by Un ewa 3-dha-epa-f 8-11 mouth. ity of luis oil 15:05: [place] ( 28 Medical GUMMY) 400 Branch mcg-35 mg -25 mg-5 mg Chew [id number] 2020-0 Yes Take by Un ewa 3-dha-epa-f 8-11 mouth. ity of luis oil 15:05: [place] ( 28 Medical GUMMY) 400 Branch mcg-35 mg -25 mg-5 mg Chew [id number] 2020-0 Yes Take by Un ewa 3-dha-epa-f 8-11 mouth. ity of luis oil 15:05: [place] ( 28 Medical GUMMY) 400 Branch mcg-35 mg -25 mg-5 mg Chew [id number] 2020-0 Yes Take by Un ewa 3-dha-epa-f 8-11 mouth. ity of luis oil 15:05: [place] ( 28 Medical GUMMY) 400 Branch mcg-35 mg -25 mg-5 mg Chew [id number] 2020-0 Yes Take by Un ewa 3-dha-epa-f 8-11 mouth. ity of luis oil 15:05: [place] ( 28 Medical GUMMY) 400 Branch mcg-35 mg -25 mg-5 mg Chew [id number] 2020-0 Yes Take by Un ewa 3-dha-epa-f 8-11 mouth. ity of luis oil 15:05: [place] ( 28 Medical GUMMY) 400 Branch mcg-35 mg -25 mg-5 mg Chew [id number] Yes Take by Un ewa 3-dha-epa-f 8-11 mouth. ity of luis oil 15:05: [place] ( 28 Medical GUMMY) 400 Branch mcg-35 mg -25 mg-5 mg Chew [id number] Yes Take by Un ewa 3-dha-epa-f 8-11 mouth. ity of luis oil 15:05: [place] ( 28 Medical GUMMY) 400 Branch mcg-35 mg -25 mg-5 mg Chew doxylamine- Yes [id number] 1{tbl} Take 1 Univers pyridoxine, 8-11 tablet by ity of vit B6, 00:00: mouth [place] (DICLE) 00 SEE-INSTRU Med ical 10-10 mg CTIONS. Branch per tablet proMETHazin Yes [id number] 25mg Insert 1 Univers e 25 mg 8-11 Suppositor ity of suppository 00:00: [place] 00 rectum Medical every 4 Branch (four) hours as needed for N/V unresponsi ve to oral antiemetic s. doxylamine- Yes [id number] 1{tbl} Take 1 Univers pyridoxine, 8-11 tablet by ity of vit B6, 00:00: mouth [place] (DICLEGIS) 00 SEE-INSTRU Med ical 10-10 mg CTIONS. Branch per tablet proMETHazin Yes [id number] 25mg Insert 1 Univers e 25 mg 8-11 Suppositor ity of suppository 00:00: [place] 00 rectum Medical every 4 Branch (four) hours as needed for N/V unresponsi ve to oral antiemetic s. doxylamine- Yes [id number] 1{tbl} Take 1 Univers pyridoxine, 8-11 tablet by ity of vit B6, 00:00: mouth [place] (DICLEGIS) 00 SEE-INSTRU Med ical 10-10 mg CTIONS. Branch per tablet proMETHazin Yes [id number] 25mg Insert 1 Univers e 25 mg 8-11 Suppositor ity of suppository 00:00: [place] 00 rectum Medical every 4 Branch (four) hours as needed for N/V unresponsi ve to oral antiemetic s. doxylamine- 2020- No [id number] 1{tbl} Take 1 Univers pyridoxine, 06-14 tablet by it y of vit B6, 00:00: 00:00 mouth [place] (DICLEGIS) 00 :00 SEE-INSTRU Med ical 10-10 mg CTIONS. Branch per tablet proMETHazin 2020- No [id number] 25mg Insert 1 Univers e 25 mg 06-14 Suppositor ity o f suppository 00:00: 00:00 y into [place] as 00 :00 rectum Medical every 4 Branch (four) hours as needed for N/V unresponsi ve to oral antiemetic s. Immunizations Ordered Filled Immunization Date Status Comments Sourc e Immunization Name Name TDAP 2021-11-23 Completed University of 00:00:00 [facility] MMR 2018-08-22 Completed University of 00:00:00 [facility] MMR 2018-08-22 Completed University of 00:00:00 [facility] MMR 2018-08-22 Completed University of 00:00:00 [facility] MMR 2018-08-22 Completed University of 00:00:00 [facility] MMR 2018-08-22 Completed University of 00:00:00 [facility] MMR 2018-08-22 Completed University of 00:00:00 [facility] MMR 2018-08-22 Completed University of 00:00:00 [facility] MMR 2018-08-22 Completed University of 00:00:00 [facility] Influenza Virus 2018-08-07 Completed Universit y of Vaccine Quad .5 mL 00:00:00 [facility] IM 6+ MO Branch Influenza Virus 2018-08-07 Completed Universit y of Vaccine [place] .5 mL 00:00:00 [place] [facility] IM 6+ MO Branch Influenza Virus 2018-08-07 Completed Universit y of Vaccine [place] .5 mL 00:00:00 [place] [facility] IM 6+ MO Branch Influenza Virus 2018-08-07 Completed Universit y of Vaccine [place] .5 mL 00:00:00 [place] [facility] IM 6+ MO Branch Influenza Virus 2018-08-07 Completed Universit y of Vaccine [place] .5 mL 00:00:00 [facility] IM 6+ MO Branch Influenza Virus 2018-08-07 Completed Universit y of Vaccine [place] .5 mL 00:00:00 [place] [facility] IM 6+ MO Branch Influenza Virus 2018-08-07 Completed Universit y of Vaccine [place] .5 mL 00:00:00 [place] [facility] IM 6+ MO Branch Influenza Virus 2018-08-07 Completed Universit y of Vaccine [place] .5 mL 00:00:00 [facility] IM 6+ MO Branch TDAP 2018-06-18 Completed University of 00:00:00 [place] [facility] TDAP 2018-06-18 Completed University of 00:00:00 [place] [facility] TDAP 2018-06-18 Completed University of 00:00:00 [place] [facility] TDAP 2018-06-18 Completed University of 00:00:00 [place] [facility] TDAP 2018-06-18 Completed University of 00:00:00 [place] [facility] TDAP 2018-06-18 Completed University of 00:00:00 [place] [facility] TDAP 2018-06-18 Completed University of 00:00:00 [place] [facility] [place] TDAP 2018-06-18 Completed University of 00:00:00 [facility] Vital Signs Vital Name Observation Time Observation Value Comments Source Diastolic blood 2021-11-23 21:50:00 77 mm[Hg] Unive rsity of pressure [facility] Heart rate 2021-11-23 21:50:00 93 /min [facility] Body temperature 2021-11-23 21:50:[address] [facility] [place] [facility] Respiratory rate 2021-11-23 21:50:00 18 /min [facility] Body height 2021-11-23 21:50:00 167.6 cm [facility] Body weight 2021-11-23 21:50:00 77.111 kg [facility] BMI 2021-11-23 21:50:00 27.44 kg/m2 [facility] Systolic blood 2021-11-23 21:50:00 129 mm[Hg] Univer sity of pressure [facility] Systolic blood 2021-10-09 19:16:00 118 mm[Hg] Univer sity of pressure [facility] Diastolic blood 2021-10-09 19:16:00 64 mm[Hg] Unive rsity of pressure [facility] Heart rate 2021-10-09 19:16:00 109 /min [facility] Body temperature 2021-10-09 19:16:[address] [facility] [place] [facility] Respiratory rate 2021-10-09 19:16:00 18 /min [facility] [place] [facility] Body height 2021-10-09 19:16:00 167.6 cm Universi ty of [facility] Body weight 2021-10-09 19:16:00 70.761 kg Universi ty of [facility] BMI 2021-10-09 19:16:00 25.18 kg/m2 Universi ty of [facility] Systolic blood 2021-09-11 19:42:00 129 mm[Hg] Univer sity of pressure [facility] Diastolic blood 2021-09-11 19:42:00 76 mm[Hg] [facility] Heart rate 2021-09-11 19:42:00 79 /min Universi ty [facility] Body temperature 2021-09-11 19:42:00 37.06 Velma [facility] Respiratory rate 2021-09-11 19:42:00 18 /min [facility] [place] [facility] Body height 2021-09-11 19:42:00 162.6 cm Universi ty of [facility] Body weight 2021-09-11 19:42:00 63.504 kg Universi ty [facility] BMI 2021-09-11 19:42:00 24.03 kg/m2 Universi ty [facility] Procedures Procedure Date / Time Performing Clinician Source Performed TDAP VACCINE, >11 YRS, 2021-11-23 21:53:37 Sirena Baptiste [facility] POCT URINALYSIS W/O 2021-11-23 00:00:00 Sirena Baptiste [facility] DME/SUPPLY JUSTIFICATION 2021-10-25 06:01:00 Doctor Unassigned, No [facility] POCT URINALYSIS W/O 2021-10-09 00:00:00 Chuck Casper [facility] POCT URINALYSIS W/O 2021-09-11 00:00:00 Sirena Baptiste [facility] SCANNED LAB RESULTS 2021-08-10 05:01:00 Doctor Unassigned, No [facility] [place] [facility] Branch Encounters Start End Encounter Admission Attending Care Care Encounter Source Date/Time Date/Time Type Type Clinicians Facility Department ID 2021-12-07 2021-12-07 Outpatient R CHUCK CASPER [facility] [id number] Univers 10:45:00 10:45:00 [id number] ity [facility] 2021-11-28 2021-11-28 Outpatient R [facility] [id number] Univers 09:00:00 09:00:00 ity [facility] 2021-11-28 2021-11-28 Outpatient R [facility] [id number] Univers 09:00:00 09:00[id number] 2021-11-23 2021-11-23 Outpatient R EDUARDO [facility] [id number] Univers 15:15:00 16:03:20 SIRENA [facility] [place] [facility] 2021-11-23 2021-11-23 [facility] [id number] Univers 15:15:00 16:03:20 Sirena ALANIS [id number] ity of Visit [place] [id number] Randell LORA [phone] Ut dical [address] 2021-11-23 2021-11-23 Outpatient Gala BAPTISTE [facility] [id number] Univers 15:15:00 15:15:00 [facility] [id number] [facility] 2021-11-06 2021-11-06 Outpatient R EDUARDO [facility] [id number] Univers 10:15:00 10:15:00 [facility] [id number] [facility] 2021-11-06 2021-11-06 Outpatient Gala [facility] [id number] Univers 09:15:00 09:15:00 SIRENA [facility] [place] [facility] 2021-10-31 2021-10-31 Telephone Chuck Casper [facility] [id number] Univers 00:00:00 00:00:00 Annie ALANIS [id number] i ty of [place] [id number] PROF[place] [phone] Ut dical [address] 2021-10-25 2021-10-25 Case Chuck Casper [facility] [id number] Univers 00:00:00 00:00:00 Management Cam DESIREE [id number] ity of [place] [id number] [id number] Ut dic[address] 2021-10-25 2021-10-25 Orders Doctor BERTA [id number] Univers 00:00:00 00:00:00 Only Unassigned, MICHELLE [id number] ity of [place] [facility] [id number] Sebastien as [id number] [address] 2021-10-09 2021-10-09 Routine Chuck Casper [facility] [id number] Univers 13:01:24 13:31:08 Annie IVELISSEGIFTY [id number] ity of [place] [id number] PROFESS[place] [id number] [address] 2021-10-09 2021-10-09 Outpatient R CHUCK CASPER [facility] [id number] Univers 13:00:00 13:31:08 ity of [facility] 2021-09-12 2021-09-12 Prize Jacker Ultrasound, Arcenio [facility] [id number] Univers 14:33:50 15:24:56 Visit Chuck Casper [id number] ity of [place] Aj Turner [place] 4.2.7.2. 686 [place] PROFESSIO [id number] [address] 2021-09-12 2021-09-12 Outpatient P JODIE [facility] [id number] Univers 14:30:00 15:24:56 AMALIA it y of AJ Hinds [facility] 2021-09-11 2021-09-11 [facility] [id number] Univers 13:11:00 13:57:28 Sirena ALANIS [id number] ity of Visit [place] [id number] Randell s PROFESSIO [id number] Ut dical [address] 2021-09-07 2021-09-07 Outpatient R [facility] [id number] Univers 08:15:00 08:15:00 ity of [facility] 2021-08-10 2021-08-10 Orders Doctor BERTA [id number] Univers 00:00:00 00:00:00 Only Unassigned, MICHELLE [id number] ity of [place] [facility] [id number] Sebast[place] as [phone] [address] 2020-12-21 2020-12-21 Case Adum, [facility] [id number] 00:00:00 00:00:00 Management Lottie Alanis [id number] [place] [id number] Professio [id number] [address] 2020-12-16 2020-12-16 Office Adum, [facility] [id number] 11:14:06 12:17:33 Visit Lottie Alanis [id number] [place] [id number] Professio [phone] [address] 2020-12-13 2020-12-13 Outpatient AYAAN_KAYLEY [facility] [id number] [place] 02:18:00 02:18:00 SSA [id number] [facility] Results Test Description Test Time Test Comments Results Result Comments Source POCT URINALYSIS W/O SPECIFIC GRAVITY 2021-11-23 21:57:00 Test Item Value Reference Range Interpretation Comme nts POCT PH U (test code = 3254) n/a 5-8 POCT U LEUK EST (test code = 3263) n/a Negative - Negative POCT U NIT (test code = 3262) n/a Negative - Negative POCT U PROT (test code = 3259) neg Negative - Negative POCT U GLU (test code = 3256) neg Negative - Negative POCT U KETONE (test code = 3258) n/a Negative - Negative POCT U BLD (test code = 3257) n/a Negative - Negative [facility] SPECIFIC [id number] 19:19:00 Test Item Value Reference Range Interpretation Comments POCT PH U (test code = 3254) n/a 5-8 POCT U LEUK EST (test code = 3263) n/a Negative - Negative POCT U NIT (test code = 3262) n/a Negative - Negative POCT U PROT (test code = 3259) neg Negative - Negative POCT U GLU (test code = 3256) neg Negative - Negative POCT U KETONE (test code = 3258) n/a Negative - Negative POCT U BLD (test code = 3257) n/a Negative - Negative Lab Interpretation (test code = Normal 33879-5) [facility]/O SPECIFIC [id number] 19:44:00 Test Item Value Reference Range Interpretation Comments POCT PH U (test code = 3254) n/a 5-8 POCT U LEUK EST (test code = 3263) n/a Negative - Negative POCT U NIT (test code = 3262) n/a Negative - Negative POCT U PROT (test code = 3259) neg Negative - Negative POCT U GLU (test code = 3256) neg Negative - Negative POCT U KETONE (test code = 3258) n/a Negative - Negative POCT U BLD (test code = 3257) n/a Negative - Negative [facility]
[2021-11-23 19:53] LABS: SARS-COV-2 RT PCR POSITIVE (NEGATIVE)
--- NOTE | 2021-11-23 19:58 | ER ---
Nurse's Notes [facility] Name: Dafne Munguia Age: 21 yrs Sex: Female : 2000 Arrival Date: 11/23/2021 Time: 18:37 Bed 4 Private MD: Diagnosis: SARS-associated coronavirus as the cause of diseases classified elsewhere Presentation: 11/23 18:47 Chief complaint: Patient states: sore throat and [place]. has COVID. Coronavirus [facility] screen: Client denies travel out of the [place] in the last 14 days. Client presents with at least one sign or symptom that may indicate coronavirus-19. Standard/surgical mask placed on the client. Ebola Screen: Patient denies travel to an Ebola-affected area in the 21 days before illness onset. Initial Sepsis Screen: Does the patient meet any 2 criteria? No. Patient's initial sepsis screen is negative. Does the patient have a suspected source of infection? No. Patient's initial sepsis screen is negative. Risk Assessment: Do you want to hurt yourself or someone else? Patient reports no desire to harm self or others. Onset of symptoms was November 21, 2021. 18:47 Method Of Arrival: Ambulatory [facility] 18:47 Acuity: [place] 4 6 Triage Assessment: 18:51 General: Appears in no apparent distress. comfortable, Behavior is calm, cooperative. 6 Pain: Complains of pain in face. EENT: No deficits noted. Eyes Sclera/Cornea are clear in outer aspect of conjuctiva of right eye, inner aspect of conjuctiva of right eye, outer aspect of conjuctiva of left eye and inner aspect of conjunctiva of left eye Throat is clear is pink. Respiratory: No deficits noted. 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 - Social history:: Smoking status: Patient denies any tobacco usage or history of. Patient/guardian denies using alcohol, street drugs, IV drugs, caffeine, over the counter diet medications, tobacco products. Screenin:51 Abuse screen: Denies threats or abuse. Nutritional screening: No deficits noted. [facility] Tuberculosis screening: No symptoms or risk factors identified. Fall Risk None identified. Assessment: 18:52 Respiratory: Respiratory effort is even, unlabored. 6 20:19 General: Appears in no apparent distress. Behavior is cooperative. Neuro: No deficits [facility] noted. Level of Consciousness is awake, alert, Oriented to person, place, time, situation. Respiratory: Airway is patent Trachea midline Respiratory effort is even, unlabored, Breath sounds are clear bilaterally. Vital Signs: 18:47 BP 126 / 85; Pulse 88; Resp 20; Temp 98.9(O); Pulse Ox 100% on R/A; Weight 77.11 kg; [facility] Height 5 ft. 6 in. (167.64 cm); 20:20 BP 121 / 82; Pulse 85; Resp 18; Pulse Ox 100% ; 5 18:47 Body Mass Index 27.44 (77.11 kg, 167.64 cm) [facility] Vitals: 20:15 Heart Tones 165. 5 ED Course: 18:37 Patient arrived in ED. mr 18:39 Mark Gunn PA is PHCP. cp 18:39 Mark Oneill MD is Attending Physician. cp 18:48 Arm band placed on Patient placed in an exam room, on a stretcher. [facility] 18:50 Triage completed. [facility] 18:52 Bed in low position. Call light in reach. [facility] 19:26 Lorena Banuelos, DRU is Primary Nurse. 5 19:39 COVID-19/FLU A+B (Document "Date of Onset" if Symptomatic) Sent. 5 19:39 Strep Sent. 5 20:20 No provider procedures requiring assistance completed. Patient did not have IV access 5 during this emergency room visit. Administered Medications: No medications were administered Outcome: 19:57 Discharge ordered by . cp 20:21 Discharged to home ambulatory. 5 20:21 Condition: good 20:21 Discharge instructions given to patient, Instructed on discharge instructions, follow up and referral plans. medication usage, Demonstrated understanding of instructions, follow-up care, medications, Prescriptions given X 1. 20:22 Patient left the ED. 5 Signatures: Chelsea Warren mr Mark Gunn PA PA Ramiro Montero RN RN ll1 Alia Nation, RN RN jh6 Lorena Banuelos, RN RN sm5
--- NOTE | 2021-11-23 19:58 | EDPHYS ---
Physician Documentation [facility] Name: Dafne Munguia Age: 21 yrs Sex: Female : 2000 Arrival Date: 11/23/2021 Time: 18:37 Bed 4 Private MD: DUSTY Physician Mark Oneill HPI: 11/23 19:00 This 21 yrs old Female presents to ER via Ambulatory with complaints of Sore Throat, cp Headache, Cough. 19:00 The patient presents with sore throat. The patient describes throat pain as constant. cp 19:00 Onset: The symptoms/episode began/occurred 2 day(s) ago. cp 19:00 Associated signs and symptoms: Pertinent positives: cough, headache, Pertinent cp negatives diarrhea, fever, vomiting. Patient reports she is 30 weeks and tested positive for COVID-19 1 week ago. Patient reports she is not vaccinated against COVID-19. 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 Historical: - Allergies: 18:50 antifungal medication; [facility] 18:50 Sulfa (Sulfonamide Antibiotics); [facility] - PMHx: 18:50 Anemia; Hernia; tumor; [facility] - PSHx: 18:50 hernia; left arm; Appendectomy; [facility] - Immunization history:: Adult Immunizations up to date, Client reports having NOT received the Covid vaccine. - Social history:: Smoking status: Patient denies any tobacco usage or history of. Patient/guardian denies using alcohol, street drugs, IV drugs, caffeine, over the counter diet medications, tobacco products. ROS: 19:05 Constitutional: Negative for body aches, chills, fever, poor PO intake. cp 19:05 Eyes: Negative for injury, pain, redness, and discharge. cp 19:05 ENT: Positive for sore throat, Negative for drainage from ear(s), ear pain, difficulty swallowing, difficulty handling secretions. 19:05 Cardiovascular: Negative for chest pain. 19:05 Respiratory: Positive for cough, with no reported sputum, Negative for shortness of breath, wheezing. 19:05 Abdomen/GI: Negative for vomiting, diarrhea, constipation. 19:05 Neuro: Positive for headache, Negative for altered mental status, weakness. 19:05 All other systems are negative. Exam: 19:10 Constitutional: The patient appears in no acute distress, alert, awake, non-toxic, well cp developed, well nourished. 19:10 Head/Face: Normocephalic, atraumatic. cp 19:10 Eyes: Periorbital structures: appear normal, Conjunctiva: normal, no exudate, no injection, Lids and lashes: appear normal, bilaterally. 19:10 ENT: External ear(s): are unremarkable, Ear canal(s): are normal, clear, TM's: dullness, bilaterally, Nose: is normal, Mouth: Lips: moist, Oral mucosa: moist, Posterior pharynx: Airway: no evidence of obstruction, patent, Tonsils: no enlargement, no exudate, erythema, that is mild, exudate, is not appreciated, Voice: is normal. 19:10 Neck: ROM/movement: is normal, is supple, without pain, no range of motions limitations. 19:10 Chest/axilla: Inspection: normal. 19:10 Cardiovascular: Rate: normal. 19:10 Respiratory: the patient does not display signs of respiratory distress, Respirations: normal, no use of accessory muscles, no retractions, labored breathing, is not present, Breath sounds: are clear throughout, no decreased breath sounds, no stridor, no wheezing. 19:10 Abdomen/GI: Inspection: gravid appearance, is noted. Vital Signs: 18:47 BP 126 / 85; Pulse 88; Resp 20; Temp 98.9(O); Pulse Ox 100% on R/A; Weight 77.11 kg; 6 Height 5 ft. 6 in. (167.64 cm); 20:20 BP 121 / 82; Pulse 85; Resp 18; Pulse Ox 100% ; sm5 18:47 Body Mass Index 27.44 (77.11 kg, 167.64 cm) [facility] MDM: 18:40 Patient medically screened. [facility] 19:00 Differential diagnosis: bronchitis, group A strep tonsillitis, pharyngitis, cp tonsillitis, upper respiratory infection, uvulitis, pneumonia, COVID-19, influenza. 19:56 Data reviewed: vital signs, nurses notes, lab test result(s), and as a result, I will cp discharge patient. 11/23 18:49 Order name: COVID-19/FLU A+B (Document "Date of Onset" if Symptomatic) cp 11/23 18:49 Order name: Strep cp 11/23 18:50 Order name: COVID-19/FLU A+B; Complete Time: 19:55 EDMS 11/23 18:50 Order name: Group A Streptococcus Rapid Sc; Complete Time: 19:55 EDMS 11/23 19:04 Order name: FHT's; Complete Time: 20:16 cp 11/23 19:55 Order name: Throat Culture EDMS Administered Medications: No medications were administered Disposition: 11/24 08:28 Co-signature as Attending Physician, Mark Oneill MD I agree with the assessment and joey plan of care. Disposition Summary: 11/23/21 19:57 Discharge Ordered Location: Home cp Problem: new cp Symptoms: are unchanged cp Condition: Stable cp Diagnosis - SARS-associated coronavirus as the cause of diseases classified elsewhere cp Followup: cp - With: Private Physician - When: 2 - 3 days - Reason: Worsening of condition Discharge Instructions: - Discharge Summary Sheet cp - COVID-19 cp - Things to Know about the COVID-19 Pandemic - [facility] cp - 10 Things You Can Do to Manage Your COVID-19 Symptoms at Home - [facility] cp - COVID-19: Quarantine vs. Isolation - [facility] cp - Prevent the Spread of COVID-19 if You Are Sick - [facility] cp Forms: - Medication Reconciliation Form cp - Thank You Letter cp - Antibiotic Education cp - Prescription Opioid Use cp Prescriptions: - Zithromax Z-Jorgito 250 mg Oral Tablet - take 1 tablet by ORAL route as directed for 5 days Day 1 - take two (2) tablets cp one time. Day 2, 3, 4 , 5 take one (1) tablet once daily.; 6 tablet; Refills: 0, Product Selection Permitted Signatures: Dispatcher [employer] EDMark Hayes MD MD cha Page, Corey, PA PA cp Hastedt, Jennifer, RN RN [id number]
[2021-11-23 20:28] VITALS: TEMP 98.9; O2SAT 100
[2021-11-23 20:29] VITALS: BP 121/82
== END 2021-11-23 20:22 | disposition home or self-care (01) ==
LOC: ER 18:35
DX: O98.513 Other viral diseases complicating pregnancy, third trimester (principal); U07.1 COVID-19; Z3A.30 30 weeks gestation of pregnancy; Z88.2 Allergy status to sulfonamides; Z88.8 Allergy status to other drugs, medicaments and biological substances
CPT/HCPCS: 87070; 87081; 0240U; 99283

== ENCOUNTER 2024-11-29 14:13 | Emergency (ER) | payer OTHER ==
--- OUTSIDE RECORDS SUMMARY | 2024-11-29 14:20 | XMS REPORT | Continuity of Care Document ---
Author Name Unknown Address [address] [facility] [address] [place] [address] [facility] thconnect Address [address] [facility]. [address] [place] [address] Care Team Providers Care Product Manufacturing Professional Name Role Phone PCP, PATIENT DOES NOT HAVE A Primary Care Physic amanda Unavailable CHUCK CASPER Attending Clinician Unavailable CHUCK CASPER Attending Clinician Unavailable JANIE DOMÍNGUEZ Attending Clinician Unavailable 2, [facility] Attending Clinician Unavailable Janie Domínguez DNP Attending Clinician [phone] ROXANNE ALLEN Attending Clinician Unavailable ROAXNNE ALLEN Attending Clinician Unavailable Roxanne Don Attending Clinician [phone] NATIVIDAD KNOWLES Attending Clinician Unavailable NATIVIDAD KNOWLES Attending Clinician Unavailable Natividad Knowles NP Attending Clinician [phone] SANDRA ORLANDO Attending Clinician Unavailable Trinh Larson CRNA Attending Clinician +[phone] Bridget AMAYA, Erick Tamez Attending Clinician [phone], [facility] Attending Clinician Unavailable Doctor Unassigned, [place] Attending Clinician U delaney Orlando MD, [facility] Attending Clinician [phone] AJ HERNANDEZ Attending Clinician Unav ailable Ultrasound, [facility] Attending Clinician Unavaila roro Turner MD, Aj Attending Clinician + [email or web address] Attending Clinician Unavaila CHANDRIKA Reynoso Attending Clinician Unavailable Dalton AMAYA, Ella Attending Clinician [phone] Chandrika Clark PA-C Attending Clinician [phone] Ultrasound, [facility] Attending Clinician Unavaila Ally Neville Attending Clinician [phone] Pob, [facility] Main Attending Clinician UnavailLottie Walker MD Attending Clinician [phone] LOTTIE CANDELARIO Attending Clinician Unavailable KADEN Attending Clinician Unavailable CHUCK CASPER Admitting Clinician Unavailable Chuck Casper MD Admitting Clinician [phone] [email or web address] Admitting Clinician Unavaila roro ALFONSO Admitting Clinician Unavailable Payers Payer Name Policy Type Policy Number Effective Date Expirati on Date Source FREDRICK II [id number] 2020 00:00:00 [facility] MEDICAID [id number] 2021 00:00:00 [employer] HMO [id number] 00:00:00 [place] [id number] 2020 00:00:00 Problems Condition Name Condition Details Condition Category Status Onset Date Resolution Date Last Treatment Date Treating Clinician Comments Source History of anxiety History of anxiety Disease Active 2022-11 1- 00:00: 00 [facility] Anemia of mother in , antepartum Anemia of mother in , antepartum Disease Active 2022-0 2-23 00:00: 00 [facility] Family history of Down syndrome Family history of Down syndrome Disease Active 2018-0 3-22 00:00: 00 [facility] No known active problems No known active problems Disease [facility] 39 weeks gestation of 39 weeks gestation of Disease Resolve d 4-02 00:00: 00 2024-09-30 00:00:00 2024-09-30 20:30:37 [facility] Positive GBS test Positive GBS test Disease Resolve d 3-26 00:00: 00 2024-09-30 00:00:00 2024-09-30 20:30:36 [facility] Nonintract able headache, unspecifie d chronicity pattern, unspecifie d headache type Nonintract able headache, unspecifie d chronicity pattern, unspecifie d headache type Disease Resolve d 1-04 00:00: 00 2024-09-30 00:00:00 2024-09-30 20:30:31 [facility] Chest pain, unspecifie d type Chest pain, unspecifie d type Disease Resolve d 1-04 00:00: 00 2024-09-30 00:00:00 2024-09-30 20:30:33 [facility] SOB (shortness of breath) SOB (shortness of breath) Disease Resolve d 1-04 00:00: 00 2024-09-30 00:00:00 2024-09-30 20:30:34 [facility] Pain of round ligament during Pain of round ligament during Disease Resolve d 1-04 00:00: 00 2024-09-30 00:00:00 2024-09-30 20:30:12 [facility] 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 Disease Resolve d 2022-11 0-12 00:00: 00 2024-09-30 00:00:00 2024-09-30 20:30:28 [facility] Elevated BP without diagnosis of hypertensi on Elevated BP without diagnosis of hypertensi on Disease Resolve d 2021-0 3-09 00:00: 00 2024-09-30 00:00:00 2024-09-30 20:30:26 [facility] Anemia of mother in , antepartum Anemia of mother in , antepartum Disease Resolve d 2021-0 2-23 00:00: 00 2024-09-30 00:00:00 2024-09-30 20:30:23 [facility] High-risk in third trimester High-risk in third trimester Disease Resolve d 2020-1 0-07 00:00: 00 2024-09-30 00:00:00 2024-09-30 20:30:22 [facility] Liveborn , of thakkar , born in hospital by vaginal delivery Liveborn infant, of thakkar , born in hospital by vaginal delivery Disease Resolve d 2017- 0-18 00:00: 00 2024-09-30 00:00:00 2024-09-30 20:30:20 [facility] Gastroesop hageal reflux disease, unspecifie d whether esophagiti s present Gastroesop hageal reflux disease, unspecifie d whether esophagiti s present Disease Resolve d 2017-0 9-10 00:00: 00 2024-09-30 00:00:00 2024-09-30 20:30:17 [facility] Mild pre-eclamp je in third trimester Mild pre-eclamp je in third trimester Disease Resolve d 2021-0 3-13 00:00: 00 2022-07-02 00:00:00 2022-07-02 17:03:49 [facility] 37 weeks gestation of 37 weeks gestation of Disease Resolve d 2021-0 3-13 00:00: 00 2022-07-02 00:00:00 2022-07-02 17:03:50 [facility] Round ligament pain Round ligament pain Disease Resolve d 2021-0 3-09 00:00: 00 2022-07-02 00:00:00 2022-07-02 17:03:41 [facility] Marijuana use Marijuana use Disease Resolve d 2020-1 0-07 00:00: 00 2022-07-02 00:00:00 2022-07-02 17:03:45 [facility] Family history of Down syndrome Family history of Down syndrome Disease Resolve d 0 3- 00:00: 00 2022-07-02 00:00:00 2022-07-02 17:03:42 [facility] Dehydratio n Dehydratio n Disease Resolve d 2020-11 0-18 00:00: 00 2021-12-27 00:00:00 2021-12-27 17:10:43 [facility] Nausea and vomiting during prior to 22 weeks gestation Nausea and vomiting during prior to 22 weeks gestation Disease Resolve d 3- 00:00: 00 2021-12-07 00:00:00 2021-12-07 12:24:12 [facility] Nausea and vomiting during prior to 22 weeks gestation Nausea and vomiting during prior to 22 weeks gestation Disease Resolve d 3- 00:00: 00 2021-12-07 00:00:00 2021-12-07 12:24:12 [facility] Obesity (BMI 30-39.9) Obesity (BMI 30-39.9) Disease Resolve d 2017-11 0-12 00:00: 00 2021-06-14 00:00:00 2021-06-14 16:06:49 [facility] 39 weeks gestation of 39 weeks gestation of Disease Resolve d 2017-11 0-18 00:00: 00 2020-12-16 00:00:00 2020-12-16 13:08:43 [facility] Anemia of in third trimester Anemia of in third trimester Disease Resolve d 0 9-19 00:00: 00 2020-12-16 00:00:00 2020-12-16 13:08:47 [facility] Cervical shortening Cervical shortening Disease Resolve d 2017-11 0-18 00:00: 00 2018-08-21 00:00:00 2018-08-21 07:11:53 [facility] 35 weeks gestation of 35 weeks gestation of Disease Resolve d 2017-0 9-19 00:00: 00 2018-08-21 00:00:00 2018-08-21 07:11:37 [facility] uterine contractio ns, antepartum , third trimester uterine contractio ns, antepartum , third trimester Disease Resolve d 2017-0 9-19 00:00: 00 2018-08-21 00:00:00 2018-08-21 07:11:45 [facility] Constipati on, unspecifie d constipati on type Constipati on, unspecifie d constipati on type Disease Resolve d 2017-0 4-19 00:00: 00 2018-08-21 00:00:00 2018-08-21 07:11:28 [facility] Nausea and vomiting during Nausea and vomiting during Disease Resolve d 2017-0 3-08 00:00: 00 2018-07-30 00:00:00 2018-07-30 12:10:06 [facility] Nausea and vomiting during Nausea and vomiting during Disease Resolve d 0 3-08 00:00: 00 2018-07-30 00:00:00 2018-07-30 12:10:06 [facility] Nausea and vomiting in Nausea and vomiting in Disease Resolve d 0 3-07 00:00: 00 2018-07-30 00:00:00 2018-07-30 12:10:09 [facility] with inconclusi ve viability with inconclusi ve viability Disease Resolve d 0 3-07 00:00: 00 2018-07-30 00:00:00 2018-07-30 12:10:03 [facility] Hypokalemi a Hypokalemi a Disease Resolve d 0 3-07 00:00: 00 2018-07-30 00:00:00 2018-07-30 12:10:07 [facility] Nausea and vomiting in Nausea and vomiting in Disease Resolve d 0 3-07 00:00: 00 2018-07-30 00:00:00 2018-07-30 12:10:09 [facility] with inconclusi ve viability with inconclusi ve viability Disease Resolve d 0 3-07 00:00: 00 2018-07-30 00:00:00 2018-07-30 12:10:03 [facility] Uses oral contracept ion Uses oral contracept ion Disease Resolve d 12-23 00:00: 00 2018-01-08 00:00:00 2018-01-08 11:37:57 [facility] Allergies, Adverse Reactions, Alerts Allergy Name Allergy Type Status Severity Reaction(s) Onset Date Inactive Date Treating Clinician Comments Source Undecyle andry Ac-Zinc Undecyle na Propensi ty to adverse reaction s Active Hives 12-01 00:00: 00 [facility] UNDECYLE ANDRY AC-ZINC UNDECYLE NA DRUG Active Hives 12-01 00:00: 00 [facility] Social History Social Habit Start Date Stop Date Quantity Comments Source ASSERTION 2023-05-21 00:00:00 [facility] Gender identity [facility] Alcoholic beverage intake 2024-09-30 00:00:00 2024-09-30 00:00:00 Ex-drinker (finding) [facility] Alcohol intake 2024-01-21 00:00:00 2024-01-21 00:00:00 Ex-drinker (finding) [facility] Tobacco use and exposure 2023-07-18 00:00:00 2023-07-18 00:00:[address]okeless tobacco non-user [facility] Alcohol Comment 2023-07-18 00:00:00 2023-07-18 00:00:00 [facility] Exposure to SARS-CoV-2 (event) 2022-06-22 00:00:00 2022-07-02 16:08:[address] [facility] History of Social function 2019-05-14 00:00:00 2019-05-14 00:00:00 [facility] Sex assigned at 2000 00:00:00 2000 00:00:00 [facility] Smoking Status Start Date Stop Date Source Never smoked tobacco [facility] Medications Ordered Medication Name Filled Medication Name Start Date Stop Date Current Medication? Ordering Clinician Indication Dosage Frequency Signature (SIG) Comments Components Source tetracaine (PONTOCAINE ) 0.5 % ophthalmic drops 1 Drop 2023-11 17:15: 00 08-29 16:38 :00 No 1[drp] 1 Drop, Right Eye, ONCE, 1 dose, On 08/29/24 at 1215, Routine [facility] polymyxin B sulf-trimet hoprim 10,000 unit- 1 mg/mL ophthalmic drops 2023-11 00:00: 00 09-06 04:59 :00 No [id number] 1[drp] Place 1 Drop in both eyes every 6 (six) hours for 7 days. [facility] ibuprofen (IBU) tablet 800 mg 07-13 01:15: 00 07-13 01:27 :00 No 800mg 800 mg, Oral, ONCE, 1 dose, On 07/12/24 at 2015, SHAHEED [facility] witch Dereck (TUCKS) 50 % topical pad 02-04 00:08: 42 Yes Topical, Q4HPRN, Starting on Sat02/04/24 at 1908, Until Discontinu ed, Routine, rectal/hem orrhoidal pain [facility] docusate 100 mg capsule 02-04 00:00: 00 Yes [id number] 102 200mg Take 2 capsules by mouth once daily as needed for Constipati on. [facility] ferrous sulfate 325 mg (65 mg iron) tablet 02-04 00:00: 00 Yes [id number] 102 325mg Take 1 tablet by mouth in the morning. [facility] ibuprofen 600 mg tablet 02-04 00:00: 00 Yes [id number] 102 600mg Take 1 tablet by mouth every 6 (six) hours as needed (Pain). Take with food or milk. [facility] rho(D) immune globulin (RHOGAM) syringe 300 mcg 02-03 17:23: 40 Yes 300ug 300 mcg, Intramuscu lar, ONCE, For 1 dose, Conditiona l, Routine [facility] HYDROcodone -acetaminop hen (NORCO 5) 5-325 mg tablet 1 tablet 02-03 17:23: 36 Yes 1{tbl} 1 tablet, Oral, Q6HPRN, Starting on Sat02/04/24 at 1223, Until Discontinu ed, Routine, Pain (scale 7-10) [facility] ibuprofen (IBU) tablet 600 mg 02-03 17:23: 36 Yes 600mg 600 mg, Oral, Q6HPRN, Starting on Sat02/04/24 at 1223, Until Discontinu ed, Routine, Pain (scale 4-6) [facility] acetaminoph en (TYLENOL) tablet 650 mg 02-03 17:23: 36 Yes 650mg 650 mg, Oral, Q6HPRN, Starting on Sat02/04/24 at 1223, Until Discontinu ed, Routine, Pain (scale 1-3) [facility] diphenhydrA MINE (BENADRYL) tablet 25 mg 02-03 17:23: 36 Yes 25mg 25 mg, Oral, Q6HPRN, Starting on Sat02/04/24 at 1223, Until Discontinu ed, Routine, Sleep, Itching [facility] ondansetron (ZOFRAN (PF)) injection 4 mg 02-03 17:23: 36 Yes 4mg 4 mg, Slow IV Push, Q8HPRN, Starting on Sat02/04/24 at 1223, Until Discontinu ed, Routine, Nausea and Vomiting (N/V) [facility] simethicone (GAS RELIEF (SIMETHICON E)) chewable tablet 160 mg 02-03 17:23: 36 Yes 160mg 160 mg, Oral, PC+HSPRN, Starting on Sat02/04/24 at 1223, Until Discontinu ed, Routine, Gas [facility] docusate (COLACE) capsule 200 mg 02-03 17:23: 36 Yes 200mg 200 mg, Oral, QDAILYPRN, Starting on Sat02/04/24 at 1223, Until Discontinu ed, Routine, Constipati on [facility] magnesium hydroxide (MILK OF MAGNESIA) 400 mg/5 mL suspension 30 mL 02-03 17:23: 36 Yes 30mL 30 mL, Oral, QDAILYPRN, Starting on Sat02/04/24 at 1223, Until Discontinu ed, Routine, Constipati on [facility] benzocaine- menthol (DERMOPLAST ) 20-0.5 % topical spray 02-03 17:23: 36 Yes Topical, PRN, Starting on Sat02/04/24 at 1223, Until Discontinu ed, Routine, Perineum discomfort [facility] PIB fentaNYL-ro pivacaine 2 mcg/mL-0.1 % (PF) in NS 200 mL epidural infusion RTU 02-03 13:42: 00 02-03 19:21 :27 No Epidural, CONTINUOUS PRN, Starting on Sat02/04/24 at 0842, Until Discontinu ed, Routine, Intra-op [facility] lidocaine-e pinephrine (XYLOCAINE W/EPINEPHRI NE) 1.5 %-1:200,000 injection 02-03 13:40: 00 02-03 19:21 :27 No Epidural, ONCE INTRA PROCEDURE, Starting on Sat02/04/24 at 0840, Until Discontinu ed, Routine, Intra-op [facility] acyclovir (ZOVIRAX) tablet 400 mg 02-03 13:00: 00 02-04 00:08 :43 No 400mg 400 mg, Oral, TID, First dose on Sat02/04/24 at 0800, Until Discontinu ed, SHAHEED [facility] PNV no.95/sylvie fum/folic ac ( ORAL) 02-03 10:21: 26 02-04 00:00 :00 No Take by mouth. [facility] oxytocin (PITOCIN) 30 units in NS 500 mL IV infusion 02-03 09:09: 22 02-04 00:08 :43 No 2mU/min at 2-40 mL/hr, IV Infusion, TITRATE, Starting on Sat02/04/24 at 0409, Until Sat02/04/24 at 1908, SHAHEED [facility] D5W-LR IV infusion 1,000 mL 02-03 09:09: 22 02-04 00:08 :42 No 1000mL at 1-125 mL/hr, IV Infusion, TITRATE, Starting on Sat02/04/24 at 0409, Until Sat02/04/24 at 1908, Routine [facility] ferrous sulfate (IRON, FERROUS SULFATE,) 325 mg (65 mg iron) tablet 01-21 00:00: 00 02-04 00:00 :00 No [id number] 325mg Take 1 tablet by mouth in the morning and 1 tablet in the evening. [facility] valACYclovi r (VALTREX) 500 mg tablet 01-09 00:00: 00 02-04 00:00 :00 No [id number] 500mg Take 1 tablet by mouth in the morning and 1 tablet in the evening. [facility] PNV no.95/sylvie us fum/folic ac ( ORAL) 2022-11 13:10: 10 Yes Take by mouth. [facility] PNV no.95/sylvie us fum/folic ac ( ORAL) 2022-11 1 11:23: 19 Yes Take by mouth. [facility] famotidine (PEPCID ORAL) 2022-11 0- 14:02: 52 08-15 00:00 :00 No Take by mouth. [facility] esomeprazol e (NEXIUM) 40 mg capsule 2022-11 0-12 00:00: 00 02-04 00:00 :00 No [id number] 40mg Take 1 capsule by mouth daily with breakfast. [facility] famotidine (PEPCID ORAL) - 14:52: 17 Yes Take by mouth. [facility] RSA38-AF-ia 3-dha-epa-f luis oil ( GUMMY) 400 mcg-35 mg -25 mg-5 mg Chew 07-02 16:58: 04 07-02 00:00 :00 No Take by mouth. [facility] [id number]-VB-zz 3-dha-epa-f luis oil ( GUMMY) 400 mcg-35 mg -25 mg-5 mg Chew 07-02 16:58: 04 07-02 00:00 :00 No Take by mouth. [facility] ZAQ12-DQ-ed 3-dha-epa-f luis oil ( GUMMY) 400 mcg-35 mg -25 mg-5 mg Chew 01-15 20:48: 59 Yes Take by mouth. [facility] medroxyPROG ESTERone (DEPO-PROVE RA) injection 150 mg 01-15 14:15: 00 01-15 15:12 :00 No 150mg 150 mg, Intramuscu lar, ONCE, 1 dose, On Sat01/15/22 at 0915, Routine [facility] ferrous sulfate (IRON ORAL) 01-15 09:10: 26 01-15 00:00 :00 No Take by mouth. [facility] famotidine (PEPCID AC) tablet 20 mg 01-15 01:00: 00 Yes 20mg 20 mg, Oral, BID, First dose on Sat01/14/22 at 2000, Until Discontinu ed, Routine [facility] docusate calcium 240 mg capsule 01-15 00:00: 00 Yes [id number] 240mg Take 1 capsule by mouth once daily as needed for Constipati on. [facility] ferrous sulfate 325 mg (65 mg iron) tablet 01-15 00:00: 00 Yes [id number] 325mg Take 1 tablet by mouth 2 (two) times daily. [facility] ibuprofen 600 mg tablet 01-15 00:00: 00 Yes [id number] 600mg Take 1 tablet by mouth every 6 (six) hours as needed (Pain). Take with food or milk. [facility] simethicone (MYLICON) chewable tablet 125 mg 01-14 23:00: 00 Yes 125mg 125 mg, Oral, PC+HS, First dose on Sat01/14/22 at 1800, Until Discontinu ed, Routine [facility] rho(D) immune globulin (RHOGAM) syringe 300 mcg 01-14 22:07: 38 Yes 300ug 300 mcg, Intramuscu lar, ONCE, For 1 dose, Conditiona l, Routine [facility] witch Dereck (TUCKS) 50 % topical pad 01-14 22:07: 37 Yes Topical, Q4HPRN, Starting on Sat01/14/22 at 1707, Until Discontinu ed, Routine, rectal/hem orrhoidal pain [facility] ibuprofen (IBU) tablet 600 mg 01-14 22:07: 37 Yes 600mg 600 mg, Oral, Q6HPRN, Starting on 01/14/22 at 1707, Until Discontinu ed, Routine, Pain (scale 4-6) [facility] magnesium hydroxide (MILK OF MAGNESIA) 400 mg/5 mL suspension 30 mL 01-14 22:07: 37 Yes 30mL 30 mL, Oral, QDAILYPRN, Starting on 01/14/22 at 1707, Until Discontinu ed, Routine, Constipati on [facility] HYDROcodone -acetaminop hen (NORCO 5) 5-325 mg tablet 1 tablet 01-14 22:07: 36 Yes 1{tbl} 1 tablet, Oral, Q6HPRN, Starting on 01/14/22 at 1707, Until Discontinu ed, Routine, Pain (scale 7-10) [facility] acetaminoph en (TYLENOL) tablet 650 mg 01-14 22:07: 36 Yes 650mg 650 mg, Oral, Q6HPRN, Starting on 01/14/22 at 1707, Until Discontinu ed, Routine, Pain (scale 1-3) [facility] diphenhydrA MINE (BENADRYL) tablet 25 mg 01-14 22:07: 36 Yes 25mg 25 mg, Oral, Q6HPRN, Starting on 01/14/22 at 1707, Until Discontinu ed, Routine, Sleep, Itching [facility] docusate calcium (SURFAK) capsule 240 mg 01-14 22:07: 36 Yes 240mg 240 mg, Oral, QDAILYPRN, Starting on Sat01/14/22 at 1707, Until Discontinu ed, Routine, Constipati on [facility] benzocaine- menthol (DERMOPLAST ) 20-0.5 % topical spray 01-14 22:07: 36 Yes Topical, PRN, Starting on Sat01/14/22 at 1707, Until Discontinu ed, Routine, Perineum discomfort [facility] LR 1000 mL + oxytocin 20 units IV Solution 01-14 21:30: 00 01-14 22:07 :38 No 999mL/h 999 mL/hr, IV Infusion, ONCE, On Sat01/14/22 at 1630, For 1 dose
In fuse 999 mL /hr & nbsp;over 30 minutes and then decrease rate to 125 mL/hr for the remainder.
[facility] fentaNYL-ro pivacaine 2 mcg/mL-0.1 % (PF) in NS 200 mL epidural infusion RTU 01-14 18:00: 00 01-14 23:07 :02 No Epidural, ONCE INTRA PROCEDURE, Starting on Sat01/14/22 at 1300, Until Sat01/14/22 at 1807, Routine, Intra-op [facility] lidocaine-e pinephrine (XYLOCAINE W/EPINEPHRI NE) 1.5 %-1:200,000 injection 01-14 17:56: 00 01-14 23:07 :02 No Intraderma l, ONCE INTRA PROCEDURE, Starting on Sat01/14/22 at 1256, Until Sat01/14/22 at 1807, Routine, Intra-op [facility] ondansetron (ZOFRAN (PF)) injection 4 mg 01-14 16:45: 28 Yes 4mg 4 mg, Slow IV Push, Q6HPRN, Starting on Sat01/14/22 at 1145, Until Discontinu ed, Routine, Nausea and Vomiting (N/V) [facility] [id number] 3-dha-epa-f luis oil ( GUMMY) 400 mcg-35 mg -25 mg-5 mg Chew 01-14 16:32: 38 Yes Take by mouth. [facility] ferrous sulfate (IRON ORAL) 01-14 16:32: 38 Yes Take by mouth. [facility] LR 1000 mL + oxytocin 20 units IV Solution 01-14 15:07: 51 01-14 22:07 :38 No 2mU/min at 6-120 mL/hr, IV Infusion, TITRATE, Starting on Sat01/14/22 at 1007, Until Sat01/14/22 at 1707, SHAHEED [facility] D5W-LR IV infusion 1,000 mL 01-14 08:00: 00 01-14 22:07 :38 No 1000mL at 125 mL/hr, IV Infusion, CONTINUOUS , Starting on Sat01/14/22 at 0300, Until Sat01/14/22 at 1707, Routine [facility] proMETHazin e (PHENERGAN) 25 mg in NaCl 0.9% (NS) 50 mL IV piggyback 01-14 07:54: 23 Yes 25mg 25 mg, IV Piggyback, Q4HPRN, Starting on Sat01/14/22 at 0154, Until Discontinu ed, 50 mL [facility] ferrous sulfate (IRON, FERROUS SULFATE,) 325 mg (65 mg iron) tablet 12-27 00:00: 00 01-10 00:00 :00 No [id number] 325mg Take 1 tablet by mouth 2 (two) times daily. [facility] famotidine 20 mg tablet 18 00:00: 00 01-15 00:00 :00 No [id number] 20mg Take 1 tablet by mouth 2 (two) times daily. [facility] [id number]-[id number] 3-dha-epa-f luis oil ( GUMMY) 400 mcg-35 mg -25 mg-5 mg Chew 12-20 13:58: 17 Yes Take by mouth. [facility] PNV no.95/sylvie us fum/folic ac ( ORAL) 12-20 13:58: 17 02-04 00:00 :00 No Take by mouth. [facility] [id number]-IR-oj 3-dha-epa-f luis oil ( GUMMY) 400 mcg-35 mg -25 mg-5 mg Chew 12-20 10:23: 41 Yes Take by mouth. [facility] ferrous sulfate (IRON ORAL) 12-20 10:23: 41 Yes Take by mouth. [facility] famotidine 20 mg tablet 2020-11 2 00:00: 00 12-22 00:00 :00 No [id number] 20mg Take 1 tablet by mouth 2 (two) times daily. [facility] proMETHazin e 25 mg suppository 2020-11 018 00:00: 00 07-02 00:00 :00 No [id number] 25mg Insert 1 Suppositor y into rectum every 4 (four) hours as needed for Nausea and Vomiting (N/V). [facility] proMETHazin e 25 mg tablet 2020-11 0-07 00:00: 00 07-02 00:00 :00 No [id number] 25mg Take 1 tablet by mouth every 4 (four) hours as needed for Nausea and Vomiting (N/V). [facility] Immunizations Ordered Immunization Name Filled Immunization Name Date Status Comments Source Influenza Virus Vaccine Quad IM, Preserv and ABX Free 6 MO-64 YRS (FLUCELVAX) 2023-08-15 00:00:00 Completed Influenza Virus Vaccine Quad IM, Preserv and ABX Free 6 MO-64 YRS 2022-01-10 00:00:[address] [facility] Influenza Virus Vaccine Quad IM, Preserv and ABX Free 6 MO-64 YRS 2022-01-10 00:00:[address] [facility] Influenza Virus Vaccine Quad IM, Preserv and ABX Free 6 MO-64 YRS 2022-01-10 00:00:[address] [facility] Influenza Virus Vaccine Quad IM, Preserv and ABX Free 6 MO-64 YRS 2022-01-10 00:00:[address] [facility] Influenza Virus Vaccine Quad IM, Preserv and ABX Free 6 MO-64 YRS 2022-01-10 00:00:[address] [facility] Influenza Virus Vaccine Quad IM, Preserv and ABX Free 6 MO-64 YRS 2022-01-10 00:00:[address] [facility] Influenza Virus Vaccine Quad IM, Preserv and ABX Free 6 MO-64 YRS (FLUCELVAX) 2022-01-10 00:00:[address] [facility] Influenza Virus Vaccine Quad IM, Preserv and ABX Free 6 MO-64 YRS (FLUCELVAX) 2022-01-10 00:00:[address] [facility] Influenza Virus Vaccine Quad IM, Preserv and ABX Free 6 MO-64 YRS (FLUCELVAX) 2022-01-10 00:00:[address] [facility] Influenza Virus Vaccine Quad IM, Preserv and ABX Free 6 MO-64 YRS (FLUCELVAX) 2022-01-10 00:00:[address] [facility] Influenza Virus Vaccine Quad IM, Preserv and ABX Free 6 MO-64 YRS (FLUCELVAX) 2022-01-10 00:00:[address] [facility] Influenza Virus Vaccine Quad IM, Preserv and ABX Free 6 MO-64 YRS (FLUCELVAX) 2022-01-10 00:00:[address] [facility] Influenza Virus Vaccine Quad IM, Preserv and ABX Free 6 MO-64 YRS 2022-01-10 00:00:[address] [facility] TDAP 2021-11-23 00:00:[address] [facility] TDAP 2021-11-23 00:00:[address] [facility] TDAP 2021-11-23 00:00:[address] [facility] TDAP 2021-11-23 00:00:[address] [facility] TDAP 2021-11-23 00:00:[address] [facility] TDAP 2021-11-23 00:00:[address] [facility] TDAP 2021-11-23 00:00:[address] [facility] TDAP 2021-11-23 00:00:[address] [facility] TDAP 2021-11-23 00:00:[address] [facility] TDAP 2021-11-23 00:00:[address] [facility] TDAP 2021-11-23 00:00:[address] [facility] TDAP 2021-11-23 00:00:[address] [facility] TDAP 2021-11-23 00:00:[address] [facility] TDAP 2021-11-23 00:00:[address] [facility] TDAP 2021-11-23 00:00:[address] [facility] TDAP 2021-11-23 00:00:[address] [facility] TDAP 2021-11-23 00:00:[address] [facility] TDAP 2021-11-23 00:00:[address] [facility] MMR 2018-08-22 00:00:[address] [facility] MMR 2018-08-22 00:00:[address] [facility] MMR 2018-08-22 00:00:[address] [facility] MMR 2018-08-22 00:00:[address] [facility] MMR 2018-08-22 00:00:[address] [facility] MMR 2018-08-22 00:00:[address] [facility] MMR 2018-08-22 00:00:[address] [facility] MMR 2018-08-22 00:00:[address] [facility] MMR 2018-08-22 00:00:[address] [facility] MMR 2018-08-22 00:00:[address] [facility] MMR 2018-08-22 00:00:[address] [facility] MMR 2018-08-22 00:00:[address] [facility] MMR 2018-08-22 00:00:[address] [facility] MMR 2018-08-22 00:00:[address] [facility] MMR 2018-08-22 00:00:[address] [facility] MMR 2018-08-22 00:00:[address] [facility] MMR 2018-08-22 00:00:[address] [facility] MMR 2018-08-22 00:00:[address] [facility] Influenza Virus Vaccine Quad .5 mL IM 6+ MO 2018-08-07 00:00:[address] [facility] Influenza Virus Vaccine Quad .5 mL IM 6+ MO 2018-08-07 00:00:[address] [facility] Influenza Virus Vaccine Quad .5 mL IM 6+ MO 2018-08-07 00:00:[address] [facility] Influenza Virus Vaccine Quad .5 mL IM 6+ MO 2018-08-07 00:00:[address] [facility] Influenza Virus Vaccine Quad .5 mL IM 6+ MO 2018-08-07 00:00:[address] [facility] Influenza Virus Vaccine Quad .5 mL IM 6+ MO 2018-08-07 00:00:[address] [facility] Influenza Virus Vaccine Quad .5 mL IM 6+ MO (FLUZONE/FLULAVAL/F LUARIX) 2018-08-07 00:00:[address] [facility] Influenza Virus Vaccine Quad .5 mL IM 6+ MO (FLUZONE/FLULAVAL/F LUARIX) 2018-08-07 00:00:[address] [facility] Influenza Virus Vaccine Quad .5 mL IM 6+ MO (FLUZONE/FLULAVAL/F LUARIX) 2018-08-07 00:00:[address] [facility] Influenza Virus Vaccine Quad .5 mL IM 6+ MO (FLUZONE/FLULAVAL/F LUARIX) 2018-08-07 00:00:[address] [facility] Influenza Virus Vaccine Quad .5 mL IM 6+ MO (FLUZONE/FLULAVAL/F LUARIX) 2018-08-07 00:00:[address] [facility] Influenza Virus Vaccine Quad .5 mL IM 6+ MO (FLUZONE/FLULAVAL/F LUARIX) 2018-08-07 00:00:00 Completed Influenza Virus Vaccine Quad .5 mL IM 6+ MO 2018-08-07 00:00:[address] [facility] Influenza Virus Vaccine Quad .5 mL IM 6+ MO 2018-08-07 00:00:[address] [facility] Influenza Virus Vaccine Quad .5 mL IM 6+ MO 2018-08-07 00:00:[address] [facility] Influenza Virus Vaccine Quad .5 mL IM 6+ MO 2018-08-07 00:00:[address] [facility] Influenza Virus Vaccine Quad .5 mL IM 6+ MO 2018-08-07 00:00:[address] [facility] Influenza Virus Vaccine Quad .5 mL IM 6+ MO 2018-08-07 00:00:[address] [facility] TDAP 2018-06-18 00:00:[address] [facility] TDAP 2018-06-18 00:00:[address] [facility] TDAP 2018-06-18 00:00:[address] [facility] TDAP 2018-06-18 00:00:[address] [facility] TDAP 2018-06-18 00:00:[address] [facility] TDAP 2018-06-18 00:00:[address] [facility] TDAP 2018-06-18 00:00:[address] [facility] TDAP 2018-06-18 00:00:[address] [facility] TDAP 2018-06-18 00:00:[address] [facility] TDAP 2018-06-18 00:00:[address] [facility] TDAP 2018-06-18 00:00:[address] [facility] TDAP 2018-06-18 00:00:[address] [facility] TDAP 2018-06-18 00:00:[address] [facility] TDAP 2018-06-18 00:00:[address] [facility] TDAP 2018-06-18 00:00:[address] [facility] TDAP 2018-06-18 00:00:[address] [facility] TDAP 2018-06-18 00:00:[address] [facility] TDAP 2018-06-18 00:00:[address] [facility] MMR Unknown Completed [facility] TDAP Unknown Completed [facility] Influenza Virus Vaccine Quad .5 mL IM 6+ MO (FLUZONE/FLULAVAL/F LUARIX) Unknown Completed [facility] MMR Unknown Completed [facility] TDAP Unknown Completed [facility] Influenza Virus Vaccine Quad .5 mL IM 6+ MO (FLUZONE/FLULAVAL/F LUARIX) Unknown Completed [facility] MMR Unknown Completed [facility] TDAP Unknown Completed [facility] Influenza Virus Vaccine Quad .5 mL IM 6+ MO (FLUZONE/FLULAVAL/F LUARIX) Unknown Completed [facility] MMR Unknown Completed [facility] TDAP Unknown Completed [facility] Influenza Virus Vaccine Quad .5 mL IM 6+ MO (FLUZONE/FLULAVAL/F LUARIX) Unknown Completed [facility] MMR Unknown Completed [facility] Influenza Virus Vaccine Quad IM, Preserv and ABX Free 6 MO-64 YRS (FLUCELVAX) Unknown Completed [facility] TDAP Unknown Completed [facility] Influenza Virus Vaccine Quad .5 mL IM 6+ MO (FLUZONE/FLULAVAL/F LUARIX) Unknown Completed [facility] MMR Unknown Completed [facility] Influenza Virus Vaccine Quad IM, Preserv and ABX Free 6 MO-64 YRS (FLUCELVAX) Unknown Completed [facility] TDAP Unknown Completed [facility] Influenza Virus Vaccine Quad .5 mL IM 6+ MO (FLUZONE/FLULAVAL/F LUARIX) Unknown Completed [facility] MMR Unknown Completed [facility] Influenza Virus Vaccine Quad IM, Preserv and ABX Free 6 MO-64 YRS (FLUCELVAX) Unknown Completed [facility] TDAP Unknown Completed [facility] Influenza Virus Vaccine Quad .5 mL IM 6+ MO (FLUZONE/FLULAVAL/F LUARIX) Unknown Completed [facility] MMR Unknown Completed [facility] Influenza Virus Vaccine Quad IM, Preserv and ABX Free 6 MO-64 YRS (FLUCELVAX) Unknown Completed [facility] TDAP Unknown Completed [facility] Influenza Virus Vaccine Quad .5 mL IM 6+ MO (FLUZONE/FLULAVAL/F LUARIX) Unknown Completed [facility] MMR Unknown Completed [facility] Influenza Virus Vaccine Quad IM, Preserv and ABX Free 6 MO-64 YRS (FLUCELVAX) Unknown Completed [facility] TDAP Unknown Completed [facility] Influenza Virus Vaccine Quad .5 mL IM 6+ MO (FLUZONE/FLULAVAL/F LUARIX) Unknown Completed [facility] MMR Unknown Completed [facility] Influenza Virus Vaccine Quad IM, Preserv and ABX Free 6 MO-64 YRS (FLUCELVAX) Unknown Completed [facility] TDAP Unknown Completed [facility] Influenza Virus Vaccine Quad .5 mL IM 6+ MO (FLUZONE/FLULAVAL/F LUARIX) Unknown Completed [facility] MMR Unknown Completed [facility] Influenza Virus Vaccine Quad IM, Preserv and ABX Free 6 MO-64 YRS (FLUCELVAX) Unknown Completed [facility] TDAP Unknown Completed [facility] Influenza Virus Vaccine Quad .5 mL IM 6+ MO (FLUZONE/FLULAVAL/F LUARIX) Unknown Completed [facility] MMR Unknown Completed [facility] Influenza Virus Vaccine Quad IM, Preserv and ABX Free 6 MO-64 YRS (FLUCELVAX) Unknown Completed [facility] TDAP Unknown Completed [facility] Influenza Virus Vaccine Quad .5 mL IM 6+ MO (FLUZONE/FLULAVAL/F LUARIX) Unknown Completed [facility] MMR Unknown Completed [facility] Influenza Virus Vaccine Quad IM, Preserv and ABX Free 6 MO-64 YRS (FLUCELVAX) Unknown Completed [facility] TDAP Unknown Completed [facility] Influenza Virus Vaccine Quad .5 mL IM 6+ MO (FLUZONE/FLULAVAL/F LUARIX) Unknown Completed [facility] MMR Unknown Completed [facility] Influenza Virus Vaccine Quad IM, Preserv and ABX Free 6 MO-64 YRS (FLUCELVAX) Unknown Completed [facility] TDAP Unknown Completed [facility] Influenza Virus Vaccine Quad .5 mL IM 6+ MO (FLUZONE/FLULAVAL/F LUARIX) Unknown Completed [facility] MMR Unknown Completed [facility] Influenza Virus Vaccine Quad IM, Preserv and ABX Free 6 MO-64 YRS (FLUCELVAX) Unknown Completed [facility] TDAP Unknown Completed [facility] Influenza Virus Vaccine Quad .5 mL IM 6+ MO (FLUZONE/FLULAVAL/F LUARIX) Unknown Completed [facility] MMR Unknown Completed [facility] Influenza Virus Vaccine Quad IM, Preserv and ABX Free 6 MO-64 YRS (FLUCELVAX) Unknown Completed [facility] TDAP Unknown Completed [facility] Influenza Virus Vaccine Quad .5 mL IM 6+ MO (FLUZONE/FLULAVAL/F LUARIX) Unknown Completed [facility] MMR Unknown Completed [facility] Influenza Virus Vaccine Quad IM, Preserv and ABX Free 6 MO-64 YRS (FLUCELVAX) Unknown Completed [facility] Influenza Virus Vaccine Quad .5 mL IM 6+ MO (FLUZONE/FLULAVAL/F LUARIX) Unknown Completed [facility] MMR Unknown Completed [facility] TDAP Unknown Completed [facility] Influenza Virus Vaccine Quad IM, Preserv and ABX Free 6 MO-64 YRS (FLUCELVAX) Unknown Completed [facility] TDAP Unknown Completed [facility] Influenza Virus Vaccine Quad .5 mL IM 6+ MO (FLUZONE/FLULAVAL/F LUARIX) Unknown Completed [facility] MMR Unknown Completed [facility] Influenza Virus Vaccine Quad IM, Preserv and ABX Free 6 MO-64 YRS (FLUCELVAX) Unknown Completed [facility] TDAP Unknown Completed [facility] Influenza Virus Vaccine Quad .5 mL IM 6+ MO (FLUZONE/FLULAVAL/F LUARIX) Unknown Completed [facility] MMR Unknown Completed [facility] Influenza Virus Vaccine Quad IM, Preserv and ABX Free 6 MO-64 YRS (FLUCELVAX) Unknown Completed [facility] TDAP Unknown Completed [facility] Influenza Virus Vaccine Quad .5 mL IM 6+ MO (FLUZONE/FLULAVAL/F LUARIX) Unknown Completed [facility] MMR Unknown Completed [facility] Influenza Virus Vaccine Quad IM, Preserv and ABX Free 6 MO-64 YRS (FLUCELVAX) Unknown Completed [facility] TDAP Unknown Completed [facility] Influenza Virus Vaccine Quad .5 mL IM 6+ MO (FLUZONE/FLULAVAL/F LUARIX) Unknown Completed [facility] MMR Unknown Completed [facility] Influenza Virus Vaccine Quad IM, Preserv and ABX Free 6 MO-64 YRS (FLUCELVAX) Unknown Completed [facility] TDAP Unknown Completed [facility] Influenza Virus Vaccine Quad .5 mL IM 6+ MO (FLUZONE/FLULAVAL/F LUARIX) Unknown Completed [facility] MMR Unknown Completed [facility] Influenza Virus Vaccine Quad IM, Preserv and ABX Free 6 MO-64 YRS (FLUCELVAX) Unknown Completed [facility] TDAP Unknown Completed [facility] Influenza Virus Vaccine Quad .5 mL IM 6+ MO (FLUZONE/FLULAVAL/F LUARIX) Unknown Completed [facility] MMR Unknown Completed [facility] Influenza Virus Vaccine Quad IM, Preserv and ABX Free 6 MO-64 YRS (FLUCELVAX) Unknown Completed [facility] TDAP Unknown Completed [facility] Influenza Virus Vaccine Quad .5 mL IM 6+ MO (FLUZONE/FLULAVAL/F LUARIX) Unknown Completed [facility] MMR Unknown Completed [facility] Influenza Virus Vaccine Quad IM, Preserv and ABX Free 6 MO-64 YRS (FLUCELVAX) Unknown Completed [facility] TDAP Unknown Completed [facility] Influenza Virus Vaccine Quad .5 mL IM 6+ MO (FLUZONE/FLULAVAL/F LUARIX) Unknown Completed [facility] MMR Unknown Completed [facility] Influenza Virus Vaccine Quad IM, Preserv and ABX Free 6 MO-64 YRS (FLUCELVAX) Unknown Completed [facility] TDAP Unknown Completed [facility] Influenza Virus Vaccine Quad .5 mL IM 6+ MO (FLUZONE/FLULAVAL/F LUARIX) Unknown Completed [facility] MMR Unknown Completed [facility] Influenza Virus Vaccine Quad IM, Preserv and ABX Free 6 MO-64 YRS (FLUCELVAX) Unknown Completed [facility] TDAP Unknown Completed [facility] Influenza Virus Vaccine Quad .5 mL IM 6+ MO (FLUZONE/FLULAVAL/F LUARIX) Unknown Completed [facility] MMR Unknown Completed [facility] Influenza Virus Vaccine Quad IM, Preserv and ABX Free 6 MO-64 YRS (FLUCELVAX) Unknown Completed [facility] TDAP Unknown Completed [facility] Influenza Virus Vaccine Quad .5 mL IM 6+ MO (FLUZONE/FLULAVAL/F LUARIX) Unknown Completed [facility] MMR Unknown Completed [facility] Influenza Virus Vaccine Quad IM, Preserv and ABX Free 6 MO-64 YRS (FLUCELVAX) Unknown Completed [facility] TDAP Unknown Completed [facility] Influenza Virus Vaccine Quad .5 mL IM 6+ MO (FLUZONE/FLULAVAL/F LUARIX) Unknown Completed [facility] MMR Unknown Completed [facility] Influenza Virus Vaccine Quad IM, Preserv and ABX Free 6 MO-64 YRS (FLUCELVAX) Unknown Completed [facility] TDAP Unknown Completed [facility] Influenza Virus Vaccine Quad .5 mL IM 6+ MO (FLUZONE/FLULAVAL/F LUARIX) Unknown Completed [facility] MMR Unknown Completed [facility] Influenza Virus Vaccine Quad IM, Preserv and ABX Free 6 MO-64 YRS (FLUCELVAX) Unknown Completed [facility] TDAP Unknown Completed [facility] Influenza Virus Vaccine Quad .5 mL IM 6+ MO (FLUZONE/FLULAVAL/F LUARIX) Unknown Completed [facility] MMR Unknown Completed [facility] Influenza Virus Vaccine Quad IM, Preserv and ABX Free 6 MO-64 YRS (FLUCELVAX) Unknown Completed [facility] TDAP Unknown Completed [facility] Influenza Virus Vaccine Quad .5 mL IM 6+ MO (FLUZONE/FLULAVAL/F LUARIX) Unknown Completed [facility] MMR Unknown Completed [facility] Influenza Virus Vaccine Quad IM, Preserv and ABX Free 6 MO-64 YRS (FLUCELVAX) Unknown Completed [facility] TDAP Unknown Completed [facility] Influenza Virus Vaccine Quad .5 mL IM 6+ MO (FLUZONE/FLULAVAL/F LUARIX) Unknown Completed [facility] MMR Unknown Completed [facility] Influenza Virus Vaccine Quad IM, Preserv and ABX Free 6 MO-64 YRS (FLUCELVAX) Unknown Completed [facility] TDAP Unknown Completed [facility] Influenza Virus Vaccine Quad .5 mL IM 6+ MO (FLUZONE/FLULAVAL/F LUARIX) Unknown Completed [facility] MMR Unknown Completed [facility] Influenza Virus Vaccine Quad IM, Preserv and ABX Free 6 MO-64 YRS (FLUCELVAX) Unknown Completed [facility] TDAP Unknown Completed [facility] Influenza Virus Vaccine Quad .5 mL IM 6+ MO (FLUZONE/FLULAVAL/F LUARIX) Unknown Completed [facility] MMR Unknown Completed [facility] Influenza Virus Vaccine Quad IM, Preserv and ABX Free 6 MO-64 YRS (FLUCELVAX) Unknown Completed [facility] TDAP Unknown Completed [facility] Influenza Virus Vaccine Quad .5 mL IM 6+ MO (FLUZONE/FLULAVAL/F LUARIX) Unknown Completed [facility] MMR Unknown Completed [facility] Influenza Virus Vaccine Quad IM, Preserv and ABX Free 6 MO-64 YRS (FLUCELVAX) Unknown Completed [facility] TDAP Unknown Completed [facility] Influenza Virus Vaccine Quad .5 mL IM 6+ MO (FLUZONE/FLULAVAL/F LUARIX) Unknown Completed [facility] MMR Unknown Completed [facility] TDAP Unknown Completed [facility] Influenza Virus Vaccine Quad .5 mL IM 6+ MO (FLUZONE/FLULAVAL/F LUARIX) Unknown Completed [facility] MMR Unknown Completed [facility] TDAP Unknown Completed [facility] Influenza Virus Vaccine Quad .5 mL IM 6+ MO (FLUZONE/FLULAVAL/F LUARIX) Unknown Completed [facility] Vital Signs Vital Name Observation Time Observation Value Comments S ource Systolic blood pressure 2024-09-30 20:56:00 128 mm[Hg] [facility] Diastolic blood pressure 2024-09-30 20:56:00 80 mm[Hg] [facility] Heart rate 2024-09-30 20:56:00 73 /min [facility] Body weight 2024-09-30 20:56:00 90.719 kg [facility] BMI 2024-09-30 20:56:00 32.28 kg/m2 [facility] Systolic blood pressure 2024-08-29 15:54:00 137 mm[Hg] [facility] Diastolic blood pressure 2024-08-29 15:54:00 82 mm[Hg] [facility] Heart rate 2024-08-29 15:54:00 80 /min [facility] Body temperature 2024-08-29 15:54:[address] [facility] Respiratory rate 2024-08-29 15:54:00 14 /min [facility] Body height 2024-08-29 15:54:00 167.6 cm [facility] Body weight 2024-08-29 15:54:00 90.719 kg [facility] BMI 2024-08-29 15:54:00 32.28 kg/m2 [facility] Oxygen saturation in Arterial blood by Pulse oximetry 2024-08-29 15:54:00 100 /min [facility] Systolic blood pressure 2024-07-13 01:07:00 155 mm[Hg] [facility] Diastolic blood pressure 2024-07-13 01:07:00 93 mm[Hg] [facility] Heart rate 2024-07-13 01:07:00 89 /min Unive [facility] Body temperature 2024-07-13 01:07:[address] [facility] Respiratory rate 2024-07-13 01:07:00 20 /min [facility] Body height 2024-07-13 01:07:00 167.6 cm [facility] Body weight 2024-07-13 01:07:00 90.719 kg [facility] BMI 2024-07-13 01:07:00 32.28 kg/m2 [facility] Oxygen saturation in Arterial blood by Pulse oximetry 2024-07-13 01:07:00 99 /min [facility] Systolic blood pressure 2024-02-05 18:00:00 116 mm[Hg] [facility] Diastolic blood pressure 2024-02-05 18:00:00 47 mm[Hg] [facility] Heart rate 2024-02-05 08:47:00 84 /min Unive [facility] Body temperature 2024-02-05 05:45:[address] [facility] Respiratory rate 2024-02-05 05:45:00 20 /min [facility] Oxygen saturation in Arterial blood by Pulse oximetry 2024-02-05 05:45:00 100 /min [facility] Body height 2024-02-04 09:12:00 167.6 cm [facility] Body weight 2024-02-04 09:12:00 97.796 kg [facility] BMI 2024-02-04 09:12:00 34.80 kg/m2 [facility] Systolic blood pressure 2024-01-28 19:22:00 126 mm[Hg] [facility] Diastolic blood pressure 2024-01-28 19:22:00 77 mm[Hg] [facility] Heart rate 2024-01-28 19:22:00 92 /min [facility] Body weight 2024-01-28 19:22:00 95.89 kg [facility] BMI 2024-01-28 19:22:00 34.12 kg/m2 [facility] Systolic blood pressure 2024-01-21 21:28:00 113 mm[Hg] [facility] Diastolic blood pressure 2024-01-21 21:28:00 74 mm[Hg] [facility] Heart rate 2024-01-21 21:28:00 134 /min Unive [facility] Body height 2024-01-21 21:28:00 167.6 cm [facility] Body weight 2024-01-21 21:28:00 94.394 kg [facility] BMI 2024-01-21 21:28:00 33.59 kg/m2 [facility] Oxygen saturation in Arterial blood by Pulse oximetry 2024-01-21 21:28:00 98 /min [facility] Systolic blood pressure 2024-01-21 20:13:00 116 mm[Hg] [facility] Diastolic blood pressure 2024-01-21 20:13:00 78 mm[Hg] [facility] Heart rate 2024-01-21 20:12:00 111 /min [facility] Body weight 2024-01-21 20:12:00 94.892 kg [facility] BMI 2024-01-21 20:12:00 33.77 kg/m2 [facility] Systolic blood pressure 2024-01-10 16:38:00 121 mm[Hg] [facility] Diastolic blood pressure 2024-01-10 16:38:00 73 mm[Hg] [facility] Heart rate 2024-01-10 16:38:00 96 /min Unive [facility] Body temperature 2024-01-10 16:38:[address] [facility] Respiratory rate 2024-01-10 16:38:00 18 /min [facility] Body height 2024-01-10 16:38:00 167.6 cm [facility] weight 2024-01-10 16:38:00 93.895 kg [facility] BMI 2024-01-10 16:38:00 33.41 kg/m2 Univ [facility] Systolic blood pressure 2023-11-07 20:03:00 126 mm[Hg] [facility] Diastolic blood pressure 2023-11-07 20:03:00 70 mm[Hg] [facility] Heart rate 2023-11-07 20:03:00 104 /min Unive [facility] Respiratory rate 2023-11-07 20:03:00 18 /min [facility] Body height 2023-11-07 20:03:[address] [facility] Body weight 2023-11-07 20:03:00 83.915 kg [facility] BMI 2023-11-07 20:03:00 29.86 kg/m2 [facility] Oxygen saturation in Arterial blood by Pulse oximetry 2023-11-07 20:03:00 98 /min [facility] Systolic blood pressure 2023-10-07 19:09:00 127 mm[Hg] [facility] Diastolic blood pressure 2023-10-07 19:09:00 72 mm[Hg] [facility] Heart rate 2023-10-07 19:09:00 71 /min Unive [facility] Body temperature 2023-10-07 19:09:[address] [facility] Body height 2023-10-07 19:09:[address] [facility] Body weight 2023-10-07 19:09:[address] [facility] BMI 2023-10-07 19:09:00 28.44 kg/m2 Univ [facility] Systolic blood pressure 2023-09-09 17:22:00 125 mm[Hg] [place] [facility] Diastolic blood pressure 2023-09-09 17:22:00 70 mm[Hg] [facility] Heart rate 2023-09-09 17:22:00 87 /min Unive [facility] Body temperature 2023-09-09 17:22:[address] [facility] Body height 2023-09-09 17:22:[address] [facility] Body weight 2023-09-09 17:22:00 79.107 kg [facility] BMI 2023-09-09 17:22:00 28.15 kg/m2 Univ [facility] Systolic blood pressure 2023-08-15 18:15:00 119 mm[Hg] [facility] Diastolic blood pressure 2023-08-15 18:15:00 64 mm[Hg] [facility] Heart rate 2023-08-15 18:15:00 97 /min Unive [facility] Body temperature 2023-08-15 18:15:[address] [facility] Respiratory rate 2023-08-15 18:15:00 18 /min [facility] Body height 2023-08-15 18:15:[address] [facility] Body weight 2023-08-15 18:15:[address] [facility] BMI 2023-08-15 18:15:00 27.44 kg/m2 Univ [facility] Systolic blood pressure 2023-07-18 19:51:00 121 mm[Hg] [facility] Diastolic blood pressure 2023-07-18 19:51:00 76 mm[Hg] [facility] Heart rate 2023-07-18 19:51:00 89 /min Unive [facility] Body temperature 2023-07-18 19:51:[address] [facility] Body height 2023-07-18 19:51:[address] [facility] Body weight 2023-07-18 19:51:00 75.116 kg [facility] BMI 2023-07-18 19:51:00 26.73 kg/m2 Univ [facility] Systolic blood pressure 2022-07-02 21:19:00 116 mm[Hg] [facility] Diastolic blood pressure 2022-07-02 21:19:00 74 mm[Hg] [facility] Heart rate 2022-07-02 21:19:00 91 /min Unive [facility] Body temperature 2022-07-02 21:19:[address] [facility] Body height 2022-07-02 21:19:[address] [facility] Body weight 2022-07-02 21:19:00 87.907 kg [facility] BMI 2022-07-02 21:19:00 31.28 kg/m2 Univ [facility] Systolic blood pressure 2022-01-15 22:00:00 148 mm[Hg] [facility] Diastolic blood pressure 2022-01-15 22:00:00 81 mm[Hg] [facility] Heart rate 2022-01-15 22:00:00 79 /min [facility] Body temperature 2022-01-15 22:00:[address] [facility] Respiratory rate 2022-01-15 22:00:00 16 /min [facility] Oxygen saturation in Arterial blood by Pulse oximetry 2022-01-15 22:00:00 100 /min [facility] Body height 2022-01-14 08:52:00 167.6 cm [facility] Body weight 2022-01-14 08:52:00 83.008 kg [facility] BMI 2022-01-14 08:52:00 29.54 kg/m2 Univ [facility] Systolic blood pressure 2022-01-10 16:34:00 120 mm[Hg] [facility] Diastolic blood pressure 2022-01-10 16:34:00 81 mm[Hg] [facility] Heart rate 2022-01-10 16:16:00 88 /min Unive [facility] Body temperature 2022-01-10 16:16:[address] [facility] Body height 2022-01-10 16:16:00 167.6 cm [facility] Body weight 2022-01-10 16:16:00 84.006 kg [facility] BMI 2022-01-10 16:16:00 29.89 kg/m2 Univ [facility] Systolic blood pressure 2021-12-27 22:39:00 129 mm[Hg] [facility] Diastolic blood pressure 2021-12-27 22:39:00 73 mm[Hg] [facility] Heart rate 2021-12-27 22:34:00 102 /min Unive [facility] Body temperature 2021-12-27 22:34:[address] [facility] Respiratory rate 2021-12-27 22:34:00 18 /min [facility] Body height 2021-12-27 22:34:00 167.6 cm [facility] Body weight 2021-12-27 22:34:00 83.734 kg [facility] BMI 2021-12-27 22:34:00 29.80 kg/m2 [facility] Heart rate 2021-12-20 19:15:00 103 /min [facility] Oxygen saturation in Arterial blood by Pulse oximetry 2021-12-20 19:15:00 99 /min [facility] Systolic blood pressure 2021-12-20 18:30:00 118 mm[Hg] [facility] Diastolic blood pressure 2021-12-20 18:30:00 71 mm[Hg] [facility] Body temperature 2021-12-20 16:16:[address] [facility] Respiratory rate 2021-12-20 16:16:00 18 /min [facility] Body height 2021-12-20 16:08:00 167.6 cm [facility] Body weight 2021-12-20 16:08:00 81.92 kg [facility] BMI 2021-12-20 16:08:00 29.15 kg/m2 [facility] Systolic blood pressure 2021-12-20 15:42:00 140 mm[Hg] [facility] Diastolic blood pressure 2021-12-20 15:42:00 79 mm[Hg] [facility] Heart rate 2021-12-20 15:24:00 82 /min [facility] Body temperature 2021-12-20 15:24:[address] [facility] Respiratory rate 2021-12-20 15:20:00 18 /min [facility] Body height 2021-12-20 15:20:00 167.6 cm [facility] Body weight 2021-12-20 15:20:00 82.101 kg [facility] BMI 2021-12-20 15:20:00 29.21 kg/m2 [facility] Procedures Procedure Date / Time Performed Performing Clinician Source CBC WITH DIFF 2024-07-13 03:16:00 Natividad Knowles [facility] POCT TEST 2024-07-13 01:27:[address] [facility] URINALYSIS 2024-07-13 01:26:00 Natividad Knowles [facility] CBC WITH DIFF 2024-02-05 08:57:00 Chuck Casper [facility] CENTRAL NEURAXIAL BLOCK 2024-02-04 13:35:[address] [facility] CBC WITH DIFF 2024-02-04 09:35:00 Chuck Casper [facility] HEPATITIS B SURFACE ANTIGEN 2024-02-04 09:35:[address] [facility] HB ABO GROUPING 2024-02-04 09:35:00 Chuck Casper [facility] RHO (D) IMMUNE GLOBULIN 2024-02-04 09:35:00 Casper, Chuck [facility] ADC OR QUINN ONLY - RPR 2024-02-04 09:35:00 Yao Casper [facility] HIV 1/2 AG-AB WITH REFLEX 2024-02-04 09:35:[address] [facility] POCT URINALYSIS W/O SPECIFIC GRAVITY 2024-01-28 00:00:[address] [facility] >14 WEEKS US LIMITED 2024-01-22 02:34:39 Chuck Casper [facility] DSU PRE-OP 2024-01-21 05:01:00 Doctor Unass igned, [place] [facility] POCT URINALYSIS W/O SPECIFIC GRAVITY 2024-01-21 00:00:[address] [facility] POCT URINALYSIS W/O SPECIFIC GRAVITY 2024-01-10 00:00:[address] [facility] DME/SUPPLY JUSTIFICATION 2023-11-20 06:01:00 Doc tor Unassigned, [place] [facility] DME/SUPPLY JUSTIFICATION 2023-11-07 06:01:00 Doc tor Unassigned, [place] [facility] POCT URINALYSIS W/O SPECIFIC GRAVITY 2023-11-07 00:00:[address] [facility] SECOND AND THIRD TRIMESTER ULTRASOUND 2023-10-15 19:46:[address] [facility] POCT URINALYSIS W/O SPECIFIC GRAVITY 2023-10-07 00:00:[address] [facility] POCT URINALYSIS W/O SPECIFIC GRAVITY 2023-09-09 00:00:[address] [facility] FLU VACC ([id number]), 6 MO-64 YRS, .5ML, IM, QUAD (FLUCELVAX) 2023-08-15 18:25:[address] [facility] POCT URINALYSIS W/O SPECIFIC GRAVITY 2023-08-15 00:00:00 Chuck Casper [facility] SCANNED LAB RESULTS 2023-08-06 05:01:00 Doctor Ej marinellisignparadise, [place] [facility] US OB TRANSVAGINAL 2023-07-19 00:31:44 CasperChuck Lew U [facility] URINE DRUG (IMMUNOASSAY) - COMPREHENSIVE DRUG SCREEN 2023-07-18 20:22:[address] [facility] ASSIGNMENT OF BENEFITS 2023-07-18 19:33:02 Docto r Unassigned, [place] [facility] POCT TEST 2023-07-18 00:00:[address] [facility] POCT URINALYSIS W/O SPECIFIC GRAVITY 2023-07-18 00:00:[address] [facility] POCT TEST 2022-07-02 00:00:[address] [facility] CBC WITH DIFF 2022-01-15 09:29:00 Tremayne Chuckkenji Hackett [facility] CENTRAL NEURAXIAL BLOCK 2022-01-14 18:48[facility] 2022-01-14 14:43:[address] [facility] URINALYSIS 2022-01-14 14:43:00 Tremayne Chuckkenji Hackett [facility] PROTEIN CREAT RATIO URINE RANDOM 2022-01-14 14:43:00 Tremayne Chuck [facility] HB ABO GROUPING 2022-01-14 08:40:00 Tremayne Chuckkenji Hackett [facility] RHO (D) IMMUNE GLOBULIN 2022-01-14 08:40:00 Tremayne Chuck [facility] SGOT (ASPARTATE AMINO TRANSFER) 2022-01-14 08:36:00 Tremayne Chuck [facility] CREATININE 2022-01-14 08:36:00 Chuck Casper [facility] ALANINE AMINO TRANSFERASE(SGPT 2022-01-14 08:36:00 Tremayne Chuck [facility] URIC ACID 2022-01-14 08:36:00 Chuck Casper [facility] CBC WITH DIFF 2022-01-14 08:36:00 Chuck Casper [facility] HEPATITIS B SURFACE ANTIGEN 2022-01-14 08:36:[address] [facility] HIV 1/2 AG-AB WITH REFLEX 2022-01-14 08:36:[address] [facility] COVID-19 (ID NOW RAPID TESTING) 2022-01-14 08:36:[address] [facility] LAB ONLY COVID INTERPRETATION 2022-01-14 08:36:[address] [facility] >14 WEEKS US LIMITED 2022-01-10 20:51:[address] [facility] FLU VACC (), 2-64 YRS, .5ML, IM, QUAD (FLUCELVAX) 2022-01-10 16:20:[address] [facility] DSU PRE-OP 2022-01-10 06:01:00 Doctor Unass igned, [place] [facility] POCT URINALYSIS W/O SPECIFIC GRAVITY 2022-01-10 00:00:[address] [facility] POCT URINALYSIS W/O SPECIFIC GRAVITY 2021-12-27 00:00:[address] [facility] COVID-19 (ID NOW RAPID TESTING) 2021-12-20 16:32:[address] [facility] POCT URINALYSIS W/O SPECIFIC GRAVITY 2021-12-20 00:00:[address] [facility] Encounters Start Date/Time End Date/Time Encounter Type Admission Type Attending [facility] Care Facility Care Department Encounter ID Source 2021-12-20 13:58:24 Outpatient P [facility] [id number] [facility] 2021-09-05 07:36:08 Emergency [facility] [id number] [facility] 2024-11-09 10:45:00 2024-11-09 10:45:00 Outpatient R CHUCK CASPER VIEN [facility] [id number] [facility] 2024-11-03 15:15:00 2024-11-03 15:15:00 Outpatient R CHUCK CASPER VIEN [facility] [id number] [facility] 2024-09-30 15:45:00 2024-09-30 16:00:00 Emr Analyst Visit 2, Adc Lab Janie Domínguez 2, Adc Lab [facility] 1..840.114 350.1.13.10 4.2.7.2.686 [id number] [facility] 2024-09-30 14:00:00 2024-09-30 15:07:49 Outpatient R JANIE DOMÍNGUEZ [facility] [id number] [facility] 2024-09-30 14:00:00 2024-09-30 15:07:49 Office Visit Janie Domínguez [facility] 1..840.114 350.1.13.10 4.2.7.2.686 [id number] [facility] 2024-09-18 08:00:00 2024-09-18 08:00:00 Outpatient R JANIE DOMÍNGUEZ [facility] [id number] [facility] 2024-08-29 10:56:00 2024-08-29 11:40:00 Emergency X ROXANNE ALLEN ERICCA [facility] E[facility] [id number] [facility] 2024-08-29 10:56:00 2024-08-29 11:40:00 Emergency Roxanne Allen [facility] 1.840.114 350.1.13.10 4.2.7.2.686 [id number] [facility] 2024-07-12 20:12:00 2024-07-12 22:55:00 Emergency X NATIVIDAD KNOWLES PAMALA [facility] ERT [id number] [facility] 2024-07-12 20:12:00 2024-07-12 22:55:00 Emergency Natividad Knowles [facility] 1.840.114 350.1.13.10 4.2.7.2.686 [id number] [facility] 2024-03-10 15:30:00 2024-03-10 15:30:00 Outpatient SANDRA QUINTEROS [facility] [id number] [facility] 2024-03-05 13:00:00 2024-03-05 13:00:00 Outpatient CHUCK GARLAND [facility] [id number] [facility] 2024-02-26 15:00:00 2024-02-26 15:00:00 Outpatient SANDRA QUINTEROS [facility] [id number] [facility] 2024-02-04 04:02:00 2024-02-05 17:10:00 [facility] [id number] [facility] 2024-02-04 04:02:00 2024-02-05 17:10:00 Hospital Encounter Chuck Casper [facility] 1..840.114 350.1.13.10 4.2.7.2.686 [id number] [facility] 2024-02-04 08:35:00 2024-02-04 13:27:00 Anesthesia Event Trinh Larson David K [facility] 1..840.114 350.1.13.10 4.2.7.2.686 [id number] [facility] 2024-01-30 16:00:00 2024-01-30 16:00:00 Outpatient SANDRA QUINTEROS [facility] [id number] [facility] 2024-01-28 14:15:00 2024-01-28 14:42:12 Routine Visit Chuck Casper [facility] PROFESSIO COUNTS INCLUDE 234 [facility] AT [facility] 1..840.114 350.1.13.10 4.2.7.2.686 [id number] [facility] 2024-01-28 13:45:00 2024-01-28 14:10:41 Outpatient R CHUCK CASPER [facility] [id number] [facility] 2024-01-28 13:45:00 2024-01-28 14:00:00 Emr Analyst Visit 2, Adc Lab Chuck Casper [facility] 1.2.840.114 350.1.13.10 4.2.7.2.686 [id number] [facility] 2024-01-22 00:00:00 2024-01-22 00:00:00 Case Management Chuck Casper [facility] 1.2.840.114 350.1.13.10 4.2.7.2.686 [id number] [facility] 2024-01-22 00:00:00 2024-01-22 00:00:00 Patient Secure Msg Doctor Unassigned, [place] [facility] 1.2.840.114 350.1.13.10 4.2.7.2.686 [id number] [facility] 2024-01-21 16:00:00 2024-01-21 16:30:00 Office Visit Sandra Orlando [facility] 1.2.840.114 350.1.13.10 4.2.7.2.686 [id number] [facility] 2024-01-21 16:00:00 2024-01-21 16:00:00 Outpatient R SANDRA ORLANDO [facility] [id number] [facility] 2024-01-21 15:45:00 2024-01-21 16:00:00 Emr Analyst Visit 2, Adc Lab Chuck Casper [facility] 1.2.840.114 350.1.13.10 4.2.7.2.686 [id number] [facility] 2024-01-21 14:45:00 2024-01-21 15:54:10 [facility] 1.2.840.114 350.1.13.10 4.2.7.2.686 [id number] [facility] 2024-01-21 00:00:00 2024-01-21 00:00:00 Orders Only Doctor Unassigned, [place] [facility] 1.2840.114 350.1.13.10 4.2.7.2.686 [id number] [facility] 2024-01-17 15:15:00 2024-01-17 15:15:00 Outpatient R CHUCK CASPER [facility] [id number] [facility] 2024-01-14 00:00:00 2024-01-14 00:00:00 Telephone Chuck Casper [facility] 1.2.840.114 350.1.13.10 4.2.7.2.686 [id number] [facility] 2024-01-10 10:00:00 2024-01-10 10:58:36 Outpatient R JOEANGELOJANIE [facility] [id number] [facility] 2024-01-10 10:00:00 2024-01-10 10:58:36 Routine Visit Janie Domínguez [facility] 1.2.840.114 350.1.13.10 4.2.7.2.686 [id number] 134 [id number] [facility] 2023-12-31 00:00:00 2023-12-31 00:00:00 Patient Secure Msg Chuck Casper [facility] 1.2.840.114 350.1.13.10 4.2.7.2.686 [id number] [facility] 2023-12-05 16:15:00 2023-12-05 16:15:00 Outpatient [facility] TUTU [facility]PEREN [facility] [facility] [id number] [facility] 2023-11-25 11:30:00 2023-11-25 11:30:00 Outpatient P [facility] [id number] [facility] 2023-11-20 00:00:00 2023-11-20 00:00:00 Telephone Chuck Casper [facility] 1.2840.114 350.1.13.10 4.2.7.2.686 [id number] 134 [id number] [facility] 2023-11-20 00:00:00 2023-11-20 00:00:00 Orders Only Doctor Unassigned, [place] [facility] 1.2840.114 350.1.13.10 4.2.7.2.686 [id number] [id number] [facility] 2023-11-19 15:30:00 2023-11-19 15:30:00 Outpatient R SANDRA ORLANDO [facility] [id number] [facility] 2023-11-13 13:00:00 2023-11-13 13:00:00 Outpatient R [facility] [id number] [facility] 2023-11-07 13:45:00 2023-11-07 14:20:12 Outpatient R CHUCK CASPER [facility] [id number] [facility] 2023-11-07 13:45:00 2023-11-07 14:20:12 Routine Visit Chuck Casper [facility] 1.840.114 350.1.13.10 4.2.7.2.686 [id number] 134 [id number] [facility] 2023-11-07 00:00:00 2023-11-07 00:00:00 Orders Only Doctor Unassigned, [place] [facility] 1.284.114 350.1.13.10 4.2.7.2.686 [id number] [id number] [facility] 2023-11-06 16:15:00 2023-11-06 16:15:00 Outpatient R CHUCK CASPER [facility] [id number] [facility] 2023-10-16 00:00:00 2023-10-16 00:00:00 Telephone Chuck Casper [facility] 1..840.114 350.1.13.10 4.2.7.2.686 [id number] 134 [id number] [facility] 2023-10-15 13:00:00 2023-10-15 13:47:12 Outpatient P AJ DOBBS [facility] [id number] [facility] 2023-10-15 13:00:00 2023-10-15 13:47:12 Emr Analyst Visit Ultrasound, Aj Wright [facility] 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 [facility] 1..840.114 350.1.13.10 4.2.7.2.686 [id number] [facility] 2023-10-08 00:00:00 2023-10-08 00:00:00 Patient Secure Msg Tremayne [facility] 1..840.114 350.1.13.10 4.2.7.2.686 [id number] 134 [id number] [facility] 2023-10-07 13:00:00 2023-10-07 13:21:58 Outpatient R CHUCK CASPER [facility] [id number] [facility] 2023-10-07 13:00:00 2023-10-07 13:21:58 Routine Visit Chuck Casper [facility] 1..840.114 350.1.13.10 4.2.7.2.686 [id number] 134 [id number] [facility] 2023-09-12 16:00:00 2023-09-12 16:00:00 Outpatient R CHUCK CASPER [facility] [id number] [facility] 2023-09-09 11:45:00 2023-09-09 12:59:53 Outpatient R CHUCK CASPER [facility] [id number] [facility] 2023-09-09 11:45:00 2023-09-09 12:00:00 Emr Analyst Visit 2, Adc Lab Chuck Casper [facility] BUILDING 1.2.840.114 350.1.13.10 4.2.7.2.686 [id number] [facility] 2023-09-09 11:00:00 2023-09-09 11:46:58 Routine Visit Chuck Casper [facility] BUILDING 1.2.840.114 350.1.13.10 4.2.7.2.686 [id number] 134 [id number] [facility] 2023-09-06 00:00:00 2023-09-06 00:00:00 Telephone Chuck Casper [facility] BUILDING 1.2.840.114 350.1.13.10 4.2.7.2.686 [id number] 134 [id number] [facility] 2023-08-31 00:00:00 2023-08-31 00:00:00 Outpatient GC_GCBZW_Ka diyala_S PRIV PRIV [id number] [facility] 2023-08-15 14:00:00 2023-08-15 14:15:00 Emr Analyst Visit 2, [facility] 1.2.840.114 350.1.13.10 4.2.7.2.686 [id number] 353 [id number] [facility] 2023-08-15 13:15:00 2023-08-15 13:48:36 Outpatient R CHUCK CASPER [facility] [id number] [facility] 2023-08-15 13:15:00 2023-08-15 13:48:36 Routine Visit Chuck Casper [facility] BUILDING 1.2.840.114 350.1.13.10 4.2.7.2.686 [id number] 134 [id number] [facility] 2023-08-12 00:00:00 2023-08-12 00:00:00 Telephone Chuck Casper [facility] BUILDING 1.2.840.114 350.1.13.10 4.2.7.2.686 [id number] 134 [id number] [facility] 2023-08-12 00:00:00 2023-08-12 00:00:00 Patient Secure Msg Doctor Unassigned, [place] [facility] BUILDING 1.2.840.114 350.1.13.10 4.2.7.2.686 [id number] 134 [id number] [facility] 2023-08-08 00:00:00 2023-08-08 00:00:00 Patient Secure Msg Chuck Casper [facility] BUILDING 1.2.840.114 350.1.13.10 4.2.7.2.686 [id number] 134 [id number] [facility] 2023-08-06 11:00:00 2023-08-06 11:45:48 Outpatient R CHUCK CASPER [facility] [id number] [facility] 2023-08-06 11:00:00 2023-08-06 11:15:00 Emr Analyst Visit 2, Adc Lab Chuck Casper [facility] 1.2.840.114 350.1.13.10 4.2.7.2.686 [id number] 353 [id number] [facility] 2023-08-06 00:00:00 2023-08-06 00:00:00 Orders Only Doctor Unassigned, [place] [facility] 1.2.840.114 350.1.13.10 4.2.7.2.686 [id number] [id number] [facility] 2023-07-19 00:00:00 2023-07-19 00:00:00 Telephone Chuck Casper [facility] 1.2.840.114 350.1.13.10 4.2.7.2.686 [id number] 134 [id number] [facility] 2023-07-19 00:00:00 2023-07-19 00:00:00 Telephone Chuck Casper [facility] 1.2.840.114 350.1.13.10 4.2.7.2.686 [id number] 134 [id number] [facility] 2023-07-18 14:30:00 2023-07-18 15:39:15 Outpatient R CHUCK CASPER [facility] [id number] [facility] 2023-07-18 14:30:00 2023-07-18 15:39:15 Initial Visit Chuck Casper [facility] 1.2.840.114 350.1.13.10 4.2.7.2.686 [id number] 134 [id number] [facility] 2023-07-18 00:00:00 2023-07-18 00:00:00 Orders Only Doctor Unassigned, [place] [facility] 1.2.840.114 350.1.13.10 4.2.7.2.686 [id number] [id number] [facility] 2023-07-18 00:00:00 2023-07-18 00:00:00 Telephone Chuck Casper [facility] 1.2.840.114 350.1.13.10 4.2.7.2.686 [id number] 134 [id number] [facility] 2023-07-04 14:00:00 2023-07-04 14:00:00 Outpatient R CHUCK CASPER [facility] [id number] [facility] 2023-07-01 10:00:00 2023-07-01 10:00:00 Outpatient R TREMAYNE [facility] [id number] [facility] 2023-06-27 00:00:00 2023-06-27 00:00:00 [facility] 1.2.840.114 350.1.13.10 4.2.7.2.686 [id number] 134 [id number] [facility] 2022-07-25 13:00:00 2022-07-25 13:00:00 Outpatient R TREMAYNE [facility] [id number] [facility] 2022-07-02 16:15:00 2022-07-02 16:40:38 Outpatient R CHUCK CASPER [facility] [id number] [facility] 2022-07-02 16:15:00 2022-07-02 16:40:38 Routine Visit Chuck Cas[facility] 1.2.840.114 350.1.13.10 4.2.7.2.686 [id number] 134 [id number] [facility] 2022-02-05 00:00:00 2022-02-05 00:00:00 Patient [facility] 1.2.840.114 350.1.13.10 4.2.7.2.686 [id number] 134 [id number] [facility] 2022-01-17 09:45:00 2022-01-17 09:45:00 Outpatient R CHANDRIKA CLARK [facility] [id number] [facility] 2022-01-14 00:42:00 2022-01-15 19:45:00 Inpatient P CHUCK CASPER [facility] [id number] [facility] 2022-01-14 00:42:00 2022-01-15 19:45:00 Hospital Encounter Chuck Casper [facility] 1.2.840.114 350.1.13.10 4.2.7.2.686 [id number] 083 [id number] [facility] 2022-01-14 12:50:00 2022-01-14 18:07:00 Anesthesia Event Ella Hoffman [facility] 1.2.840.114 350.1.13.10 4.2.7.2.686 [id number] [facility] 2022-01-10 10:45:00 2022-01-10 11:00:00 Emr Analyst Visit 2, Adc Lab Chuck Casper [facility] PROFESSIO NAL BUILDING 1.2840.114 350.1.13.10 4.2.7.2.686 [id number] 353 [id number] [facility] 2022-01-10 09:45:00 2022-01-10 10:45:33 Outpatient R CHUCK CASPER [facility] [id number] [facility] 2022-01-10 09:45:00 2022-01-10 10:45:33 Routine Visit Chuck Casper [facility] PROFESSIO NAL BUILDING 1.2840.114 350.1.13.10 4.2.7.2.686 [id number] 134 [id number] [facility] 2022-01-10 00:00:00 2022-01-10 00:00:00 Orders Only Doctor Unassigned, [place] [facility] 1.2.840.114 350.1.13.10 4.2.7.2.686 [id number] [id number] [facility] 2021-12-27 16:00:00 2021-12-27 17:10:59 Outpatient R CHUCK CASPER [facility] [id number] [facility] 2021-12-27 16:00:00 2021-12-27 17:10:59 [facility]ine [facility] 1.2.840.114 350.1.13.10 4.2.7.2.686 [id number] 134 [id number] [facility] 2021-12-25 11:00:00 2021-12-25 11:00:00 Outpatient R CHUCK CASPER [facility] [id number] [facility] 2021-12-22 00:00:00 2021-12-22 00:00:00 [facility] 1.2.840.114 350.1.13.10 4.2.7.2.686 [id number] 134 [id number] [facility] 2021-12-21 00:00:00 2021-12-21 00:00:00 Patient Secure Msg Doctor Unassigned, [place] [facility] 1.2.840.114 350.1.13.10 4.2.7.2.686 [id number] 134 [id number] [facility] 2021-12-20 09:57:00 2021-12-20 13:35:00 Outpatient P CHUCK CASPER [facility] [id number] [facility] 2021-12-20 09:57:00 2021-12-20 13:35:00 Hospital Encounter Chuck Casper [facility] 1..840.114 350.1.13.10 4.2.7.2.686 [id number] [facility] 2021-12-20 09:57:00 2021-12-20 09:57:00 Outpatient P CHUCK CASPER [facility] [id number] [facility] 2021-12-20 09:00:00 2021-12-20 09:46:03 Outpatient ISHMAEL ROMEROCY [facility] [id number] [facility] 2021-12-20 09:00:00 2021-12-20 09:46:03 Routine Visit Chandrika Clark [facility] 1..840.114 350.1.13.10 4.2.7.2.686 [id number] 134 [id number] [facility] 2021-12-20 09:00:00 2021-12-20 09:46:03 Outpatient Gala CLARK [facility] [id number] [facility] 2021-12-20 09:00:00 2021-12-20 09:00:00 Outpatient Gala CLARK [facility] [id number] [facility] 2021-12-20 00:00:00 2021-12-20 00:00:00 Orders Only Doctor Unassigned, [place] [facility] 1..840.114 350.1.13.10 4.2.7.2.686 [id number] [id number] [facility] 2021-12-12 00:00:00 2021-12-12 00:00:00 Patient Secure Msg Doctor Unassigned, [place] [facility] 1.2.840.114 350.1.13.10 4.2.7.2.686 [id number] 134 [id number] [facility] 2021-12-07 10:45:00 2021-12-07 11:43:16 Outpatient R CHUCK CASPER [facility] [id number] [facility] 2021-12-07 10:45:00 2021-12-07 11:43:16 Routine Visit Chuck Casper [facility] 1..840.114 350.1.13.10 4.2.7.2.686 [id number] 134 [id number] [facility] 2021-12-07 10:45:00 2021-12-07 11:43:16 Outpatient R CHUCK CASPER [facility] [id number] [facility] 2021-12-07 09:30:00 2021-12-07 09:39:10 Emr Analyst Visit 2, Adc Lab Chandrika Clark [facility] BU[facility] 1.2.840.114 350.1.13.10 4.2.7.2.686 [id number] 353 [id number] [facility] 2021-12-07 09:30:00 2021-12-07 09:39:10 Outpatient R EDUARDO [facility] [id number] [facility] 2021-12-07 00:00:00 2021-12-07 00:00:00 Patient Secure Msg Doctor Unassigned, [place] [facility] BUILDING 1.2.840.114 350.1.13.10 4.2.7.2.686 [id number] 134 [id number] [facility] 2021-12-07 00:00:00 2021-12-07 00:00:00 Case Management Chuck Casper Lew [facility] BUILDING 1.2.840.114 350.1.13.10 4.2.7.2.686 [id number] 134 [id number] [facility] 2021-11-28 09:00:00 2021-11-28 09:00:00 Outpatient R [facility] [id number] [facility] 2021-11-23 15:15:00 2021-11-23 16:03:20 Outpatient R EDUARDO [facility] [id number] [facility] 2021-11-23 15:15:00 2021-11-23 16:03:20 Routine Visit Eduardo Chandrika [facility] 1.2.840.114 350.1.13.10 4.2.7.2.686 [id number] 134 [id number] [facility] 2021-11-06 09:15:00 2021-11-06 09:15:00 Outpatient R CHANDRIKA CLARK [facility] [id number] [facility] 2021-10-31 00:00:00 2021-10-31 00:00:00 Telephone Chuck Casper [facility] BUILDING 1.2.840.114 350.1.13.10 4.2.7.2.686 [id number] 134 [id number] [facility] 2021-10-25 00:00:00 2021-10-25 00:00:00 Case Management Chuck Casper [facility] 1.2.840.114 350.1.13.10 4.2.7.2.686 [id number] 134 [id number] [facility] 2021-10-25 00:00:00 2021-10-25 00:00:00 Orders Only Doctor Unassigned, [place] [facility] 1.2840.114 350.1.13.10 4.2.7.2.686 [id number] [id number] [facility] 2021-10-09 13:01:24 2021-10-09 13:31:08 Routine Visit Chuck Casper [facility] 1.2.840.114 350.1.13.10 4.2.7.2.686 [id number] 134 [id number] [facility] 2021-10-09 13:00:00 2021-10-09 13:31:08 Outpatient R CHUCK CASPER [facility] [id number] [facility] 2021-09-19 00:00:00 2021-09-19 00:00:00 Patient Secure Msg Doctor Unassigned, [place] [facility] 1.2.840.114 350.1.13.10 4.2.7.2.686 [id number] 134 [id number] [facility] 2021-09-12 14:33:50 2021-09-12 15:24:56 Emr Analyst Visit Ultrasound, Adc Mf TremayneChuck Lew comer Lopez [facility] BUILDING 1.2.840.114 350.1.13.10 4.2.7.2.686 [id number] 134 [id number] [facility] 2021-09-12 14:30:00 2021-09-12 15:24:56 Outpatient P FELICIANO AMALIA AJ Comer [facility] [id number] [facility] 2021-09-12 14:30:00 2021-09-12 14:30:00 Outpatient P [facility] [id number] [facility] 2021-09-12 08:29:50 2021-09-12 09:56:58 Emr Analyst Visit 2, Adc Lab Tremayne Chuck Lew [facility] 1.2.840.114 350.1.13.10 4.2.7.2.686 [id number] [facility] 2021-09-12 08:30:00 2021-09-12 08:30:00 Outpatient R [facility] [id number] [facility] 2021-09-12 08:30:00 2021-09-12 08:30:00 Outpatient R CHUCK CASPER [facility] [id number] [facility] 2021-09-12 00:00:00 2021-09-12 00:00:00 Telephone Tremayne Chuck Hackett [facility] 1.2.840.114 350.1.13.10 4.2.7.2.686 [id number] 134 [id number] [facility] 2021-09-11 13:30:00 2021-09-11 13:57:28 Outpatient R CHANDRIKA CLARK [facility] [id number] [facility] 2021-09-11 13:11:00 2021-09-11 13:57:28 Routine Visit Chandrika [facility] BU[facility] 1.2840.114 350.1.13.10 4.2.7.2.686 [id number] 134 [id number] [facility] 2021-09-11 11:00:00 2021-09-11 11:00:00 Outpatient R CHANDRIKA CLARK [facility] [id number] [facility] 2021-09-07 08:15:00 2021-09-07 08:15:00 Outpatient R [facility] [id number] [facility] 2021-09-07 08:15:00 2021-09-07 08:15:00 Outpatient R [facility] [id number] [facility] 2021-08-21 13:45:00 2021-08-21 17:44:00 Emergency Ally Schultz Vien [facility] 1.20.114 350.1.13.10 4.2.7.2.686 [id number] [facility] 2021-08-21 00:00:00 2021-08-21 00:00:00 Orders Only Doctor Unassigned, [place] [facility] 1.2840.114 350.1.13.10 4.2.7.2.686 [id number] [id number] [facility] 2021-08-21 00:00:00 2021-08-21 00:00:00 Telephone Chuck Casper [facility] 1.20.114 350.1.13.10 4.2.7.2.686 [id number] 134 [id number] [facility] 2021-08-18 00:00:00 2021-08-18 00:00:00 Telephone Chandrika Clark [facility] Building 1.2840.114 350.1.13.10 4.2.7.2.686 [id number] 134 [id number] [facility] 2021-08-10 12:14:34 2021-08-10 12:29:34 Emr Analyst Visit Pob, Adc Lab [facility] 1.2840.114 350.1.13.10 4.2.7.2.686 [id number] 353 [id number] [facility] 2021-08-10 11:12:58 2021-08-10 11:55:09 Routine Visit Chuck Casper [facility] Building 1.2840.114 350.1.13.10 4.2.7.2.686 [id number] 134 [id number] [facility] 2021-08-10 11:15:00 2021-08-10 11:15:00 Outpatient R CHUCK CASPER [facility] [id number] [facility] 2021-08-10 10:50:11 2021-08-10 11:05:11 Emr Analyst Visit 2, Adc Lab Chuck Casper [facility] Building 1.2840.114 350.1.13.10 4.2.7.2.686 [id number] 353 [id number] [facility] 2021-08-10 00:00:00 2021-08-10 00:00:00 Orders Only Doctor Unassigned, [place] [facility] 1.2840.114 350.1.13.10 4.2.7.2.686 [id number] [id number] [facility] 2021-07-12 14:32:14 2021-07-12 15:21:48 Routine Visit Chandrika Clark [facility] Building 1.2840.114 350.1.13.10 4.2.7.2.686 [id number] 134 [id number] [facility] 2021-07-12 14:15:00 2021-07-12 14:15:00 Outpatient R CHANDRIKA CLARK [facility] [id number] [facility] 2021-06-22 00:00:00 2021-06-22 00:00:00 Patient Secure Msg Doctor Unassigned, [place] [facility] 1..840.114 350.1.13.10 4.2.7.2.686 [id number] 134 [id number] [facility] 2021-06-21 11:00:00 2021-06-21 11:00:00 Outpatient R [facility] [id number] [facility] 2021-06-14 14:34:53 2021-06-14 16:03:09 Initial Visit Chuck Casper Vivian L [facility] 1..840.114 350.1.13.10 4.2.7.2.686 [id number] 134 [id number] [facility] 2021-06-14 14:30:00 2021-06-14 14:30:00 Outpatient R LOTTIE CANDELARIO [facility] [id number] [facility] 2021-06-14 00:00:00 2021-06-14 00:00:00 Orders Only Doctor Unassigned, [place] [facility] 1..840.114 350.1.13.10 4.2.7.2.686 [id number] [facility] 2021-06-13 08:45:00 2021-06-13 08:45:00 Outpatient R CHUCK CASPER [facility] [id number] [facility] 2021-06-09 00:00:00 2021-06-09 00:00:00 Telephone Chuck Casper [facility] 1..840.114 350.1.13.10 4.2.7.2.686 [id number] 134 [id number] [facility] 2020-12-23 00:00:00 2020-12-23 00:00:00 Patient Secure Msg Doctor Unassigned, [place] [facility] 1.2.840.114 350.1.13.10 4.2.7.2.686 [id number] 134 [id number] [facility] 2020-12-21 00:00:00 2020-12-21 00:00:00 Case Management AdumLottie [facility] 1.2.840.114 350.1.13.10 4.2.7.2.686 [id number] 134 [id number] [facility] 2020-12-21 00:00:00 2020-12-21 00:00:00 Case Management Adum, Lottie Tiwari [facility] 1.2.840.114 350.1.13.10 4.2.7.2.686 [id number] 134 [id number] 2020-12-16 11:14:06 2020-12-16 12:17:33 Office Visit Adum, Lottie Tiwari [facility] 1.2.840.114 350.1.13.10 4.2.7.2.686 [id number] 134 [id number] [facility] 2020-12-16 11:14:06 2020-12-16 12:17:33 Office Visit AdumLottie [facility] 1.2.840.114 350.1.13.10 4.2.7.2.686 [id number] 134 [id number] 2020-12-16 11:00:00 2020-12-16 11:00:00 Outpatient R ADRACHNA, LOTTIE [facility] [id number] [facility] 2020-12-13 02:18:00 2020-12-13 02:18:00 Outpatient LISTER_MELI DAVID NEUSMAN [facility] [id number] [facility] Program 2020-11-16 00:00:00 2020-11-16 00:00:00 Telephone Chuck Casper [facility] 1.2.840.114 350.1.13.10 4.2.7.2.686 [id number] 134 [id number] [facility] 2020-09-26 09:00:00 2020-09-26 09:00:00 [id number] 2020-09-22 15:30:00 2020-09-22 15:30:00 Outpatient R CHUCK CASPER [facility] [id number] [facility] 2020-08-01 08:13:49 2020-08-02 09:52:50 Initial Visit Chuck Casper [facility] Building 1.2.840.114 350.1.13.10 4.2.7.2.686 [id number] 134 [id number] [facility] 2020-08-02 00:00:00 2020-08-02 00:00:00 Case Management Chandrika Clark [facility] Building 1.2.840.114 350.1.13.10 4.2.7.2.686 [id number] 134 [id number] [facility] 2020-08-02 00:00:00 2020-08-02 00:00:00 Telephone Chuck Casper [facility] nal Building 1.2.840.114 350.1.13.10 4.2.7.2.686 [id number] 134 [id number] [facility] 2020-08-01 08:59:02 2020-08-01 09:14:02 Emr Analyst Visit 2, Adc Lab Chuck Casper [facility] Building 1.2.840.114 350.1.13.10 4.2.7.2.686 [id number] [facility] 2020-08-01 08:00:00 2020-08-01 08:00:00 Outpatient R CHUCK CASPER [facility] [id number] [facility] 2020-08-01 00:00:00 2020-08-01 00:00:00 Telephone Chuck Casper [facility] Annabelle Vale [facility] Building 1.2.840.114 350.1.13.10 4.2.7.2.686 [id number] 134 [id number] [facility] 2020-08-01 00:00:00 2020-08-01 00:00:00 Orders Only Doctor Unassigned, [place] [facility] 1.2840.114 350.1.13.10 4.2.7.2.686 [id number] [facility] 2019-12-04 00:00:00 2019-12-04 00:00:00 Orders Only Doctor Unassigned, [place] [facility] 1.2.840.114 350.1.13.10 4.2.7.2.686 [id number] [facility] Results Test Description Test Time Test Comments Results Result Co mments Source [facility] [id number] 01:27:00* Test Item Value Reference Range Interpretation Comme nts POCT PREG (test code = 1605) Negative On board controls acceptable with C Line (test code = 3574) Yes POCT PREG LOT # (test code = 3575) [id number] POCT PREG TEST DATE ( test code = 3576) 2025-08-13 Lab Interpretation (test cod e = 47590-6) Normal [facility] with [id number] 10:18:21* Test Item Value Reference Range Interpretation Comme nts WBC (test code = 6690-2) 10.30 4.30-11.10 RBC (test code = 789-8) 3.64 3.93-5.25 L HGB (test code = 718-7) 9.9 g/dL 11.6-15.0 L HCT (test code = 4544-3) 31.0 % 35.7-45.2 L MCV (test code = 787-2) 85.2 fL 80.6-95.5 MCH (test code = 785-6) 27.2 pg 25.9-32.8 MCHC (test code = 786-4) 31.9 g/dL 31.6-35.1 RDW-SD (test code = 10239-7) 51.8 fL 39.0-49.9 H RDW-CV (test code = 788-0) 17.4 % 12.0-15.5 H PLT (test code = 777-3) 168 166-358 MPV (test code = 11013-8) 11.8 fL 9.5-12.9 NRBC/100 WBC (test code = 2301803084) 0.0 0.0-10.0 NRBC x10^3 (test code = 6789836879) See_Comment [Automated messa ge] The system which generated this result transmitted reference range: 10*3/?L. The reference range was not used to interpret this result as normal/abnormal. GRAN MAT (NEUT) % (test code = 770-8) 64.9 % IMM GRAN % (test code = 3033061987) 0.80 % LYMPH % (test code = 736-9) 26.3 % MONO % (test code = 5905-5) 6.2 % EOS % (test code = 713-8) 1.5 % BASO % (test code = 706-2) 0.3 % GRAN MAT x10^3(ANC) (test code = 9409470286) 6.69 10*3/uL 1.88-7.09 IMM GRAN x10^3 (test code = 4734694084) 0.08 10*3/uL 0.00-0.06 H LYMPH x10^3 (test code = 731-0) 2.71 10*3/uL 1.32-3.29 MONO x10^3 (test code = 742-7) 0.64 10*3/uL 0.33-0.92 EOS x10^3 (test code = 711-2) 0.15 10*3/uL 0.03-0.39 BASO x10^3 (test code = 704-7) 0.03 10*3/uL 0.01-0.07 Lab Interpretation (test code = 06666-6) Abnormal [facility] (D) IMMUNE [id number] 19:41:29* Test Item Value Reference Range Interpretation Comme nts RHIG CANDIDATE? (test code = 5188) No- see comment Patient is not a candidate for RhIg- Patient is Rh Positive.Performed at [facility] Laboratory Services - [facility] Blood [address] [place] [phone] Free: [phone] No. [id number] [facility]axial [id number] 13:35:00 Trinh Larson CRNA ? ? 02/04/2024 ?8:50 AM Central Neuraxial Block Date/Time: 02/04/2024 8:35 AM Performed by: Trinh Larson CRNAAuthorized by: Erick Gill MD ?End Time: 02/04/2024 8:40 AMReason for Block: Labor analgesia and Patient requestStaff: ?Anesthesiologist: Erick Gill MD ?Performed by: anesthesiologistPreanesthetic Checklist: anesthesia consent, IV checked, monitors and equipment checked, ob/surgical consent approval, ob/surgical consent verified, patient identified, pre-op evaluation, risks and benefits explained, surgical consent, timeout performed and site markedProcedure: ?Type of Neuraxial: Epidural ?Epidural Description: 1st attempt ? Sterility Prep hand hygiene, mask, gown, gloves, drape and cap ? ?Sedation Level no sedation ?Patient Position: sitting ?Prep: Betadine ? ?Monitoring: quality assurance monitor body / EKG, continuous pulse ox, ETCO2, heart rate / toco, heart rate and NIBP ?Location: lumbar (1-5) ?Lumbar: L4-L5 ?Approach: midline ? ?Technique: LANDON saline ?Guidance with: landmark technique}Epidural/Spinal [place] and/or Catheter: ?Epidural/Spinal Kit: [employer] (BD) ?Needle Type: Tuohy ?Needle Gauge: 17 G ?Needle Length: 3.5 in (8.89 cm) ?NeedleInsertion Depth: 5 ?Catheter Type: multiport ? ?Catheter Size: 19 G ? ?Catheter at Skin Depth: 12 ?Number of Attempts: 1 ?Test Dose: lidocaine 1.5% with epinephrine 1-to-200,000 ? ?Dose: 3 cc ? ?Catheter Securement Method: clear occlusive dressing, liquid medical adhesive, stabilization device and surgical tapeAssessment: ?Sensory Level: below T10 ?Block Outcome: patient comfortable, patient satisfied, patient tolerated procedure well, positive pain relief and successful block ? ?Procedure Assessment: patient tolerated procedure well with no complicationsUnMethodist [facility] Urinalysis w/o Specific [id number] 19:20:00* Test Item Value Reference Range Interpretation Comme nts POCT PH U (test code = 3254) n/a 5-8 POCT U LEUK EST (test code = 3263) n/a Negative - N egative POCT U NIT (test code = 3262) n/a Negative - Negati ve POCT U PROT (test code = 3259) TRACE Negative - Negat enrrique POCT U GLU (test code = 3256) 100 Negative - Negati ve POCT U KETONE (test code = 3258) n/a Negative - Neg ative POCT U BLD (test code = 3257) n/a Negative - Negati ve [facility] Urinalysis w/o Specific [id number] 20:11:00* Test Item Value Reference Range Interpretation Comme nts POCT PH U (test code = 3254) n/a 5-8 POCT U LEUK EST (test code = 3263) n/a Negative - Negative POCT U NIT (test code = 3262) n/a Negative - Negati ve POCT U PROT (test code = 3259) negative Negative - Negat enrrique POCT U GLU (test code = 3256) negative Negative - Negati ve POCT U KETONE (test code = 3258) n/a Negative - Neg ative POCT U BLD (test code = 3257) n/a Negative - Negati ve [facility] Urinalysis w/o Specific [id number] 16:41:00* Test Item Value Reference Range Interpretation Comme nts POCT PH U (test code = 3254) n/a 5-8 POCT U LEUK EST (test code = 3263) n/a Negative - Negative POCT U NIT (test code = 3262) n/a Negative - Negati ve POCT U PROT (test code = 3259) negative Negative - Negat enrrique POCT U GLU (test code = 3256) negative Negative - Negati ve POCT U KETONE (test code = 3258) n/a Negative - Neg ative POCT U BLD (test code = 3257) n/a Negative - Negati ve [facility] Urinalysis w/o Specific [id number] 20:02:00* Test Item Value Reference Range Interpretation Comme nts POCT PH U (test code = 3254) n/a 5-8 POCT U LEUK EST (test code = 3263) n/a Negative - Negative POCT U NIT (test code = 3262) n/a Negative - Negati ve POCT U PROT (test code = 3259) negative Negative - Negat enrrique POCT U GLU (test code = 3256) negative Negative - Negati ve POCT U KETONE (test code = 3258) n/a Negative - Neg ative POCT U BLD (test code = 3257) n/a Negative - Negati ve [facility] Urinalysis w/o Specific [id number] 20:02:00* Test Item Value Reference Range Interpretation Comme nts POCT PH U (test code = 3254) n/a 5-8 POCT U LEUK EST (test code = 3263) n/a Negative - Negative POCT U NIT (test code = 3262) n/a Negative - Negati ve POCT U PROT (test code = 3259) negative Negative - Negat enrrique POCT U GLU (test code = 3256) negative Negative - Negati ve POCT U KETONE (test code = 3258) n/a Negative - Neg ative POCT U BLD (test code = 3257) n/a Negative - Negati ve [facility] URINALYSIS W/O SPECIFIC [id number] 19:10:00* Test Item Value Reference Range Interpretation Comme nts POCT PH U (test code = 3254) N/A 5-8 POCT U LEUK EST (test code = 3263) N/A Negative - Negative POCT U NIT (test code = 3262) N/A Negative - Negati ve POCT U PROT (test code = 3259) negative Negative - Negat enrrique POCT U GLU (test code = 3256) normal Negative - Negati ve POCT U KETONE (test code = 3258) N/A Negative - Neg ative POCT U BLD (test code = 3257) N/A Negative - Negati ve [facility] URINALYSIS W/O SPECIFIC [id number] 17:20:00* Test Item Value Reference Range Interpretation Comme nts POCT PH U (test code = 3254) n/a 5-8 POCT U LEUK EST (test code = 3263) n/a Negative - Negative POCT U NIT (test code = 3262) n/a Negative - Negati ve POCT U PROT (test code = 3259) Negative Negative - Negat enrrique POCT U GLU (test code = 3256) Normal Negative - Negati ve POCT U KETONE (test code = 3258) n/a Negative - Neg ative POCT U BLD (test code = 3257) n/a Negative - Negati ve [facility] URINALYSIS W/O SPECIFIC [id number] 18:27:00* Test Item Value Reference Range Interpretation Comme nts POCT PH U (test code = 3254) n/a 5-8 POCT U LEUK EST (test code = 3263) n/a Negative - N egative POCT U NIT (test code = 3262) n/a Negative - Negati ve POCT U PROT (test code = 3259) neg Negative - Negat enrrique POCT U GLU (test code = 3256) neg Negative - Negati ve POCT U KETONE (test code = 3258) n/a Negative - Neg ative POCT U BLD (test code = 3257) n/a Negative - Negati ve [facility] URINALYSIS W/O SPECIFIC [id number] 19:54:00* Test Item Value Reference Range Interpretation Comme nts POCT PH U (test code = 3254) 6 mg/dl 5-8 POCT U LEUK EST (test code = 3263) Negative Negative - Negative POCT U NIT (test code = 3262) Negative Negative - Negati ve POCT U PROT (test code = 3259) Negative Negative - Negat enrrique POCT U GLU (test code = 3256) Normal Negative - Negati ve POCT U KETONE (test code = 3258) ++mod Negative - Neg ative POCT U BLD (test code = 3257) Negative Negative - Negati ve [facility] [id number] 19:54:00* Test Item Value Reference Range Interpretation Comme nts POCT PREG (test code = 1605) Positive On board controls acceptable with C Line (test code = 3574) Yes POCT PREG LOT # (test code = 3575) POCT PREG TEST DATE ( test code = 3576) [facility] [id number] 21:25:00* Test Item Value Reference Range Interpretation Comme nts POCT PREG (test code = 1605) Negative On board controls acceptable with C Line (test code = 3574) Yes POCT PREG LOT # (test code = 3575) POCT PREG TEST DATE ( test code = 3576) [facility] with Otnigtovkfnm1231-48-30 09:55:41* Test Item Value Reference Range Interpretation Comme nts WBC (test code = 6690-2) See_Comment H [Automated messa ge] The system which generated this result transmitted reference range: 4.30 - 11.10 10*3/?L. The reference range was not used to interpret this result as normal/abnormal. RBC (test code = 789-8) See_Comment L [Automated messa ge] The system which generated this result transmitted reference range: 3.93 - 5.25 10*6/?L. The reference range was not used to interpret this result as normal/abnormal. HGB (test code = 718-7) 10.4 g/dL 11.6-15.0 L HCT (test code = 4544-3) 32.2 % 35.7-45.2 L MCV (test code = 787-2) 84.5 fL 80.6-95.5 MCH (test code = 785-6) 27.3 pg 25.9-32.8 MCHC (test code = 786-4) 32.3 g/dL 31.6-35.1 RDW-SD (test code = 76733-2) 43.1 fL 39.0-49.9 RDW-CV (test code = 788-0) 13.9 % 12.0-15.5 PLT (test code = 777-3) See_Comment [Automated messa ge] The system which generated this result transmitted reference range: 166 - 358 10*3/?L. The reference range was not used to interpret this result as normal/abnormal. MPV (test code = 04710-1) 11.4 fL 9.5-12.9 NRBC/100 WBC (test code = 5845439115) See_Comment [Automated Thumbs Up ssage] The system which generated this result transmitted reference range: 0.0 - 10.0 /100 WBCs. The reference range was not used to interpret this result as normal/abnormal. NRBC x10^3 (test code = 8058191695) <0.01 See_Comment [Automated messa ge] The system which generated this result transmitted reference range: 10*3/?L. The reference range was not used to interpret this result as normal/abnormal. GRAN MAT (NEUT) % (test code = 770-8) 69.8 % IMM GRAN % (test code = 8064516245) 1.00 % LYMPH % (test code = 736-9) 22.2 % MONO % (test code = 5905-5) 5.9 % EOS % (test code = 713-8) 0.8 % BASO % (test code = 706-2) 0.3 % GRAN MAT x10^3(ANC) (test code = 0822974967) 8.34 10*3/uL 1.88-7.09 H IMM GRAN x10^3 (test code = 7464479438) 0.12 10*3/uL 0.00-0.06 H LYMPH x10^3 (test code = 731-0) 2.66 10*3/uL 1.32-3.29 MONO x10^3 (test code = 742-7) 0.71 10*3/uL 0.33-0.92 EOS x10^3 (test code = 711-2) 0.10 10*3/uL 0.03-0.39 BASO x10^3 (test code = 704-7) 0.03 10*3/uL 0.01-0.07 Lab Interpretation (test code = 48162-5) Abnormal [facility] (D) IMMUNE [id number] 22:23:57* Test Item Value Reference Range Interpretation Comme nts RHIG CANDIDATE? (test code = 5055) No- see comment Patient is not a candidate for RhIg- Patient is Rh Positive.Performed at [facility] Laboratory Services - [facility] Blood [address] [place] [phone] Free: [phone] No. [id number] [facility] HospitalHepatitis B Surface [id number] 16:58:33 * Test Item Value Reference Range Interpretation Comme nts HBsAg Semi-Quantitative (jen t code = 5195-3) Negative Negative [facility] HospitalUric Acid [id number] 16:25:48* Test Item Value Reference Range Interpretation Comme [facility] URIC ACID (test code = 4262016404) 3.3 mg/dL 2.9-6.0 Lab Interpretation (test cod e = 96714-8) Normal [facility] HospitalSer [id number] 16:25:48* Test Item Value Reference Range Interpretation Comme [facility] CREATININE (test code = 1792911136) 0.53 mg/dL 0.50-1.04 eGFR (test code = 9494183895) mL/min/1.73m2 ONOFRE (test code = ONOFRE) Association of Glomerular Filtration Rate (GFR) and Staging of Kidney Disease* + + +- +| GFR (mL/min/1.73 m2) ?| With Kidney Damage ?| ?Without Kidney Damage+ ------+ ----+ ------+| ?>90 ?| ?Stage one ?| ? Normal ?+ -+ + -+| ?60-89 ?| ?Stage two ?| ? Decreased GFR ? + + +- +| ?30-59 ?| ?Stage three ?| ? Stage three ? + + +- +| ?15-29 ?| ?Stage four ? | ? Stage four ?+ -+ + -+| ?<15 (or dialysis) ? ?| ?Stage five ? | ? Stage five ?+ -+ + -+ *Each stage assumes the associated GFR level has been in effect for at least three months. ?Stages 1 to 5, with or without kidney disease, indicate chronic kidney disease. Notes: Determination of stages one and two (with eGFR >59mL/min/1.73 m2) requires estimation of kidney damage for at least three months as defined by structural or functional abnormalities of the kidney, manifested by either:Pathological abnormalities or Markers of kidney damage (including abnormalities in the composition of the blood or urine or abnormalities in imaging tests). [facility] HospitalSGOT (Asparate Amino Transfer)2022-01-14 16:25:48* Test Item Value Reference Range Interpretation Comme [facility] AST(SGOT) (test code = 6781333039) 64 U/L 13-40 H Lab Interpretation (test cod e = 91631-4) Abnormal [facility] HospitalAlanine Amino Transferase (SGPT)2022-01-14 16:25:48* Test Item Value Reference Range Interpretation Comme [facility] ALTv (test code = 1742-6) 34 U/L 5-35 Lab Interpretation (test cod e = 03557-1) Normal [facility] HospitalLactate Sgcyfpdlzkorq1276-59-26 15:56:08* Test Item Value Reference Range Interpretation Comme [facility] LDH (test code = 3374035728) 463 U/L 300-600 Lab Interpretation (test cod e = 64436-9) Normal [facility] HospitalHIV 1/2 AG-AB WITH [id number] 11:53:15* Test Item Value Reference Range Interpretation Comme [facility] HIV Semi-quantitative (test code = 73445-9) Negative Negative ONOFRE (test code = ONOFRE) Non-reactive for HIV-1 antigen and HIV-1/HIV-2 antibodies. ?No laboratory evidence of HIV infection. ?Repeat in 2-4 weeks if acute HIV infection is suspected. [facility] HospitalType and Screen - ONCE [id number] 09:27:00 * Test Item Value Reference Range Interpretation Comme [facility] ABO & RH (test code = 20) O Positive Performed at [facility] Laboratory [facility] - [facility] Blood [address] [place] [phone] Free: [phone] No. [id number] IAT (test code = 1185) Negative Performed at [facility] Laboratory [facility] Blood [address] [place], [place] [phone] Free: [phone] No. [id number] [facility] with Mpvjneoszyfs8104-11-37 08:53:53* Test Item Value Reference Range Interpretation Comme nts WBC (test code = 6690-2) See_Comment H [Automated messa ge] The system which generated this result transmitted reference range: 4.30 - 11.10 10*3/?L. The reference range was not used to interpret this result as normal/abnormal. RBC (test code = 789-8) See_Comment L [Automated messa ge] The system which generated this result transmitted reference range: 3.93 - 5.25 10*6/?L. The reference range was not used to interpret this result as normal/abnormal. HGB (test code = 718-7) 10.2 g/dL 11.6-15.0 L HCT (test code = 4544-3) 31.5 % 35.7-45.2 L MCV (test code = 787-2) 84.9 fL 80.6-95.5 MCH (test code = 785-6) 27.5 pg 25.9-32.8 MCHC (test code = 786-4) 32.4 g/dL 31.6-35.1 RDW-SD (test code = 60574-6) 42.8 fL 39.0-49.9 RDW-CV (test code = 788-0) 13.8 % 12.0-15.5 PLT (test code = 777-3) See_Comment [Automated messa ge] The system which generated this result transmitted reference range: 166 - 358 10*3/?L. The reference range was not used to interpret this result as normal/abnormal. MPV (test code = 87535-2) 11.4 fL 9.5-12.9 NRBC/100 WBC (test code = 9759581380) See_Comment [Automated me ssage] The system which generated this result transmitted reference range: 0.0 - 10.0 /100 WBCs. The reference range was not used to interpret this result as normal/abnormal. NRBC x10^3 (test code = 6799481040) <0.01 See_Comment [Automated messa ge] The system which generated this result transmitted reference range: 10*3/?L. The reference range was not used to interpret this result as normal/abnormal. GRAN MAT (NEUT) % (test code = 770-8) 70.8 % IMM GRAN % (test code = 0572508360) 1.40 % LYMPH % (test code = 736-9) 20.3 % MONO % (test code = 5905-5) 6.5 % EOS % (test code = 713-8) 0.6 % BASO % (test code = 706-2) 0.4 % GRAN MAT x10^3(ANC) (test code = 1580898226) 9.31 10*3/uL 1.88-7.09 H IMM GRAN x10^3 (test code = 8952981774) 0.18 10*3/uL 0.00-0.06 H LYMPH x10^3 (test code = 731-0) 2.66 10*3/uL 1.32-3.29 MONO x10^3 (test code = 742-7) 0.85 10*3/uL 0.33-0.92 EOS x10^3 (test code = 711-2) 0.08 10*3/uL 0.03-0.39 BASO x10^3 (test code = 704-7) 0.05 10*3/uL 0.01-0.07 Lab Interpretation (test code = 55981-5) Abnormal [facility] URINALYSIS W/O SPECIFIC [id number] 16:14:00* Test Item Value Reference Range Interpretation Comme nts POCT PH U (test code = 3254) n/a 5-8 POCT U LEUK EST (test code = 3263) n/a Negative - Negative POCT U NIT (test code = 3262) n/a Negative - Negati ve POCT U PROT (test code = 3259) Negative Negative - Negat enrrique POCT U GLU (test code = 3256) Normal Negative - Negati ve POCT U KETONE (test code = 3258) n/a Negative - Neg ative POCT U BLD (test code = 3257) n/a Negative - Negati ve [facility] URINALYSIS W/O SPECIFIC [id number] 22:41:00* Test Item Value Reference Range Interpretation Comme nts POCT PH U (test code = 3254) n/a 5-8 POCT U LEUK EST (test code = 3263) n/a Negative - N egative POCT U NIT (test code = 3262) n/a Negative - Negati ve POCT U PROT (test code = 3259) trace Negative - Negat enrrique POCT U GLU (test code = 3256) Negative - Negati ve POCT U KETONE (test code = 3258) n/a Negative - Neg ative POCT U BLD (test code = 3257) n/a Negative - Negati ve [facility] HospitalPOCT URINALYSIS W/O SPECIFIC [id number] 15:27:00* Test Item Value Reference Range Interpretation Comme nts POCT PH U (test code = 3254) n/a 5-8 POCT U LEUK EST (test code = 3263) n/a Negative - N egative POCT U NIT (test code = 3262) n/a Negative - Negati ve POCT U PROT (test code = 3259) neg Negative - Negat enrrique POCT U GLU (test code = 3256) neg Negative - Negati ve POCT U KETONE (test code = 3258) n/a Negative - Neg ative POCT U BLD (test code = 3257) n/a Negative - Negati ve Lab Interpretation (test cod e = 10265-9) Normal [facility] History and Physical Notes Date/Time Note Provider Source 2024-02-04 09:53:44 TRIAGE HISTORY & PHYSICAL IDENTIFYING DATA Courtney Munguia is 23 year old, /White, 39w0d, female with CLAUDIA 02/11/2024, by Patient Reported. : 2000 Primary Care Physician: PATIENT DOES NOT HAVE A PCP CHIEF COMPLAINT Induction at 39 wks HISTORY OF PRESENT ILLNESS Courtney Munguia is a 23 year old female @ 39w0d +FM. No VB, LOF. + CTX. No pre-eclampsia sx or other complaints. PAST OBSTETRIC HISTORY OB History Para Term AB Living 5 2 2 0 2 2 SAB IAB Ectopic Multiple Live Births 1 0 0 0 2 # Outcome Date GA Lbr Eleazar/2nd Weight Sex Delivery Anes PTL Lv 5 Current 4 Term 01/14/22 37w3d 3120 g M NORMAL SPONT EPI N SO 3 SAB 09/2020 2 AB 12/28/19 1 Term 08/21/18 39w0d 3430 g M VAGINAL EPI SO PAST MEDICAL HISTORY Problem list: Patient Active Problem List Diagnosis Date Noted 39 weeks gestation of 02/04/2024 Positive GBS test 01/28/2024 Nonintractable headache, unspecified chronicity pattern, unspecified headache type 11/07/2023 Chest pain, unspecified type 11/07/2023 SOB (shortness of breath) 11/07/2023 Pain of round ligament during 11/07/2023 History of anxiety 09/09/2023 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 herpes simplex virus (HSV) antibody 08/15/2023 Elevated BP without diagnosis of hypertension 01/10/2022 Anemia of mother in , antepartum 12/27/2021 High-risk in third trimester 08/10/2021 Gastroesophageal reflux disease, unspecified whether esophagitis present 07/14/2018 Operations: Past Surgical History: Procedure Laterality Date ABDOMEN SURGERY PROC UNLISTED APPENDECTOMY 04/2020 FRACTURE SURGERY Left Forearm HERNIA REPAIR @ age 2 UMBILICAL HERNIORRHAPHY @ age 2 Past Medical History: Diagnosis Date Anemia of in third trimester 07/23/2018 Anxiety situational in the past two years Marijuana use 08/10/2021 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 herpes simplex virus (HSV) antibody 08/15/2023 CURRENT HEALTH STATUS Medications: Current Facility-Administered Medications Medication Dose Route Frequency Last Rate Last Admin acyclovir (ZOVIRAX) tablet 400 mg 400 mg Oral TID 400 mg at 02/04/24 0755 carboprost (HEMABATE) injection 250 mcg 250 mcg Intramuscular Q2HPRN D5W-LR IV infusion 1,000 mL 1,000 mL IV Infusion TITRATE 125 mL/hr at 02/04/24 0439 1,000 mL at 02/04/24 0439 FENTanyl PF (SUBLIMAZE (PF)) injection 100 mcg 100 mcg Slow IV Push Q1HPRN lactated ringers IV infusion 500 mL 500 mL IV Infusion ONCE Held at 02/04/24 0415 lactated ringers IV infusion 500 mL 500 mL IV Infusion PRN - SEE INSTRUCTIONS lactated ringers IV infusion 500 mL 500 mL IV Infusion PRN - SEE INSTRUCTIONS lidocaine 1% (PF) (XYLOCAINE) injection 0.3 mL 0.3 mL Infiltration PRN - SEE INSTRUCTIONS methylergonovine (METHERGINE) injection 0.2 mg 0.2 mg Intramuscular Q4HPRN miSOPROStoL (CYTOTEC) tablet 200 mcg 200 mcg Rectal PRN oxytocin (PITOCIN) 30 units in NS 500 mL IV infusion 600 mL/hr IV Infusion PRN oxytocin (PITOCIN) 30 units in NS 500 mL IV infusion 2-40 epifanio-units/min IV Infusion TITRATE 4 mL/hr at 02/04/24 0628 4 epifanio-units/min at 02/04/24 0628 penicillin GK 3 million units in NS 50 mL IV infusion (CNR) 3 Million Units IV Piggyback Q4H ABX 3,000,000 Units at 02/04/24 0755 proMETHazine (PHENERGAN) 25 mg in NS 50 mL IV piggyback (CNR) 25 mg IV Piggyback Q4HPRN sodium citrate-citric acid (BICITRA) 500-334 mg/5 mL solution 30 mL 30 mL Oral PRE-PROCEDURE ONCE sodium citrate-citric acid (BICITRA) 500-334 mg/5 mL solution 30 mL 30 mL Oral PRE-PROCEDURE ONCE terbutaline (BRETHINE) injection 0.25 mg 0.25 mg Subcutaneous PRN tranexamic acid (CYKLOKAPRON) 1,000 mg in NaCl 0.9% (NS) 250 mL piggyback 1,000 mg IV Piggyback PRN Facility-Administered Medications Ordered in Other Encounters Medication Dose Route Frequency Last Rate Last Admin lidocaine-epinephrine (XYLOCAINE W/EPINEPHRINE) 1.5 %-1:200,000 injection Epidural ONCE INTRA PROCEDURE 3 mL at 02/04/24 0840 PIB fentaNYL-ropivacaine 2 mcg/mL-0.1 % (PF) in NS 200 mL epidural infusion RTU Epidural CONTINUOUS PRN 10 mL/hr at 02/04/24 0842 10 mL/hr at 02/04/24 0842 Allergies and drug reactions: Antifungal [undecylenic ac-zinc undecylena] HOME MEDICATIONS Medications Prior to Admission Medication Sig Dispense Refill Last Dose ferrous sulfate (IRON, FERROUS SULFATE,) 325 mg (65 mg iron) tablet Take 1 tablet by mouth in the morning and 1 tablet in the evening. 30 tablet 0 02/04/2024 valACYclovir (VALTREX) 500 mg tablet Take 1 tablet by mouth in the morning and 1 tablet in the evening. 30 tablet 2 02/04/2024 PNV no.95/ferrous fum/folic ac ( ORAL) Take by mouth. 02/04/2024 esomeprazole (NEXIUM) 40 mg capsule Take 1 capsule by mouth daily with breakfast. 30 capsule 1 Not Taking SOCIAL HISTORY Tobacco History: Social History Tobacco Use Smoking Status Never Passive exposure: Never Smokeless Tobacco Never Drug History: Social History Substance and Sexual Activity Drug Use Not Currently Types: Marijuana Comment: quit, vpes thc ocassional for the morning sickness Alcohol History: Social History Substance and Sexual Activity Alcohol Use Not Currently Comment: FAMILY HISTORY Family History Problem Relation Age of Onset [...] NoFHx Neurological NoFHx Osteoporosis NoFHx Psychiatry NoFHx REVIEW OF SYSTEMS General: negative Constitutional: negative Eyes: negative ENT/Mouth: negative Cardiovascular: negative Respiratory: negative Gastrointestinal:negative Genitourinary: see HPI Musculoskeletal: negative Skin/breast: negative Neurological: negative Psychiatric: negative Endocrine: negative Hemat/Lymph: negative Allergic/Immuno:none VITAL SIGNS BP: (110-143)/(55-95) Temp: [36.6 ?C (97.9 ?F)-36.7 ?C (98 ?F)] Temp source: Axillary (02/03 0930) Pulse: [68-105] Resp: [18] SpO2: [98 %-100 %] Height: [167.6 cm (5' 6")] Weight: [97.8 kg (215 lb 9.6 oz)] BMI (calculated): [34.8] PHYSICAL EXAMINATIONS Gen: alert and oriented, well appearing, no distress CV: RRR, normal S1/S2, no m/r/g Resp: normal work of breathing, lungs CTAB Abd: gravid, soft, NTTP Ext: no calf tenderness or edema : SVE 2/50/-3, status post AROM (clear fluid) without complications REVIEW OF LABORATORY, PATHOLOGY, AND RADIOLOGY DATA Lab results: Type & Screen HIV Hep B Syphilis Chlamydia ABO & RH Date Value Ref Range Status 02/04/2024 O POSITIVE Final No results found for: "HIVMULTIPLEX" No components found for: "HBSHBSAG" No results found for: "SYPIGG" C. trachomatis Nucleic Acid Date Value Ref Range Status 01/21/2024 Negative Negative Final IAT Date Value Ref Range Status 02/04/2024 Negative Final Varicella Rubella Glucose Group B Strep CBC VZV IgG antibody Date Value Ref Range Status 08/10/2021 Positive Negative Final Rubella screen IgG Date Value Ref Range Status 08/06/2023 Equivocal Negative Final GLUC 1 HR Date Value Ref Range Status 08/15/2023 69 (L) 120 - 170 mg/dL Final No results found for: "CGBS" HGB Date Value Ref Range Status 02/04/2024 10.3 (L) 11.6 - 15.0 g/dL Final HCT Date Value Ref Range Status 02/04/2024 31.9 (L) 35.7 - 45.2 % Final PLT Date Value Ref Range Status 02/04/2024 195 166 - 358 10*3/?L Final Active Hospital Problems Diagnosis Date Noted 39 weeks gestation of 02/04/2024 Positive GBS test 01/28/2024 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 herpes simplex virus (HSV) antibody 08/15/2023 Anemia of mother in , antepartum 12/27/2021 High-risk in third trimester 08/10/2021 Resolved Hospital Problems No resolved problems to display. Present on Admission: 39 weeks gestation of Anemia of mother in , antepartum High-risk in third trimester Positive GBS test 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 herpes simplex virus (HSV) antibody Placenta Accreta Screening Prior ? : No Prior Uterine Surgery?: No Placenta low lying/previa in current ? : No Screening outcome: A positive screening outcome indicates a history of prior delivery or prior uterine surgery, AND the presence of either a placenta low lying/previa or ultrasound suspicion of PASD in the current . Negative screening. ASSESSMENT AND PLAN Courtney Munguia is a 23 year old female @ 39w0d here for an elective induction. Induction - s/p AROM. 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 Casper, please see OB Summary for more details Chuck aCsper MD 02/04/2024 9:55 AM [facility] - Health Procedure Notes Date/Time Note Provider Source 2024-02-04 08:46:23 Associated Order(s): Central Neuraxial Block Central Neuraxial Block Date/Time: 02/04/2024 8:35 AM Performed by: Trinh Larson CRNA Authorized by: Erick Gill MD End Time: 02/04/2024 8:40 AM Reason for Block: Labor analgesia and Patient request Staff: Anesthesiologist: Erick Gill MD Performed by: anesthesiologist Preanesthetic Checklist: anesthesia consent, IV checked, monitors and equipment checked, ob/surgical consent approval, ob/surgical consent verified, patient identified, pre-op evaluation, risks and benefits explained, surgical consent, timeout performed and site marked Procedure: Type of Neuraxial: Epidural Epidural Description: 1st attempt Sterility Prep hand hygiene, mask, gown, gloves, drape and cap Sedation Level no sedation Patient Position: sitting Prep: Betadine Monitoring: quality assurance monitor body / EKG, continuous pulse ox, ETCO2, heart rate / toco, heart rate and NIBP Location: lumbar (1-5) Lumbar: L4-L5 Approach: midline Technique: LANDON saline Guidance with: landmark technique} Epidural/Spinal [place] and/or Catheter: Epidural/Spinal Kit: [employer] ([employer]) Needle Type: Tuohy Needle Gauge: 17 G Needle Length: 3.5 in (8.89 cm) Needle Insertion Depth: 5 Catheter Type: multiport Catheter Size: 19 G Catheter at Skin Depth: 12 Number of Attempts: 1 Test Dose: lidocaine 1.5% with epinephrine 1-to-200,000 Dose: 3 cc Catheter Securement Method: clear occlusive dressing, liquid medical adhesive, stabilization device and surgical tape Assessment: Sensory Level: below T10 Block Outcome: patient comfortable, patient satisfied, patient tolerated procedure well, positive pain relief and successful block Procedure Assessment: patient tolerated procedure well with no complications NACR-NURSE CAN MACHINE 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
[2024-11-29 14:53] LABS: Specific Gravity 1.026 (1.005-1.030); Urine Bacteria None Seen /HPF (<20); Urine Bilirubin NEGATIVE (Negative); Urine Blood Negative (Negative); Urine Clarity Extremely Turbid (Clear); Urine Color Yellow (Yellow); Urine Crystals Unidentified Few /HPF (None Seen); Urine Culture Reflex Order REFLEXED; Urine Glucose NEGATIVE (Negative); Urine Ketones NEGATIVE (Negative); Urine Microscopic Reflex YN ORDER UMIC; Urine Mucus 1+ /HPF (None Seen); Urine Nitrite NEGATIVE (Negative); Urine Protein TRACE (Negative); Urine RBC <5 /HPF (None Seen); Urine Urobilinogen Normal (Normal); Urine Yeast (Budding) Trace /HPF (None Seen); Urine pH 6.5 (5.0-7.0)
[2024-11-29 15:05] LABS: Absolute Eosinophils 0.2 K/uL (0-0.5); Absolute Lymphocytes (CBC) 1.4 K/uL (0.7-4.9); Absolute Monocytes 0.4 K/uL (0.1-1.3); Basophils % 0.7 % (0-1.3); Eosinophils % 2.5 % (0-4.4); Hematocrit 37.9 % (36.0-45.0); Lymphocytes % 24.1 % (15.3-44.8); MCH 29.7 pg (27.0-35.0); MCHC 34.4 g/dL (32.0-36.0); MCV 86.4 fL (80-100); MPV 8.7 fL (7.6-11.3); Neutrophils % 66.7 % (41.7-73.7); Platelets 207 thou/uL (152-406); RBC Red Blood Cell Count 4.38 M/uL (3.86-4.86); Red Cell Distribution Width 13.4 % (12.1-15.2)
[2024-11-29 15:16] LABS: Albumin 3.5 g/dL (3.4-5.0); Anion Gap 8.8 mEq/L (5.0-15.0); Bilirubin Total 0.4 mg/dL (0.2-1.0); Globulin 3.6 g/dL (2.3-3.5); Potassium 3.8 mEq/L (3.5-5.1); Protein, Total 7.1 g/dL (6.4-8.2)
--- NOTE | 2024-11-29 15:58 | RAD REPORT ---
EXAMINATION: CT ABDOMEN AND PELVIS WITH CONTRAST CLINICAL INDICATION: Female, 24 years old.ABD PAIN TECHNIQUE: CT abdomen and pelvis was performed, after the administration of IV contrast, [facility]. Axial, sagittal and coronal reconstructions were obtained. One or more of the following dose reduction techniques were used: Automated exposure control, adjustment of the mA and/o r kV according to patient size, and/or iterative reconstruction. Unless otherwise specified, incidental findings do not require dedicated imaging follow-up. [id number]. COMPARISON: 05/26/2020 FINDINGS: LOWER CHEST: No acute process identified.No significant pericardial effusion. Small hiatal hernia wit h circumferential thickening of the esophagus which could reflect esophagitis. UPPER GI: No significant abnormality. LIVER: Hepatic steatosis, but otherwise unremarkable. GALLBLADDER/BILE DUCTS: No biliary ductal dilatation.? PANCREAS: No mass, ductal dilation, or sergo-pancreatic fluid. SPLEEN: Unremarkable. ADRENALS: No adrenal masses. KIDNEYS AND URETERS: No hydronephrosis.Low density and/or too small to characterize renal lesions whi ch are statistically benign.No renal or ureteral calculi. ABDOMINAL AORTA AND OTHER VESSELS: Normal caliber aorta and IVC. PERITONEUM: Small volume of pelvic free fluid which is likely physiologic. LYMPH NODES: No pathologic lymphadenopathy. ABDOMINAL WALL: Unremarkable SMALL BOWEL/COLON: Fluid-filled small bowel with mild mesenteric edema and wall thickening. The colon ic wall also appears mildly thickened.Appendix absent. URINARY BLADDER: Underdistended but grossly unremarkable. REPRODUCTIVE ORGANS: Left adnexal cystic lesion measuring 4 cm. <=5 cm: No follow-up imaging recommen ded. MUSCULOSKELETAL: No acute or suspicious osseous abnormality. ADDITIONAL FINDINGS: None. IMPRESSION: Findings likely representing a mild enterocolitis.
--- NOTE | 2024-11-29 16:27 | ER ---
Nurse's Notes [facility] Name: Dafne Munguia Age: 24 yrs Sex: Female : 2000 Arrival Date: 11/29/2024 Time: 14:13 Bed 14 Private MD: Diagnosis: Mild Enterocolitis Presentation: 11/29 14:22 Chief complaint: Patient states: ABDOMINAL PAIN AND SWELLING X 1 WEEK. Coronavirus db screen: Client denies travel out of the [place] in the last 14 days. At this time, the client does not indicate any symptoms associated with coronavirus-19. Ebola Screen: Patient negative for fever greater than or equal to 101.5 degrees Fahrenheit, and additional compatible Ebola Virus Disease symptoms Patient denies exposure to infectious person. Patient denies travel to an Ebola-affected area in the 21 days before illness onset. No symptoms or risks identified at this time. Initial Sepsis Screen: Does the patient meet any 2 criteria? No. Patient's initial sepsis screen is negative. Does the patient have a suspected source of infection? No. Patient's initial sepsis screen is negative. Risk Assessment: Do you want to hurt yourself or someone else? Patient reports no desire to harm self or others. Onset of symptoms was November 23, 2024. 14:22 Method Of Arrival: Ambulatory db 14:22 Acuity: [place] 3 db Triage Assessment: 14:22 General: Appears in no apparent distress. uncomfortable, Behavior is calm, cooperative. db Pain: Complains of pain in abdomen. Neuro: Level of Consciousness is awake, alert, obeys commands, Oriented to person, place. GI: Abdomen is non-distended, Reports lower abdominal pain, bloating. 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 - Infectious Disease History:: Denies. - Social history:: Smoking status: Reported history of juuling and/or vaping. Patient uses street drugs, marijuana. Screenin:31 [facility] ED Fall Risk Assessment (Adult) History of falling in the last 3 months, kj2 including since admission No falls in past 3 months (0 pts) Confusion or Disorientation No (0 pts) Intoxicated or Sedated No (0 pts) Impaired Gait No (0 pts) Mobility Assist Device Used No (0 pt) Altered Elimination No (0 pt) Score/Fall Risk Level 0 - 2 = Low Risk Maintained a safe environment, Hourly rounding (assess needs \T\ fall precautionary measures) done. Abuse screen: Denies threats or abuse. Denies injuries from another. Nutritional screening: No deficits noted. Tuberculosis screening: No symptoms or risk factors identified. Assessment: 15:29 General: Appears in no apparent distress. uncomfortable, Behavior is calm, cooperative. kj2 Pain: Complains of pain in abdomen Pain currently is 6 out of 10 on a pain scale. Neuro: Level of Consciousness is awake, alert, obeys commands, Oriented to person, place, time, situation. Cardiovascular: Patient's skin is warm and dry. Respiratory: Airway is patent Respiratory effort is even, unlabored. GI: Abdomen is tender to palpation. : No signs and/or symptoms were reported regarding the genitourinary system. 16:24 Reassessment: Patient appears in no apparent distress at this time. Patient and/or kj2 family updated on plan of care and expected duration. Pain level reassessed. Patient is alert, oriented x 3, equal unlabored respirations, skin warm/dry/pink. Vital Signs: 14:22 BP 140 / 77; Pulse 92; Resp 16; Temp 98.2; Pulse Ox 97% ; Weight 90.72 kg; Height 5 ft. db 6 in. ; Pain 10/10; 15:28 BP 121 / 75; Pulse 78; Resp 20; Temp 98.3; Pulse Ox 97% on R/A; kj2 16:24 BP 123 / 72; Pulse 76; Resp 18; Temp 98; Pulse Ox 100% on R/A; kj2 14:22 Body Mass Index 32.28 (90.72 kg, 167.64 cm) db 14:22 Pain Scale: Adult db ED Course: 14:17 Patient arrived in ED. al6 14:18 Valentina [facility]manzor [facility]-C [facility] kb 14:18 Valente Mccormack MD is Attending Physician. kb 14:22 Arm band placed on. db 14:23 Triage completed. db 14:53 CBC with Diff Sent. bc6 14:53 CMP Sent. bc6 14:53 Lipase Sent. 6 14:53 Initial lab(s) drawn, by me, sent to lab. Inserted saline lock: 20 gauge in right bc6 forearm, using aseptic technique. Blood collected. Flushed with 10 mL NS. 15:24 Mariel Moran, RN is Primary Nurse. kj2 15:33 No provider procedures requiring assistance completed. kj2 15:34 Patient has correct armband on for positive identification. Bed in low position. Call kj2 light in reach. Provided Education on: call light. 15:46 CT Abd/Pelvis - IV Contrast Only In Process Unspecified. EDMS 16:27 IV discontinued, intact, bleeding controlled, No redness/swelling at site. Pressure kj2 dressing applied. Administered Medications: No medications were administered Medication: 15:33 VIS not applicable for this client. kj2 Outcome: 16:26 Discharge ordered by MD. kb 16:26 Discharged to home ambulatory, kj2 16:26 Condition: stable 16:26 Discharge instructions given to patient, Instructed on discharge instructions, follow up and referral plans. Demonstrated understanding of instructions, follow-up care, medications, 16:43 Patient left the ED. kj2 Signatures: Dispatcher [employer] EDMS Valentina Umanzor, STEP DOWN NURSE-C STEP DOWN NURSE-Vero Cota, RN RN Rosi Arenas [facility] Mariel Moran, RN RN kj2 Anuja George ri6
--- NOTE | 2024-11-29 16:27 | EDPHYS ---
Physician Documentation [facility] Name: Dafne Munguia Age: 24 yrs Sex: Female : 2000 Arrival Date: 11/29/2024 Time: 14:13 Bed 14 Private MD: ED Physician Valente Mccormack HPI: 11/29 14:19 This 24 yrs old Female presents to ER via Unassigned with complaints of Abdominal Pain. kb 14:19 Pt is a 24 year old female who presents for abd pain and swelling that started 1 week kb ago. Denies n/v/d, fever. Reports regular bowel movements. . 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 - Infectious Disease History:: Denies. - Social history:: Smoking status: Reported history of juuling and/or vaping. Patient uses street drugs, marijuana. ROS: 14:20 Constitutional: As per HPI kb Exam: 14:20 Constitutional: This is a well developed, well nourished patient who is awake, alert, kb and in no acute distress. Head/Face: Normocephalic, atraumatic. ENT: Moist Mucous membranes Cardiovascular: Regular rate Respiratory: Respirations even and unlabored. No increased work of breathing. Talking in full sentences Skin: Warm, dry with normal turgor. Normal color. MS/ Extremity: Pulses equal, no cyanosis. Neurovascular intact. Full, normal range of motion. Neuro: Awake and alert, GCS 15, oriented to person, place, time, and situation. Vital Signs: 14:22 BP 140 / 77; Pulse 92; Resp 16; Temp 98.2; Pulse Ox 97% ; Weight 90.72 kg; Height 5 ft. db 6 in. ; Pain 10/10; 15:28 BP 121 / 75; Pulse 78; Resp 20; Temp 98.3; Pulse Ox 97% on R/A; kj2 16:24 BP 123 / 72; Pulse 76; Resp 18; Temp 98; Pulse Ox 100% on R/A; kj2 14:22 Body Mass Index 32.28 (90.72 kg, 167.64 cm) db 14:22 Pain Scale: Adult db MDM: 14:18 Medical Screening Exam initiated 16:25 Differential diagnosis: colitis, diverticulitis, UTI. Data reviewed: vital signs, nurses notes. Counseling: I had a detailed discussion with the patient and/or guardian regarding the historical points, exam findings, and any diagnostic results supporting the discharge/admit diagnosis, lab results, radiology results, the need for outpatient follow up, a family practitioner, to return to the emergency department if symptoms worsen or persist or if there are any questions or concerns that arise at home. 16:26 I considered the following discharge prescriptions or medication management in the emergency department I discussed and recommended Over The Counter medications, Antibiotics: At this time antibiotics are not recommended, antibiotics considered but pt is nontoxic in appearance, afebrile with normal labs. Educated on return precautions. 11/29 14:21 Order name: CBC with Diff; Complete Time: 15:14 11/29 14:21 Order name: CMP; Complete Time: 15:21 11/29 14:21 Order name: Lipase; Complete Time: 15:21 11/29 14:21 Order name: Test, Urine; Complete Time: 15:00 11/29 14:21 Order name: Urinalysis w/ reflexes; Complete Time: 15:00 11/29 14:57 Order name: Urine Culture EDGA 11/29 14:21 Order name: CT Abd/Pelvis - IV Contrast Only; Complete Time: 15:59 11/29 14:21 Order name: IV Saline Lock; Complete Time: 14:53 11/29 14:21 Order name: Labs collected and sent; Complete Time: 14:53 kb Administered Medications: No medications were administered Disposition Summary: 11/29/24 16:26 Discharge Ordered Notes: Location: Home Condition: Stable Diagnosis - Mild Enterocolitis Followup: kb - With: Emergency Department - When: As needed - Reason: Worsening of condition Followup: kb - With: Private Physician - When: 2 - 3 days - Reason: Recheck today's complaints, Continuance of care, Re-evaluation by your physician Discharge Instructions: - Discharge Summary Sheet kb - Viral Gastroenteritis, Adult, [id number] Forms: - Medication Reconciliation Form kb - Antibiotic Education kb - Prescription Opioid Use kb - Patient Portal Instructions kb - Leadership Thank You Letter kb Addendum: 11/30/2024 17:19 Co-signature as Attending Physician, Valente Mccormack MD I reviewed the patient's care r n provided by the Advanced Practice Provider and agree with the diagnosis and treatment plan. Signatures: Dispatcher [employer] EDMS Valentina Umanzor, BRUSH MAKER MACHINE-C BRUSH MAKER MACHINE-Ckb Valente Mccormack MD MD rn Benton, Danielle, RN RN db Corrections: (The following items were deleted from the chart) 11/29 14:21 14:21 Abdomen Pelvis W Con+CT.RAD.BRZ ordered. EDGA EDGA
[2024-11-29 19:19] VITALS: BP 123/72; TEMP 98; O2SAT 100
== END 2024-11-29 16:43 | disposition home or self-care (01) ==
LOC: ER 14:13
DX: K52.9 Noninfective gastroenteritis and colitis, unspecified (principal)
CPT/HCPCS: 87088; 85025; 81001; 87086; 36415; 81025; 83690; 80053; 74177; 99284; Q9967